=== PATIENT | female | born 1940 | race Caucasian/White ===

== ENCOUNTER 2017-10-26 20:28 | Emergency (ER) | payer MEDICARE, OTHER ==
[~2017-10-26] VITALS: Ht 161.3 cm; Wt 79.5 kg
[~2017-10-26 20:28] MED LIST: AMIO200T57 PO; ASPI-1265 PO; ATOR40TA3 PO; CARV-49 PO; CLOP75TA15 PO; FERR325T29 PO; GLIM1TAB PO; LANTUS SUBCUT; LEVO100T PO; METF10004 PO; SITA50TA PO; VENL150C2 PO; WARF4TAB69 PO
[2017-10-26 23:46] VITALS: BP 132/74
== END 2017-10-27 00:34 | disposition home or self-care (01) ==
LOC: ER 20:28
DX: S93.601A Unspecified sprain of right foot, initial encounter (principal); S83.91XA Sprain of unspecified site of right knee, initial encounter; I25.10 Atherosclerotic heart disease of native coronary artery without angina pectoris; E03.9 Hypothyroidism, unspecified; Z79.82 Long term (current) use of aspirin; Z79.4 Long term (current) use of insulin; Z79.01 Long term (current) use of anticoagulants; Z79.899 Other long term (current) drug therapy; Z90.49 Acquired absence of other specified parts of digestive tract; Z95.1 Presence of aortocoronary bypass graft; Z98.890 Other specified postprocedural states; W18.30XA Fall on same level, unspecified, initial encounter; Y93.89 Activity, other specified; Y92.89 Other specified places as the place of occurrence of the external cause; Y99.8 Other external cause status
CPT/HCPCS: 73564; 73610; 82948; 99284

== ENCOUNTER 2018-08-09 07:02 | Day surgery (SDC) | payer MEDICARE, OTHER ==
[2018-08-08 12:17] LABS: BASOPHILS # (AUTO) 0.1 X10'3 (0-0.2); BASOPHILS % (AUTO) 0.6 % (0-1); EOSINOPHILS % (AUTO) 0.2 % (0-6); HEMATOCRIT 35.4 % (35.0-45.0); HEMOGLOBIN 11.7 g/dl (12.0-16.0); LYMPHOCYTES # (AUTO) 1.2 X10'3 (1.1-4.8); LYMPHOCYTES % (AUTO) 11.6 % (21-51); MEAN CORPUSCULAR HEMOGLOBIN 29.3 PG (27.0-31.0); MEAN CORPUSCULAR VOLUME 88.8 FL (78-98); MEAN PLATELET VOLUME 7.6 FL (7.4-10.4); MONOCYTES # (AUTO) 1.1 X10'3 (0-0.9); MONOCYTES % (AUTO) 10.5 % (2-12); NEUTROPHILS # (AUTO) 8.1 X10'3 (1.8-7.7); NEUTROPHILS % (AUTO) 77.1 % (42-75); PLATELET COUNT 209 X10'3 (140-440); RED BLOOD COUNT 3.99 X10'6 (4.20-5.60); RED CELL DISTRIBUTION WIDTH 14.3 % (11.5-14.5); WHITE BLOOD COUNT 10.5 X10'3 (4.5-11.0)
[2018-08-08 12:25] LABS: ALBUMIN 3.2 G/DL (3.4-5.0); ANION GAP 7 (8-16); BLOOD UREA NITROGEN 39 MG/DL (7-18); BUN/CREATININE RATIO 34.2 (6.6-38.0); CALCIUM 9.4 MG/DL (8.5-10.1); CHLORIDE 102 MMOL/L (99-107); CREATININE 1.14 MG/DL (0.40-0.90); GLUCOSE 212 MG/DL (70-104); POTASSIUM 4.3 MMOL/L (3.5-5.1); SODIUM 137 MMOL/L (135-145); TOTAL CARBON DIOXIDE 28.1 MMOL/L (24-32); eGFR 46 ML/MIN
[2018-08-08 12:32] LABS: PARTIAL THROMBOPLASTIN TIME 29 SECONDS (22-32); PROTHROMBIN TIME 10.1 SECONDS (9.0-12.0)
[2018-08-09] VITALS (14 sets, daily range): BP systolic 99–155; BP diastolic 53–77
[~2018-08-09] VITALS: Ht 160 cm; Wt 75.1 kg
[~2018-08-09 07:02] MED LIST changes: +AMIO200T40 PO; -AMIO200T57 PO; -ATOR40TA3 PO; +ATOR40TA7 PO; +METF-438 PO; -METF10004 PO
[2018-08-09] MEDS ORDERED: acetylcysteine 200 MG/ml 4ml vial PO PRN (07:35)
[2018-08-09] MEDS ORDERED: sodium bicarbonate (8.4%) inj. 150 ML in dextrose 5%-water 1,000 ML IV ONE (07:35)
[2018-08-09] MEDS ORDERED: diphenhydrAMINE 25mg capsule PO PRN (07:35)
[2018-08-09] MEDS ORDERED: LORazepam 0.5 MG tablet PO PRN (07:35)
[2018-08-09] MEDS ORDERED: midazolam 2 mg/2 ml injection ONE (09:19)
[2018-08-09] MEDS ORDERED: fentaNYL/PF 50MCG/1 ML 2ML syringe ONE (09:19)
[2018-08-09] MEDS ORDERED: heparin 1,000unit/ml 10ml vial 10 ML ONE (09:19)
[2018-08-09] MEDS ORDERED: nitroGLYCERIN-Tridil 50MG/D5W 250 ML IV ONE (09:19)
[2018-08-09] MEDS ORDERED: LIDOcaine 1% (10mg/ml)w/preservative injection 20ml MDV ONE (09:19)
[2018-08-09] MEDS ORDERED: iohexol 350MG/ML 100ml bottle IV ONE ×2 (09:20→10:28)
[2018-08-09] MEDS ORDERED: iohexol 350 MG/ML 50ML vial IV ONE ×2 (09:20→10:17)
[2018-08-09] MEDS ORDERED: AMLO5TAB PO (09:54)
[2018-08-09] MEDS ORDERED: APIX2.5T PO (09:54)
[2018-08-09] MEDS ORDERED: ROSU40TA PO (09:54)
[2018-08-09] MEDS ORDERED: CARV3.122 PO (09:54)
[2018-08-09] MEDS ORDERED: adenosine 90 MG/30ml kit =/or below 120kg Cath Lab IV ONE (10:38)
== END 2018-08-09 18:00 | disposition home or self-care (01) ==
LOC: SSTAY O 07:02
PROVIDERS: ATTEND Internal Medicine Cardiovascular Disease
DX: I25.10 Atherosclerotic heart disease of native coronary artery without angina pectoris (principal); E78.5 Hyperlipidemia, unspecified; E11.9 Type 2 diabetes mellitus without complications; E03.9 Hypothyroidism, unspecified; I11.0 Hypertensive heart disease with heart failure; I42.0 Dilated cardiomyopathy; K21.9 Gastro-esophageal reflux disease without esophagitis; I48.1 Persistent atrial fibrillation; I50.22 Chronic systolic (congestive) heart failure; F32.9 Major depressive disorder, single episode, unspecified; Z79.4 Long term (current) use of insulin; Z79.899 Other long term (current) drug therapy; Z90.710 Acquired absence of both cervix and uterus; Z96.653 Presence of artificial knee joint, bilateral; Z95.5 Presence of coronary angioplasty implant and graft; Z98.890 Other specified postprocedural states
CPT/HCPCS: 36415; 80048; 82948; 85025; 85610; 85730; 93005; 93459; 93567; 93571; 99152; 99153; A6257; C1769; J0153; J1644; J2001; J2250; J3010; Q0163; Q9967; A4620; C1760; J3490

== ENCOUNTER 2018-08-22 10:11 | Inpatient (IN) | payer MEDICARE, OTHER | END 2018-08-25 19:20 | disposition home or self-care (01) | LOC: MED 3N 08-24 08:24 → ER 10:11 → SUR 3N 13:35 | DX: J18.1 Lobar pneumonia, unspecified organism (principal); I50.23 Acute on chronic systolic (congestive) heart failure; J96.00 Acute respiratory failure, unspecified whether with hypoxia or hypercapnia; I42.9 Cardiomyopathy, unspecified; E11.9 Type 2 diabetes mellitus without complications; Z95.1 Presence of aortocoronary bypass graft; I25.10 Atherosclerotic heart disease of native coronary artery without angina pectoris ==

== ENCOUNTER 2018-12-18 16:22 | Inpatient (IN) | payer MEDICARE, OTHER ==
[~2018-12-18] VITALS: Ht 160 cm; Wt 68.7 kg
[~2018-12-18 16:22] MED LIST changes: -AMIO200T40 PO; +AMIO200T61 PO; +AMLO2.5T5 PO; +APIX2.5T PO; -ASPI-1265 PO; -ATOR40TA7 PO; -CARV-49 PO; +CARV3.122 PO; -CLOP75TA15 PO; -FERR325T29 PO; -LEVO100T PO; +LEVO112T52 PO; +NITR0.4T48 SL; +ROSU40TA22; -WARF4TAB69 PO
[2018-12-18 17:09] LABS: BASOPHILS # (AUTO) 0.1 X10'3 (0-0.2); EOSINOPHILS % (AUTO) 0.4 % (0-6); HEMATOCRIT 31.5 % (35.0-45.0); HEMOGLOBIN 10.2 g/dl (12.0-16.0); LYMPHOCYTES # (AUTO) 1.2 X10'3 (1.1-4.8); LYMPHOCYTES % (AUTO) 16.5 % (21-51); MEAN CORPUSCULAR HEMOGLOBIN 28.9 PG (27.0-31.0); MEAN CORPUSCULAR HGB CONC 32.3 g/dL (33.0-36.5); MEAN CORPUSCULAR VOLUME 89.4 FL (78-98); MEAN PLATELET VOLUME 7.5 FL (7.4-10.4); MONOCYTES # (AUTO) 0.6 X10'3 (0-0.9); MONOCYTES % (AUTO) 8.9 % (2-12); NEUTROPHILS # (AUTO) 5.3 X10'3 (1.8-7.7); NEUTROPHILS % (AUTO) 73.2 % (42-75); PLATELET COUNT 232 X10'3 (140-440); RED BLOOD COUNT 3.52 X10'6 (4.20-5.60); RED CELL DISTRIBUTION WIDTH 15.1 % (11.5-14.5); WHITE BLOOD COUNT 7.2 X10'3 (4.5-11.0)
[2018-12-18 17:22] LABS: PARTIAL THROMBOPLASTIN TIME 32 SECONDS (22-32)
[2018-12-18 17:23] LABS: ALANINE AMINOTRANSFERASE 45 U/L (12-78); ALBUMIN 3.2 G/DL (3.4-5.0); ALBUMIN/GLOBULIN RATIO 0.9 (1.1-1.5); ALKALINE PHOSPHATASE 76 IU/L (46-116); ANION GAP 7 (8-16); ASPARTATE AMINO TRANSFERASE 16 U/L (10-37); BILIRUBIN,TOTAL 0.3 MG/DL (0.1-1.0); BLOOD UREA NITROGEN 38 MG/DL (7-18); BUN/CREATININE RATIO 28.6 (6.6-38.0); CALCIUM 8.8 MG/DL (8.5-10.1); CHLORIDE 107 MMOL/L (99-107); CREATININE 1.33 MG/DL (0.40-0.90); GLUCOSE 153 MG/DL (70-104); POTASSIUM 5.1 MMOL/L (3.5-5.1); SODIUM 139 MMOL/L (135-145); TOTAL CARBON DIOXIDE 24.8 MMOL/L (24-32); TOTAL PROTEIN 6.8 G/DL (6.4-8.2); eGFR 39 ML/MIN
[2018-12-18 17:30] LABS: MAGNESIUM 1.5 MG/DL (1.5-2.4)
[2018-12-18] MEDS ORDERED: furosemide 10 MG/1 ML 10ml inj IV ONE (17:35)
[2018-12-18] MEDS ORDERED: ondansetron/PF 4mg/2ml inj IV PRN (17:55)
[2018-12-18] MEDS ORDERED: acetaminophen 325mg tablet PO PRN (17:55)
[2018-12-18] MEDS ORDERED: mag hydrox/Alum hydrox/simeth 30ml oral suspension PO PRN (17:55)
[2018-12-18] MEDS ORDERED: magnesium hydroxide 30ml (MOM) UD suspension PO PRN (17:55)
[2018-12-18] MEDS ORDERED: APIX5TAB3 PO (17:58)
[2018-12-18] MEDS ORDERED: LEVO100T PO (17:58)
--- NOTE | 2018-12-18 18:33 | NUR ---
Patient resting comfortably in bed. She requests a commode to urinate. Patient assisted with minimum assisnt to transfer to commode. Patient requests assistance making a phone call which was done. Patient updated on POC and has no other questions or requests at this time.
[2018-12-18] MEDS ORDERED: nitroGLYCERIN 0.4mg SUBLingual tab SL PRN (18:35)
[2018-12-18 21:00] VITALS: BP 94/70
[2018-12-18] MEDS: carVEDilol 3.125mg tablet PO SCH (21:00)
[2018-12-18] MEDS: furosemide 10 MG/1 ML 10ml inj IV SCH (21:00)
--- NOTE | 2018-12-18 21:00 | NUR ---
pt arrived from ER via [place], ambulated to bed. oriented to unit. call light, bed low and locked. skin check and MRSA swab done. pt requested admission assessment be done in the morning
[2018-12-18] MEDS ORDERED: glucagon, human recombinant 1mg kit SUBCUT PRN (22:15)
[2018-12-18] MEDS ORDERED: MESSAGE TO PHARMACY PO ONE (22:15)
[2018-12-18] MEDS ORDERED: dextrose ORAL solution 15 GM/59 ML bottle PO PRN ×2 (22:15)
[2018-12-18] MEDS ORDERED: dextrose 50%-water 50ml dispensing syringe IV PRN ×2 (22:15)
[2018-12-18] MEDS: apixaban 5mg tablet PO SCH (22:27)
[2018-12-18] MEDS: insulin glargine (Lantus) pen - multi-dose SQ SCH (22:31)
[2018-12-18 23:00] VITALS: BP 111/41
[2018-12-19 03:00] VITALS: BP 125/77
--- NOTE | 2018-12-19 05:40 | NUR ---
pt complained that she felt a lot of bladder pressure and was unable to void. bladder scan showed 1000, orders for Lantigua obtained. got pt up to BSC, she was able to void about 400. pt would prefer to try to use BSC more before getting Lantigua
[2018-12-19 05:58] LABS: BASOPHILS # (AUTO) 0.1 X10'3 (0-0.2); EOSINOPHILS % (AUTO) 0.1 % (0-6); HEMATOCRIT 32.1 % (35.0-45.0); HEMOGLOBIN 10.7 g/dl (12.0-16.0); LYMPHOCYTES # (AUTO) 1.5 X10'3 (1.1-4.8); LYMPHOCYTES % (AUTO) 22.7 % (21-51); MEAN CORPUSCULAR HEMOGLOBIN 29.2 PG (27.0-31.0); MEAN CORPUSCULAR HGB CONC 33.4 g/dL (33.0-36.5); MEAN CORPUSCULAR VOLUME 87.4 FL (78-98); MEAN PLATELET VOLUME 7.1 FL (7.4-10.4); MONOCYTES # (AUTO) 0.7 X10'3 (0-0.9); MONOCYTES % (AUTO) 11.2 % (2-12); NEUTROPHILS # (AUTO) 4.4 X10'3 (1.8-7.7); PLATELET COUNT 236 X10'3 (140-440); RED BLOOD COUNT 3.67 X10'6 (4.20-5.60); RED CELL DISTRIBUTION WIDTH 15.1 % (11.5-14.5); WHITE BLOOD COUNT 6.7 X10'3 (4.5-11.0)
[2018-12-19 06:11] LABS: ALBUMIN 3.3 G/DL (3.4-5.0); ANION GAP 8 (8-16); BLOOD UREA NITROGEN 39 MG/DL (7-18); BUN/CREATININE RATIO 28.7 (6.6-38.0); CALCIUM 9.2 MG/DL (8.5-10.1); CHLORIDE 108 MMOL/L (99-107); CREATININE 1.36 MG/DL (0.40-0.90); GLUCOSE 66 MG/DL (70-104); SODIUM 143 MMOL/L (135-145); TOTAL CARBON DIOXIDE 26.7 MMOL/L (24-32); eGFR 38 ML/MIN
--- NOTE | 2018-12-19 06:30 | NUR ---
orientee documentation: I have reviewed and agree with all interventions, assessments performed and documented by zander yoon.
--- NOTE | 2018-12-19 06:30 | NUR ---
Problems reprioritized. Patient report given, questions answered & plan of care reviewed with Katya WALLACE.
--- NOTE | 2018-12-19 06:37 | NUR ---
Patient in room PCU 3014A . I have received report from RODRIGO Ashley and had the opportunity to ask questions and assume patient care. Pt resting comfortably at this time, all needs met.
[2018-12-19 07:00] VITALS: BP 142/47
[2018-12-19] MEDS ORDERED: linagliptin 5mg tablet PO SCH (08:00)
[2018-12-19] MEDS: carVEDilol 3.125mg tablet PO SCH ×2 (08:00→20:00)
[2018-12-19] MEDS: atorvastatin 20mg tablet PO SCH (08:09)
[2018-12-19] MEDS: apixaban 5mg tablet PO SCH ×2 (08:09→20:52)
[2018-12-19] MEDS: levoTHYROXINE 100mcg tablet PO SCH (08:09)
[2018-12-19] MEDS: venlafaxine XR 75mg capsule (Q24H) PO SCH ×2 (08:09→17:08)
[2018-12-19] MEDS: amiodarone 200mg tablet PO SCH (08:09)
[2018-12-19] MEDS: amLODIPine 2.5mg tablet PO SCH (08:10)
[2018-12-19] MEDS: furosemide 10 MG/1 ML 10ml inj IV SCH (08:11)
[2018-12-19 11:00] VITALS: BP 117/45
[2018-12-19] MEDS: insulin Lispro (HumaLOG) vial - multi-dose SQ SCH (13:16)
[2018-12-19 15:00] VITALS: BP 125/81
--- NOTE | 2018-12-19 18:24 | NUR ---
Problems reprioritized. Patient report given, questions answered & plan of care reviewed with RODRIGO Ashley.
--- NOTE | 2018-12-19 18:27 | NUR ---
I have reviewed and agree with all interventions, assessments performed and documented by Negin WALLACE.
--- NOTE | 2018-12-19 18:30 | NUR ---
Patient in room PCU 3014. I have received report from day shift RN and had the opportunity to ask questions and assume patient care with Missy WALLACE.
[2018-12-19 19:00] VITALS: BP 111/50
[2018-12-19] MEDS: furosemide 40mg/4ml inj IV SCH (20:56)
[2018-12-19] MEDS: insulin glargine (Lantus) pen - multi-dose SQ SCH (21:04)
[2018-12-19 23:00] VITALS: BP 124/53
[2018-12-20 03:00] VITALS: BP 126/52
[2018-12-20 05:23] LABS: BASOPHILS # (AUTO) 0.1 X10'3 (0-0.2); BASOPHILS % (AUTO) 0.6 % (0-1); EOSINOPHILS % (AUTO) 0.4 % (0-6); HEMATOCRIT 35.5 % (35.0-45.0); HEMOGLOBIN 11.9 g/dl (12.0-16.0); LYMPHOCYTES # (AUTO) 1.7 X10'3 (1.1-4.8); LYMPHOCYTES % (AUTO) 17.1 % (21-51); MEAN CORPUSCULAR HEMOGLOBIN 29.2 PG (27.0-31.0); MEAN CORPUSCULAR HGB CONC 33.4 g/dL (33.0-36.5); MEAN CORPUSCULAR VOLUME 87.5 FL (78-98); MEAN PLATELET VOLUME 7.2 FL (7.4-10.4); MONOCYTES % (AUTO) 10.6 % (2-12); NEUTROPHILS % (AUTO) 71.3 % (42-75); PLATELET COUNT 257 X10'3 (140-440); RED BLOOD COUNT 4.06 X10'6 (4.20-5.60); WHITE BLOOD COUNT 9.8 X10'3 (4.5-11.0)
[2018-12-20 05:35] LABS: ALBUMIN 3.5 G/DL (3.4-5.0); ANION GAP 9 (8-16); BLOOD UREA NITROGEN 43 MG/DL (7-18); BUN/CREATININE RATIO 28.3 (6.6-38.0); CALCIUM 9.4 MG/DL (8.5-10.1); CHLORIDE 103 MMOL/L (99-107); CREATININE 1.52 MG/DL (0.40-0.90); GLUCOSE 103 MG/DL (70-104); POTASSIUM 4.2 MMOL/L (3.5-5.1); SODIUM 141 MMOL/L (135-145); TOTAL CARBON DIOXIDE 29.4 MMOL/L (24-32); eGFR 33 ML/MIN
--- NOTE | 2018-12-20 06:10 | NUR ---
Problems reprioritized. Patient report given, questions answered & plan of care reviewed with Jodie WALLACE. orientee documentation: I have reviewed and agree with all interventions, assessments performed and documented by Missy WALLACE.
--- NOTE | 2018-12-20 06:11 | NUR ---
Patient in room PCU 3014. I have received report from RODRIGO Ashley and had the opportunity to ask questions and assume patient care.
[2018-12-20 07:00] VITALS: BP 154/62
[2018-12-20] MEDS: venlafaxine XR 75mg capsule (Q24H) PO SCH (07:57)
[2018-12-20] MEDS: carVEDilol 3.125mg tablet PO SCH (07:57)
[2018-12-20] MEDS: amiodarone 200mg tablet PO SCH (07:57)
[2018-12-20] MEDS: furosemide 40mg/4ml inj IV SCH (07:57)
[2018-12-20] MEDS: atorvastatin 20mg tablet PO SCH (07:57)
[2018-12-20] MEDS: amLODIPine 2.5mg tablet PO SCH (07:57)
[2018-12-20] MEDS: levoTHYROXINE 100mcg tablet PO SCH (07:57)
[2018-12-20] MEDS: apixaban 5mg tablet PO SCH (07:58)
[2018-12-20] MEDS: insulin Lispro (HumaLOG) vial - multi-dose SQ SCH ×2 (08:46→13:50)
[2018-12-20 11:00] VITALS: BP 124/49
[2018-12-20] MEDS ORDERED: FURO-149 PO (11:19)
[2018-12-20] MEDS ORDERED: POTA10TA36 PO (11:22)
--- NOTE | 2018-12-20 14:00 | NUR ---
02 removed - SA02 on room air is 93%. There is no sob or other difficulty noted.
--- NOTE | 2018-12-20 14:35 | NUR ---
Dr. Roman's office called to set up appointment. They said they will have to talk to the MD about the appt as patient is currently having daily visits and they don't know if he wants to continue them. Asked them to call me so that I could document that in the chart. At time of discharge, I had not heard back yet.
--- NOTE | 2018-12-20 15:26 | NUR ---
1510 - Patient discharged home to the care of her daughter, taken to car per wheelchair. Instructions reviewed. Dr. Roman's office to call her for appt per their request.
== END 2018-12-20 15:10 | disposition home or self-care (01) | DRG 291 ==
LOC: ER 16:23 → PCU 3S 20:26 → CMPBEDREQ 21:13
PROVIDERS: ADMIT Family Medicine; ATTEND Internal Medicine
DX: I11.0 Hypertensive heart disease with heart failure (principal); J96.91 Respiratory failure, unspecified with hypoxia; I50.23 Acute on chronic systolic (congestive) heart failure; E03.9 Hypothyroidism, unspecified; E11.9 Type 2 diabetes mellitus without complications; F32.9 Major depressive disorder, single episode, unspecified; E78.5 Hyperlipidemia, unspecified; R00.1 Bradycardia, unspecified; R55 Syncope and collapse; Z60.2 Problems related to living alone; I25.10 Atherosclerotic heart disease of native coronary artery without angina pectoris; I35.0 Nonrheumatic aortic (valve) stenosis; I48.0 Paroxysmal atrial fibrillation; Z79.4 Long term (current) use of insulin; Z90.710 Acquired absence of both cervix and uterus; Z95.1 Presence of aortocoronary bypass graft; Z95.5 Presence of coronary angioplasty implant and graft; Z79.84 Long term (current) use of oral hypoglycemic drugs; Z90.49 Acquired absence of other specified parts of digestive tract; Z79.01 Long term (current) use of anticoagulants
CPT/HCPCS: 36415; 71045; 80048; 80053; 82948; 83036; 83735; 83880; 84484; 85025; 85610; 85730; 87081; 93005; 93306; 93971; 96374; 99285; G0378; J1815; J1940

== ENCOUNTER 2019-01-19 09:46 | Inpatient (IN) | payer MEDICARE, OTHER ==
[~2019-01-19] VITALS: Ht 161.3 cm; Wt 68.2 kg
[~2019-01-19 09:46] MED LIST changes: -APIX2.5T PO; +APIX5TAB3 PO; +FURO-149 PO; +LEVO100T PO; -LEVO112T52 PO; +POTA10TA36 PO
[2019-01-19 10:38] LABS: BASOPHILS % (AUTO) 0.6 % (0-1); EOSINOPHILS % (AUTO) 0 % (0-6); HEMATOCRIT 37.4 % (35.0-45.0); HEMOGLOBIN 12.2 g/dl (12.0-16.0); LYMPHOCYTES # (AUTO) 1.2 X10'3 (1.1-4.8); LYMPHOCYTES % (AUTO) 18.2 % (21-51); MEAN CORPUSCULAR HGB CONC 32.6 g/dL (33.0-36.5); MEAN CORPUSCULAR VOLUME 88.8 FL (78-98); MEAN PLATELET VOLUME 8.2 FL (7.4-10.4); MONOCYTES # (AUTO) 0.5 X10'3 (0-0.9); MONOCYTES % (AUTO) 7.3 % (2-12); NEUTROPHILS # (AUTO) 4.9 X10'3 (1.8-7.7); NEUTROPHILS % (AUTO) 73.9 % (42-75); PLATELET COUNT 180 X10'3 (140-440); RED BLOOD COUNT 4.21 X10'6 (4.20-5.60); RED CELL DISTRIBUTION WIDTH 15.4 % (11.5-14.5); WHITE BLOOD COUNT 6.6 X10'3 (4.5-11.0)
[2019-01-19 10:53] LABS: PARTIAL THROMBOPLASTIN TIME 29 SECONDS (22-32)
[2019-01-19 11:05] LABS: ALANINE AMINOTRANSFERASE 79 U/L (12-78); ALBUMIN 3.7 G/DL (3.4-5.0); ALKALINE PHOSPHATASE 82 IU/L (46-116); ANION GAP 13 (8-16); ASPARTATE AMINO TRANSFERASE 29 U/L (10-37); BILIRUBIN,TOTAL 0.3 MG/DL (0.1-1.0); BLOOD UREA NITROGEN 58 MG/DL (7-18); BUN/CREATININE RATIO 30.4 (6.6-38.0); CALCIUM 9.4 MG/DL (8.5-10.1); CHLORIDE 105 MMOL/L (99-107); CREATININE 1.91 MG/DL (0.40-0.90); GLUCOSE 138 MG/DL (70-104); LIPASE 239 U/L (73-393); MAGNESIUM 1.5 MG/DL (1.5-2.4); POTASSIUM 5.2 MMOL/L (3.5-5.1); SODIUM 142 MMOL/L (135-145); TOTAL CARBON DIOXIDE 24.3 MMOL/L (24-32); TOTAL PROTEIN 7.4 G/DL (6.4-8.2); eGFR 25 ML/MIN
[2019-01-19] MEDS ORDERED: normal saline 1000ML IV soln IVB ONE (11:05)
[2019-01-19] MEDS ORDERED: insulin regular, human 10 units/0.1 ml syringe IV ONE (11:30)
[2019-01-19] MEDS ORDERED: dextrose 50%-water 50ml dispensing syringe IV ONE (11:30)
[2019-01-19] MEDS ORDERED: BUME1TAB8 PO (12:16)
--- NOTE | 2019-01-19 12:16 | NUR ---
PT attempted to use the bedside commode and was only able to void a few drops of urine. Pt reports the urge to void but unable to do so.
[2019-01-19] MEDS ORDERED: POTA10CA44 PO (12:17)
[2019-01-19] MEDS ORDERED: METF500T20 PO (12:19)
[2019-01-19] MEDS ORDERED: LOSA25TA41 PO (12:19)
[2019-01-19] MEDS ORDERED: HYDROcodone/acetaminophen 5mg/325mg tablet PO PRN (12:35)
[2019-01-19] MEDS ORDERED: bisacodyl 10mg suppository rectal RC PRN (12:35)
[2019-01-19] MEDS ORDERED: ondansetron/PF 4mg/2ml inj IV PRN (12:35)
[2019-01-19] MEDS ORDERED: metoclopramide 5 mg/ml inj IV PRN (12:35)
[2019-01-19] MEDS ORDERED: HYDROcodone/acetaminophen 10/325mg tab PO PRN (12:35)
[2019-01-19] MEDS: K and/or MAG REPLACEMENT MC SCH (12:35)
[2019-01-19] MEDS ORDERED: MESSAGE TO PHARMACY PO ONE (12:35)
[2019-01-19] MEDS ORDERED: magnesium 4gm in 100ml NS 100 ML IV PRN (12:35)
[2019-01-19] MEDS ORDERED: potassium Cl 20 mEq SR tablet PO PRN ×2 (12:35)
[2019-01-19] MEDS ORDERED: dextrose ORAL solution 15 GM/59 ML bottle PO PRN ×2 (12:35)
[2019-01-19] MEDS ORDERED: nitroGLYCERIN 0.4mg SUBLingual tab SL PRN (12:35)
[2019-01-19] MEDS ORDERED: magnesium 2GM in 50ml NS 50 ML IV PRN (12:35)
[2019-01-19] MEDS ORDERED: dextrose 50%-water 50ml dispensing syringe IV PRN ×2 (12:35)
[2019-01-19] MEDS ORDERED: potassium CL 10mEq/100ml bag 100 ML IV PRN ×2 (12:35)
[2019-01-19] MEDS ORDERED: diphenhydrAMINE 25mg capsule PO PRN (12:35)
[2019-01-19] MEDS ORDERED: acetaminophen 650mg rectal suppository RC PRN (12:35)
[2019-01-19] MEDS ORDERED: glucagon, human recombinant 1mg kit SUBCUT PRN (12:35)
[2019-01-19] MEDS ORDERED: mag hydrox/Alum hydrox/simeth 30ml oral suspension PO PRN (12:35)
[2019-01-19] MEDS ORDERED: morphine 2 MG/ML inj. syringe IV PRN ×2 (12:35)
[2019-01-19] MEDS ORDERED: magnesium Cl slow-release 64mg tablet PO PRN (12:35)
[2019-01-19] MEDS ORDERED: magnesium hydroxide 30ml (MOM) UD suspension PO PRN (12:35)
[2019-01-19] MEDS ORDERED: acetaminophen 325mg tablet PO PRN ×2 (12:35)
[2019-01-19] MEDS ORDERED: sodium polystyrene sulfonate 15gm/60ml oral suspension PO ONE (12:45)
--- NOTE | 2019-01-19 13:10 | NUR ---
Recieved report from [facility] for admitting pt. Had chance to ask questions and plan of care.
--- NOTE | 2019-01-19 13:20 | NUR ---
Pt arrived to unit from ER via gurney. She easily transferred to bed A. She is A&Ox3, NAD. She ambulated to BR with 1x assist and was able to void. UA was collected and sent to lab.
[2019-01-19 14:48] VITALS: BP 140/49
[2019-01-19 14:49] LABS: CLARITY,URINE SLIGHTLY CLOUDY (Clear); COLOR,URINE YELLOW (Yellow); GLUCOSE, URINE NEGATIVE (Neg); KETONES,URINE NEGATIVE (Neg); LEUKOCYTE ESTERASE ,URINE NEGATIVE (Neg); NITRITES, URINE NEGATIVE (Neg); OCCULT BLOOD,URINE TRACE-INTACT (Neg); PROTEIN,URINE 30 mg/dl (Neg); UROBILINOGEN,URINE 0.2 E.U/dL (0.2-1.0)
[2019-01-19 14:50] LABS: UA COLLECTION TYPE CLN CATCH MIDSTREAM
[2019-01-19 15:03] LABS: SQUAMOUS EPITHELIAL CELL,UR MODERATE /LPF (FEW)
[2019-01-19 15:04] LABS: HYALINE CASTS 0-3 /LPF (NEGATIVE); MUCUS STRANDS FEW /LPF (Neg)
[2019-01-19 15:14] LABS: AMORPHOUS URATES 1+
[2019-01-19 15:16] LABS: BACTERIA,URINE 1+ /HPF (Neg)
[2019-01-19] MEDS: normal saline 1000ml 1,000 ML IV SCH (15:55)
[2019-01-19] MEDS: pantoprazole 40 MG vial IV SCH (16:01)
[2019-01-19] MEDS: venlafaxine XR 75mg capsule (Q24H) PO SCH (18:16)
--- NOTE | 2019-01-19 18:36 | NUR ---
Patient in room U 3015. I have received report from RODRIGO ROCK and had the opportunity to ask questions and assume patient care. Addendum: 01/19/19 at 1837 by Shefali Miller RN Amended: Links added.
[2019-01-19 19:00] VITALS: BP 130/76
--- NOTE | 2019-01-19 19:01 | NUR ---
Problems reprioritized. Patient report given, questions answered & plan of care reviewed with RODRIGO Meehan .
[2019-01-19] MEDS: apixaban 5mg tablet PO SCH (19:56)
[2019-01-19] MEDS: carVEDilol 3.125mg tablet PO SCH (19:57)
[2019-01-19] MEDS ORDERED: temazepam 15mg capsule PO PRN (21:00)
[2019-01-19] MEDS: insulin glargine (Lantus) pen - multi-dose SQ SCH (21:00)
[2019-01-19 22:00] VITALS: BP 100/32
[2019-01-19] MEDS ORDERED: CefTRIAXone/D5W-Rocephin 1gm 50 ML IV SCH (23:30)
[2019-01-19] MEDS ORDERED: furosemide 20 MG/2 ML vial IV ONE (23:30)
[2019-01-20] VITALS (8 sets, daily range): BP systolic 83–187; BP diastolic 35–98
--- NOTE | 2019-01-20 06:42 | NUR ---
Problems reprioritized. Patient report given, questions answered & plan of care reviewed with RODRIGO Kerr.
--- NOTE | 2019-01-20 06:51 | NUR ---
Patient in room PCU 3015. I have received report from Tonya WALLACE and had the opportunity to ask questions and assume patient care.
[2019-01-20 07:02] LABS: BASOPHILS % (AUTO) 0.5 % (0-1); EOSINOPHILS % (AUTO) 0 % (0-6); HEMATOCRIT 31.3 % (35.0-45.0); HEMOGLOBIN 10.5 g/dl (12.0-16.0); LYMPHOCYTES # (AUTO) 1.3 X10'3 (1.1-4.8); LYMPHOCYTES % (AUTO) 22.5 % (21-51); MEAN CORPUSCULAR HEMOGLOBIN 29.5 PG (27.0-31.0); MEAN CORPUSCULAR HGB CONC 33.5 g/dL (33.0-36.5); MEAN CORPUSCULAR VOLUME 87.9 FL (78-98); MEAN PLATELET VOLUME 8.4 FL (7.4-10.4); MONOCYTES # (AUTO) 0.6 X10'3 (0-0.9); MONOCYTES % (AUTO) 9.9 % (2-12); NEUTROPHILS % (AUTO) 67.1 % (42-75); PLATELET COUNT 150 X10'3 (140-440); RED BLOOD COUNT 3.56 X10'6 (4.20-5.60); RED CELL DISTRIBUTION WIDTH 15.9 % (11.5-14.5); WHITE BLOOD COUNT 5.9 X10'3 (4.5-11.0)
[2019-01-20 07:19] LABS: ALANINE AMINOTRANSFERASE 64 U/L (12-78); ALBUMIN 3.1 G/DL (3.4-5.0); ALKALINE PHOSPHATASE 73 IU/L (46-116); ANION GAP 10 (8-16); ASPARTATE AMINO TRANSFERASE 24 U/L (10-37); BILIRUBIN,TOTAL 0.3 MG/DL (0.1-1.0); BLOOD UREA NITROGEN 56 MG/DL (7-18); BUN/CREATININE RATIO 28.3 (6.6-38.0); CALCIUM 8.6 MG/DL (8.5-10.1); CHLORIDE 108 MMOL/L (99-107); CREATININE 1.98 MG/DL (0.40-0.90); GLUCOSE 115 MG/DL (70-104); MAGNESIUM 1.7 MG/DL (1.5-2.4); PHOSPHORUS 3.6 MG/DL (2.3-4.5); POTASSIUM 4.2 MMOL/L (3.5-5.1); SODIUM 143 MMOL/L (135-145); TOTAL CARBON DIOXIDE 25.3 MMOL/L (24-32); TOTAL PROTEIN 6.3 G/DL (6.4-8.2); eGFR 24 ML/MIN
[2019-01-20] MEDS: levoTHYROXINE 100mcg tablet PO SCH (07:21)
[2019-01-20] MEDS: atorvastatin 20mg tablet PO SCH (07:22)
[2019-01-20] MEDS: apixaban 5mg tablet PO SCH ×2 (07:22→19:55)
[2019-01-20] MEDS: venlafaxine XR 75mg capsule (Q24H) PO SCH ×2 (07:23→16:57)
[2019-01-20] MEDS: furosemide 20 MG/2 ML vial IV SCH ×2 (07:24→19:55)
[2019-01-20] MEDS: bumetanide 1mg tablet PO SCH (07:25)
[2019-01-20] MEDS: amLODIPine 2.5mg tablet PO SCH (07:25)
[2019-01-20] MEDS: carVEDilol 3.125mg tablet PO SCH ×2 (07:26→19:55)
[2019-01-20] MEDS: pantoprazole 40 MG vial IV SCH (07:26)
[2019-01-20] MEDS: amiodarone 200mg tablet PO SCH (07:26)
[2019-01-20] MEDS: losartan 25mg tablet PO SCH (07:27)
[2019-01-20] MEDS: K and/or MAG REPLACEMENT MC SCH (07:32)
[2019-01-20] MEDS: normal saline 1000ml 1,000 ML IV SCH (09:23)
[2019-01-20] MEDS: insulin Lispro (HumaLOG) vial - multi-dose SQ SCH ×2 (13:04→18:41)
--- NOTE | 2019-01-20 13:40 | NUR ---
DM Consult: A1C <7 and not appropriate for ed at this time. Addendum: 01/20/19 at [address] Amended: Links added.
--- NOTE | 2019-01-20 15:56 | NUR ---
Jj hospitalist [phone] positive orthostatic vs from laying to sitting of 20 , will continue to monitor
--- NOTE | 2019-01-20 18:08 | NUR ---
Problems reprioritized. Patient report given, questions answered & plan of care reviewed with Jane WALLACE.
--- NOTE | 2019-01-20 18:30 | NUR ---
Patient in room PCU 3015. I have received report from RODRIGO Kerr and had the opportunity to ask questions and assume patient care.
[2019-01-20] MEDS: insulin glargine (Lantus) pen - multi-dose SQ SCH (20:58)
[2019-01-20] MEDS: CefTRIAXone/D5W-Rocephin 1gm 50 ML IV SCH (22:25)
[2019-01-21] VITALS (10 sets, daily range): BP systolic 82–147; BP diastolic 39–63
[2019-01-21] MEDS: normal saline 1000ml 1,000 ML IV SCH (04:35)
--- NOTE | 2019-01-21 06:10 | NUR ---
Problems reprioritized. Patient report given, questions answered & plan of care reviewed with RODRIGO Briggs.
--- NOTE | 2019-01-21 06:12 | NUR ---
Patient in room PCU 3015. I have received report from Jane WALLACE and had the opportunity to ask questions and assume patient care.
[2019-01-21 06:22] LABS: BASOPHILS # (AUTO) 0.1 X10'3 (0-0.2); BASOPHILS % (AUTO) 0.9 % (0-1); EOSINOPHILS % (AUTO) 0.1 % (0-6); HEMATOCRIT 35.3 % (35.0-45.0); HEMOGLOBIN 11.6 g/dl (12.0-16.0); LYMPHOCYTES # (AUTO) 2.1 X10'3 (1.1-4.8); LYMPHOCYTES % (AUTO) 26.1 % (21-51); MEAN CORPUSCULAR HEMOGLOBIN 29.2 PG (27.0-31.0); MEAN CORPUSCULAR VOLUME 88.5 FL (78-98); MEAN PLATELET VOLUME 8.4 FL (7.4-10.4); MONOCYTES # (AUTO) 0.9 X10'3 (0-0.9); MONOCYTES % (AUTO) 10.9 % (2-12); NEUTROPHILS # (AUTO) 5.1 X10'3 (1.8-7.7); PLATELET COUNT 145 X10'3 (140-440); RED BLOOD COUNT 3.98 X10'6 (4.20-5.60); RED CELL DISTRIBUTION WIDTH 15.5 % (11.5-14.5); WHITE BLOOD COUNT 8.1 X10'3 (4.5-11.0)
[2019-01-21 06:37] LABS: ALANINE AMINOTRANSFERASE 59 U/L (12-78); ALBUMIN 3.5 G/DL (3.4-5.0); ALKALINE PHOSPHATASE 81 IU/L (46-116); ANION GAP 6 (8-16); ASPARTATE AMINO TRANSFERASE 20 U/L (10-37); BILIRUBIN,TOTAL 0.2 MG/DL (0.1-1.0); BLOOD UREA NITROGEN 56 MG/DL (7-18); BUN/CREATININE RATIO 31.1 (6.6-38.0); CALCIUM 9.1 MG/DL (8.5-10.1); CHLORIDE 108 MMOL/L (99-107); GLUCOSE 98 MG/DL (70-104); MAGNESIUM 1.6 MG/DL (1.5-2.4); SODIUM 143 MMOL/L (135-145); TOTAL CARBON DIOXIDE 28.9 MMOL/L (24-32); TOTAL PROTEIN 6.9 G/DL (6.4-8.2); eGFR 27 ML/MIN
[2019-01-21] MEDS: K and/or MAG REPLACEMENT MC SCH (08:00)
[2019-01-21] MEDS: losartan 25mg tablet PO SCH (08:00)
[2019-01-21] MEDS: carVEDilol 3.125mg tablet PO SCH ×3 (08:00→22:24)
[2019-01-21] MEDS: amLODIPine 2.5mg tablet PO SCH (08:00)
[2019-01-21] MEDS: atorvastatin 20mg tablet PO SCH (08:16)
[2019-01-21] MEDS: amiodarone 200mg tablet PO SCH (08:16)
[2019-01-21] MEDS: venlafaxine XR 75mg capsule (Q24H) PO SCH ×2 (08:16→17:49)
[2019-01-21] MEDS: fludrocortisone acetate 0.1mg tablet PO SCH (08:16)
[2019-01-21] MEDS: apixaban 5mg tablet PO SCH ×2 (08:17→20:22)
[2019-01-21] MEDS: levoTHYROXINE 100mcg tablet PO SCH (08:17)
[2019-01-21] MEDS: spironolactone 25 MG tablet PO SCH (08:18)
[2019-01-21] MEDS: pantoprazole 40mg Tablet.DR PO SCH (08:18)
[2019-01-21] MEDS: furosemide 20 MG/2 ML vial IV SCH ×2 (08:18→20:22)
[2019-01-21] MEDS: bumetanide 1mg tablet PO SCH (10:10)
[2019-01-21] MEDS: insulin Lispro (HumaLOG) vial - multi-dose SQ SCH ×2 (13:11→18:54)
--- NOTE | 2019-01-21 18:23 | NUR ---
Problems reprioritized. Patient report given, questions answered & plan of care reviewed with qamar Gómez.
--- NOTE | 2019-01-21 18:31 | NUR ---
Patient in room PCU 3013. I have received report from RODRIGO Briggs and had the opportunity to ask questions and assume patient care.
[2019-01-21] MEDS: lactobacillus rhamnosus 10,000 MMU CELLS/CAPSULE PO SCH (20:17)
[2019-01-21] MEDS: CefTRIAXone/D5W-Rocephin 1gm 50 ML IV SCH (22:25)
[2019-01-21] MEDS: insulin glargine (Lantus) pen - multi-dose SQ SCH (23:09)
[2019-01-22 02:00] VITALS: BP_SYST 104; BP_SYST 142; BP_SYST 94; BP_DIAS 42; BP_DIAS 51; BP_DIAS 58
[2019-01-22] MEDS: normal saline 1000ml 1,000 ML IV SCH (03:13)
[2019-01-22 06:13] LABS: BASOPHILS % (AUTO) 0.7 % (0-1); EOSINOPHILS % (AUTO) 0 % (0-6); HEMATOCRIT 32.8 % (35.0-45.0); LYMPHOCYTES # (AUTO) 1.3 X10'3 (1.1-4.8); LYMPHOCYTES % (AUTO) 19.8 % (21-51); MEAN CORPUSCULAR HEMOGLOBIN 29.4 PG (27.0-31.0); MEAN CORPUSCULAR HGB CONC 33.6 g/dL (33.0-36.5); MEAN CORPUSCULAR VOLUME 87.6 FL (78-98); MEAN PLATELET VOLUME 8.4 FL (7.4-10.4); MONOCYTES # (AUTO) 0.8 X10'3 (0-0.9); MONOCYTES % (AUTO) 11.7 % (2-12); NEUTROPHILS # (AUTO) 4.4 X10'3 (1.8-7.7); NEUTROPHILS % (AUTO) 67.8 % (42-75); PLATELET COUNT 147 X10'3 (140-440); RED BLOOD COUNT 3.75 X10'6 (4.20-5.60); RED CELL DISTRIBUTION WIDTH 15.7 % (11.5-14.5); WHITE BLOOD COUNT 6.5 X10'3 (4.5-11.0)
--- NOTE | 2019-01-22 06:16 | NUR ---
Patient in room PCU 3015. I have received report from John WALLACE and had the opportunity to ask questions and assume patient care.
--- NOTE | 2019-01-22 06:17 | NUR ---
Problems reprioritized. Patient report given, questions answered & plan of care reviewed with Brigitte WALLACE.
[2019-01-22 06:32] LABS: ALANINE AMINOTRANSFERASE 53 U/L (12-78); ALBUMIN 3.2 G/DL (3.4-5.0); ALBUMIN/GLOBULIN RATIO 0.9 (1.1-1.5); ALKALINE PHOSPHATASE 73 IU/L (46-116); ANION GAP 11 (8-16); ASPARTATE AMINO TRANSFERASE 22 U/L (10-37); BILIRUBIN,TOTAL 0.3 MG/DL (0.1-1.0); BLOOD UREA NITROGEN 58 MG/DL (7-18); BUN/CREATININE RATIO 33.9 (6.6-38.0); CHLORIDE 104 MMOL/L (99-107); CREATININE 1.71 MG/DL (0.40-0.90); GLUCOSE 146 MG/DL (70-104); MAGNESIUM 1.6 MG/DL (1.5-2.4); PHOSPHORUS 3.8 MG/DL (2.3-4.5); POTASSIUM 3.7 MMOL/L (3.5-5.1); SODIUM 142 MMOL/L (135-145); TOTAL CARBON DIOXIDE 26.6 MMOL/L (24-32); TOTAL PROTEIN 6.7 G/DL (6.4-8.2); eGFR 29 ML/MIN
[2019-01-22 07:00] VITALS: BP 149/50
[2019-01-22] MEDS: fludrocortisone acetate 0.1mg tablet PO SCH (07:34)
[2019-01-22] MEDS: pantoprazole 40mg Tablet.DR PO SCH (07:34)
[2019-01-22] MEDS: amiodarone 200mg tablet PO SCH (07:34)
[2019-01-22] MEDS: spironolactone 25 MG tablet PO SCH (07:34)
[2019-01-22] MEDS: lactobacillus rhamnosus 10,000 MMU CELLS/CAPSULE PO SCH (07:34)
[2019-01-22] MEDS: amLODIPine 2.5mg tablet PO SCH (07:35)
[2019-01-22] MEDS: venlafaxine XR 75mg capsule (Q24H) PO SCH (07:35)
[2019-01-22] MEDS: bumetanide 1mg tablet PO SCH (07:35)
[2019-01-22] MEDS: atorvastatin 20mg tablet PO SCH (07:35)
[2019-01-22] MEDS: apixaban 5mg tablet PO SCH (07:35)
[2019-01-22] MEDS: furosemide 20 MG/2 ML vial IV SCH (07:35)
[2019-01-22] MEDS: losartan 25mg tablet PO SCH (07:35)
[2019-01-22] MEDS: levoTHYROXINE 100mcg tablet PO SCH (07:35)
[2019-01-22 08:00] VITALS: BP_SYST 105; BP_SYST 108; BP_SYST 123; BP_DIAS 45; BP_DIAS 48
[2019-01-22] MEDS: K and/or MAG REPLACEMENT MC SCH (08:00)
[2019-01-22] MEDS: carVEDilol 3.125mg tablet PO SCH (08:00)
[2019-01-22] MEDS: insulin Lispro (HumaLOG) vial - multi-dose SQ SCH (08:44)
[2019-01-22 11:00] VITALS: BP 105/45
--- NOTE | 2019-01-22 13:02 | NUR ---
Patient's tele monitor and PIV have been removed at this time. The PIV was intact, pressure was held at the site for 5 minutes. Patient tolerated well. Patient is dressed, belongings packed, and awaiting pick and shovel man for transfer. Security has been notified regarding belongings in the safe. Security has advised that the patient stop at the front desk monitor on the way out to retrieve belongings.
--- NOTE | 2019-01-22 13:13 | NUR ---
Gael sinha at bedside. Patient discharged and transfered to [facility]
== END 2019-01-22 13:13 | DRG 690 ==
LOC: ER 09:46 → PCU 3S 13:33
PROVIDERS: ADMIT Family Medicine; ATTEND Family Medicine
DX: N39.0 Urinary tract infection, site not specified (principal); N17.9 Acute kidney failure, unspecified; I13.0 Hypertensive heart and chronic kidney disease with heart failure and stage 1 through stage 4 chronic kidney disease, or unspecified chronic kidney disease; I42.9 Cardiomyopathy, unspecified; K29.70 Gastritis, unspecified, without bleeding; I35.0 Nonrheumatic aortic (valve) stenosis; E87.5 Hyperkalemia; Z60.2 Problems related to living alone; I50.9 Heart failure, unspecified; E11.22 Type 2 diabetes mellitus with diabetic chronic kidney disease; R68.0 Hypothermia, not associated with low environmental temperature; B96.20 Unspecified Escherichia coli [E. coli] as the cause of diseases classified elsewhere; E78.5 Hyperlipidemia, unspecified; I95.1 Orthostatic hypotension; E86.0 Dehydration; E89.0 Postprocedural hypothyroidism; B96.4 Proteus (mirabilis) (morganii) as the cause of diseases classified elsewhere; F45.8 Other somatoform disorders; I25.10 Atherosclerotic heart disease of native coronary artery without angina pectoris; Z96.653 Presence of artificial knee joint, bilateral; I48.2 Chronic atrial fibrillation; N18.9 Chronic kidney disease, unspecified; Z79.01 Long term (current) use of anticoagulants; Z79.890 Hormone replacement therapy; Z79.899 Other long term (current) drug therapy; Z82.49 Family history of ischemic heart disease and other diseases of the circulatory system; Z90.710 Acquired absence of both cervix and uterus; Z95.1 Presence of aortocoronary bypass graft; Z90.49 Acquired absence of other specified parts of digestive tract
CPT/HCPCS: 36415; 71045; 74176; 80053; 81001; 82948; 83036; 83605; 83690; 83735; 83880; 84100; 84443; 84484; 85025; 85610; 85730; 87077; 87081; 87088; 87186; 93005; 96361; 96374; 96375; 97110; 97112; 97116; 97161; 97530; 99285; C9113; G0378; J0696; J1815; J1940; J2405; J7030

== ENCOUNTER 2019-03-01 13:55 | Inpatient (IN) | payer MEDICARE, OTHER ==
[~2019-03-01] VITALS: Ht 160 cm; Wt 68.2 kg
[~2019-03-01 13:55] MED LIST changes: +BUME1TAB8 PO; -FURO-149 PO; +LOSA25TA41 PO; -METF-438 PO; +METF500T20 PO; +POTA10CA44 PO; -POTA10TA36 PO
[2019-03-01 14:23] LABS: BASOPHILS % (AUTO) 0.3 % (0-1); EOSINOPHILS % (AUTO) 0 % (0-6); LYMPHOCYTES # (AUTO) 0.8 X10'3 (1.1-4.8); LYMPHOCYTES % (AUTO) 5.9 % (21-51); MEAN CORPUSCULAR HEMOGLOBIN 29.2 PG (27.0-31.0); MEAN CORPUSCULAR HGB CONC 33.2 g/dL (33.0-36.5); MEAN CORPUSCULAR VOLUME 87.9 FL (78-98); MEAN PLATELET VOLUME 7.9 FL (7.4-10.4); MONOCYTES # (AUTO) 1.4 X10'3 (0-0.9); MONOCYTES % (AUTO) 10.1 % (2-12); NEUTROPHILS # (AUTO) 11.7 X10'3 (1.8-7.7); NEUTROPHILS % (AUTO) 83.7 % (42-75); PLATELET COUNT 178 X10'3 (140-440); RED BLOOD COUNT 3.41 X10'6 (4.20-5.60); RED CELL DISTRIBUTION WIDTH 15.8 % (11.5-14.5)
[2019-03-01 14:38] LABS: ALANINE AMINOTRANSFERASE 53 U/L (12-78); ALBUMIN/GLOBULIN RATIO 0.7 (1.1-1.5); ALKALINE PHOSPHATASE 93 IU/L (46-116); ASPARTATE AMINO TRANSFERASE 26 U/L (10-37); BILIRUBIN,TOTAL 0.5 MG/DL (0.1-1.0); BLOOD UREA NITROGEN 50 MG/DL (7-18); BUN/CREATININE RATIO 38.8 (6.6-38.0); CALCIUM 9.2 MG/DL (8.5-10.1); CREATININE 1.29 MG/DL (0.40-0.90); GLUCOSE 197 MG/DL (70-104); TOTAL CARBON DIOXIDE 27.1 MMOL/L (24-32); TOTAL PROTEIN 7.3 G/DL (6.4-8.2); eGFR 40 ML/MIN
[2019-03-01] MEDS ORDERED: piperacillin/tazo 3.375gm/50ml 50 ML IV ONE (14:40)
[2019-03-01] MEDS ORDERED: vancomycin/NS 1 GM ADD-VANTAGE 250 ML IV ONE (14:50)
[2019-03-01 14:59] LABS: ANION GAP 7 (8-16); CHLORIDE 102 MMOL/L (99-107); POTASSIUM 4.8 MMOL/L (3.5-5.1); SODIUM 136 MMOL/L (135-145)
[2019-03-01] MEDS ORDERED: normal saline 1000ML IV soln IVB ONE (15:10)
[2019-03-01] MEDS ORDERED: METF500T PO (15:27)
[2019-03-01] MEDS: normal saline 1000ml 1,000 ML IV SCH ×2 (15:39→20:02)
[2019-03-01] MEDS ORDERED: magnesium 2GM in 50ml NS 50 ML IV PRN (15:40)
[2019-03-01] MEDS ORDERED: magnesium hydroxide 30ml (MOM) UD suspension PO PRN (15:40)
[2019-03-01] MEDS ORDERED: diphenhydrAMINE 50 mg/ml inj IV PRN (15:40)
[2019-03-01] MEDS ORDERED: acetaminophen 325mg tablet PO PRN ×2 (15:40)
[2019-03-01] MEDS ORDERED: diphenhydrAMINE 25mg capsule PO PRN (15:40)
[2019-03-01] MEDS ORDERED: magnesium 4gm in 100ml NS 100 ML IV PRN (15:40)
[2019-03-01] MEDS ORDERED: glucagon, human recombinant 1mg kit SUBCUT PRN (15:40)
[2019-03-01] MEDS ORDERED: ondansetron/PF 4mg/2ml inj IV PRN (15:40)
[2019-03-01] MEDS ORDERED: morphine 2 MG/ML inj. syringe IV PRN (15:40)
[2019-03-01] MEDS ORDERED: MESSAGE TO PHARMACY PO ONE (15:40)
[2019-03-01] MEDS ORDERED: dextrose 50%-water 50ml dispensing syringe IV PRN ×2 (15:40)
[2019-03-01] MEDS ORDERED: potassium CL 10mEq/100ml bag 100 ML IV PRN ×2 (15:40)
[2019-03-01] MEDS ORDERED: dextrose ORAL solution 15 GM/59 ML bottle PO PRN (15:40)
[2019-03-01] MEDS ORDERED: bisacodyl 10mg suppository rectal RC PRN (15:40)
[2019-03-01] MEDS ORDERED: mag hydrox/Alum hydrox/simeth 30ml oral suspension PO PRN (15:40)
[2019-03-01] MEDS ORDERED: potassium Cl 20 mEq SR tablet PO PRN ×2 (15:40)
[2019-03-01] MEDS: K and/or MAG REPLACEMENT MC SCH (15:40)
[2019-03-01] MEDS ORDERED: acetaminophen 650mg rectal suppository RC PRN (15:40)
[2019-03-01] MEDS ORDERED: nitroGLYCERIN 0.4mg SUBLingual tab SL PRN (15:45)
[2019-03-01] MEDS ORDERED: METF-516 PO (15:51)
[2019-03-01] MEDS: piperacillin/tazo 3.375gm/50ml 50 ML IV SCH (16:00)
--- NOTE | 2019-03-01 16:50 | NUR ---
Dom painting in ED - 03/01/19 at 1701 by NIXON Report attempted, to call back in 10 min. for report to
--- NOTE | 2019-03-01 16:50 | NUR ---
Report attempted, to call back in 10 min. and give report to
--- NOTE | 2019-03-01 17:11 | NUR ---
RECEIVED REPORT JAYESH WALLACE, IN ER
[2019-03-01 17:45] VITALS: BP 125/60
--- NOTE | 2019-03-01 17:45 | NUR ---
PT ARRIVED ON FLOOR AWAKE AND IN GURNEY
[2019-03-01] MEDS: venlafaxine XR 75mg capsule (Q24H) PO SCH (17:53)
--- NOTE | 2019-03-01 18:00 | NUR ---
Patient in room ORTHO 4007. I have received report from RODRIGO Figueroa and had the opportunity to ask questions and assume patient care.
--- NOTE | 2019-03-01 18:21 | NUR ---
gave report to car nunn
[2019-03-01 19:55] VITALS: BP 108/56
[2019-03-01] MEDS: apixaban 5mg tablet PO SCH (19:57)
[2019-03-01] MEDS: carVEDilol 3.125mg tablet PO SCH (19:57)
[2019-03-01] MEDS ORDERED: temazepam 15mg capsule PO PRN (21:00)
[2019-03-01] MEDS: insulin glargine (Lantus) pen - multi-dose SQ SCH (21:00)
[2019-03-01 22:00] VITALS: BP 99/33
[2019-03-01] MEDS: morphine 2 MG/ML inj. syringe IV PRN (22:32)
[2019-03-02] MEDS: piperacillin/tazo 3.375gm/50ml 50 ML IV SCH ×4 (00:05→23:52)
[2019-03-02 01:38] VITALS: BP 115/35
[2019-03-02 05:47] LABS: BASOPHILS % (AUTO) 0.3 % (0-1); EOSINOPHILS % (AUTO) 0.1 % (0-6); HEMATOCRIT 27.2 % (35.0-45.0); HEMOGLOBIN 9.2 g/dl (12.0-16.0); LYMPHOCYTES # (AUTO) 0.8 X10'3 (1.1-4.8); LYMPHOCYTES % (AUTO) 7.7 % (21-51); MEAN CORPUSCULAR HEMOGLOBIN 29.6 PG (27.0-31.0); MEAN CORPUSCULAR HGB CONC 33.7 g/dL (33.0-36.5); MEAN CORPUSCULAR VOLUME 87.9 FL (78-98); MONOCYTES # (AUTO) 1.2 X10'3 (0-0.9); MONOCYTES % (AUTO) 11.4 % (2-12); NEUTROPHILS # (AUTO) 8.4 X10'3 (1.8-7.7); NEUTROPHILS % (AUTO) 80.5 % (42-75); PLATELET COUNT 173 X10'3 (140-440); WHITE BLOOD COUNT 10.5 X10'3 (4.5-11.0)
[2019-03-02 06:03] LABS: ALANINE AMINOTRANSFERASE 59 U/L (12-78); ALBUMIN 2.6 G/DL (3.4-5.0); ALBUMIN/GLOBULIN RATIO 0.7 (1.1-1.5); ALKALINE PHOSPHATASE 81 IU/L (46-116); ANION GAP 10 (8-16); ASPARTATE AMINO TRANSFERASE 30 U/L (10-37); BILIRUBIN,TOTAL 0.5 MG/DL (0.1-1.0); BLOOD UREA NITROGEN 53 MG/DL (7-18); BUN/CREATININE RATIO 38.7 (6.6-38.0); CALCIUM 8.6 MG/DL (8.5-10.1); CHLORIDE 106 MMOL/L (99-107); CREATININE 1.37 MG/DL (0.40-0.90); MAGNESIUM 1.3 MG/DL (1.5-2.4); PHOSPHORUS 3.5 MG/DL (2.3-4.5); POTASSIUM 3.7 MMOL/L (3.5-5.1); SODIUM 140 MMOL/L (135-145); TOTAL CARBON DIOXIDE 24.3 MMOL/L (24-32); TOTAL PROTEIN 6.6 G/DL (6.4-8.2); eGFR 37 ML/MIN
[2019-03-02 06:10] VITALS: BP 139/52
[2019-03-02 06:18] LABS: GLUCOSE 40 MG/DL (70-104)
--- NOTE | 2019-03-02 06:44 | NUR ---
I Have received patient report Jane WALLACE
--- NOTE | 2019-03-02 06:45 | NUR ---
Problems reprioritized. Patient report given, questions answered & plan of care reviewed with RODRIGO Fry.
[2019-03-02] MEDS: dextrose ORAL solution 15 GM/59 ML bottle PO PRN (06:48)
[2019-03-02] MEDS: amLODIPine 2.5mg tablet PO SCH (07:36)
[2019-03-02] MEDS: venlafaxine XR 75mg capsule (Q24H) PO SCH ×2 (07:36→17:09)
[2019-03-02] MEDS: bumetanide 1mg tablet PO SCH (07:36)
[2019-03-02] MEDS: apixaban 5mg tablet PO SCH ×2 (07:37→20:17)
[2019-03-02] MEDS: levoTHYROXINE 100mcg tablet PO SCH (07:37)
[2019-03-02] MEDS: lactobacillus rhamnosus 10,000 MMU CELLS/CAPSULE PO SCH ×2 (07:37→20:17)
[2019-03-02] MEDS: amiodarone 200mg tablet PO SCH (07:37)
[2019-03-02] MEDS: normal saline 1000ml 1,000 ML IV SCH ×2 (07:38→21:39)
[2019-03-02] MEDS: carVEDilol 3.125mg tablet PO SCH ×2 (07:39→20:17)
[2019-03-02] MEDS: atorvastatin 20mg tablet PO SCH (08:00)
[2019-03-02] MEDS: K and/or MAG REPLACEMENT MC SCH (08:00)
[2019-03-02 10:00] VITALS: BP 124/50
[2019-03-02] MEDS: magnesium Cl slow-release 64mg tablet PO PRN ×2 (12:48→23:51)
[2019-03-02] MEDS: HYDROcodone/acetaminophen 5mg/325mg tablet PO PRN (13:01)
[2019-03-02] MEDS: morphine 2 MG/ML inj. syringe IV PRN (13:54)
[2019-03-02] MEDS: insulin Lispro (HumaLOG) vial - multi-dose SQ SCH (13:55)
[2019-03-02] MEDS: vancomycin/NS 1 GM ADD-VANTAGE 250 ML IV SCH (15:20)
[2019-03-02 17:00] VITALS: BP 116/47
[2019-03-02] MEDS: HYDROcodone/acetaminophen 10/325mg tab PO PRN (17:08)
--- NOTE | 2019-03-02 18:22 | NUR ---
Patient in room ORTHO 4007. I have received report from RODRIGO Fry and had the opportunity to ask questions and assume patient care.
--- NOTE | 2019-03-02 18:31 | NUR ---
Patient report given to Jane WALLACE
[2019-03-02 20:15] VITALS: BP 110/51
[2019-03-02] MEDS: insulin glargine (Lantus) pen - multi-dose SQ SCH (21:00)
[2019-03-02 22:00] VITALS: BP 111/36
--- NOTE | 2019-03-03 06:07 | NUR ---
Problems reprioritized. Patient report given, questions answered & plan of care reviewed with RODRIGO Fry.
[2019-03-03 06:10] VITALS: BP 108/41
[2019-03-03 06:14] LABS: BASOPHILS % (AUTO) 0.4 % (0-1); EOSINOPHILS % (AUTO) 0.1 % (0-6); HEMATOCRIT 24.2 % (35.0-45.0); HEMOGLOBIN 8.4 g/dl (12.0-16.0); LYMPHOCYTES # (AUTO) 0.8 X10'3 (1.1-4.8); LYMPHOCYTES % (AUTO) 9.9 % (21-51); MEAN CORPUSCULAR HEMOGLOBIN 30.1 PG (27.0-31.0); MEAN CORPUSCULAR HGB CONC 34.7 g/dL (33.0-36.5); MEAN CORPUSCULAR VOLUME 86.9 FL (78-98); MEAN PLATELET VOLUME 8.3 FL (7.4-10.4); MONOCYTES # (AUTO) 0.9 X10'3 (0-0.9); MONOCYTES % (AUTO) 10.7 % (2-12); NEUTROPHILS # (AUTO) 6.4 X10'3 (1.8-7.7); NEUTROPHILS % (AUTO) 78.9 % (42-75); PLATELET COUNT 157 X10'3 (140-440); RED BLOOD COUNT 2.78 X10'6 (4.20-5.60); RED CELL DISTRIBUTION WIDTH 16.2 % (11.5-14.5); WHITE BLOOD COUNT 8.1 X10'3 (4.5-11.0)
--- NOTE | 2019-03-03 06:17 | NUR ---
I have received patient report from Jane WALLACE
[2019-03-03 06:57] LABS: ALANINE AMINOTRANSFERASE 63 U/L (12-78); ALBUMIN 2.3 G/DL (3.4-5.0); ALBUMIN/GLOBULIN RATIO 0.6 (1.1-1.5); ALKALINE PHOSPHATASE 98 IU/L (46-116); ANION GAP 11 (8-16); ASPARTATE AMINO TRANSFERASE 30 U/L (10-37); BILIRUBIN,TOTAL 0.4 MG/DL (0.1-1.0); BLOOD UREA NITROGEN 53 MG/DL (7-18); BUN/CREATININE RATIO 30.6 (6.6-38.0); CALCIUM 8.1 MG/DL (8.5-10.1); CHLORIDE 103 MMOL/L (99-107); CREATININE 1.73 MG/DL (0.40-0.90); GLUCOSE 165 MG/DL (70-104); MAGNESIUM 1.4 MG/DL (1.5-2.4); PHOSPHORUS 3.2 MG/DL (2.3-4.5); POTASSIUM 4.1 MMOL/L (3.5-5.1); SODIUM 137 MMOL/L (135-145); TOTAL CARBON DIOXIDE 22.7 MMOL/L (24-32); TOTAL PROTEIN 6.1 G/DL (6.4-8.2); eGFR 28 ML/MIN
[2019-03-03] MEDS: venlafaxine XR 75mg capsule (Q24H) PO SCH ×2 (07:35→17:07)
[2019-03-03] MEDS: levoTHYROXINE 100mcg tablet PO SCH (07:35)
[2019-03-03] MEDS: lactobacillus rhamnosus 10,000 MMU CELLS/CAPSULE PO SCH ×2 (07:35→19:03)
[2019-03-03] MEDS: atorvastatin 20mg tablet PO SCH (07:35)
[2019-03-03] MEDS: bumetanide 1mg tablet PO SCH (07:35)
[2019-03-03] MEDS: carVEDilol 3.125mg tablet PO SCH ×2 (07:36→19:13)
[2019-03-03] MEDS: amiodarone 200mg tablet PO SCH (07:36)
[2019-03-03] MEDS: amLODIPine 2.5mg tablet PO SCH (07:36)
[2019-03-03] MEDS: apixaban 5mg tablet PO SCH ×2 (07:36→19:03)
[2019-03-03] MEDS: piperacillin/tazo 3.375gm/50ml 50 ML IV SCH ×3 (07:37→23:24)
[2019-03-03] MEDS: HYDROcodone/acetaminophen 10/325mg tab PO PRN (07:37)
[2019-03-03] MEDS: magnesium Cl slow-release 64mg tablet PO PRN ×2 (07:42→19:03)
[2019-03-03] MEDS: K and/or MAG REPLACEMENT MC SCH (08:00)
[2019-03-03] MEDS: insulin Lispro (HumaLOG) vial - multi-dose SQ SCH ×3 (08:35→19:01)
[2019-03-03 10:00] VITALS: BP 104/32
--- NOTE | 2019-03-03 10:07 | NUR ---
Malnutrition consult: Pt reports a wt loss of 34 lb or more with decreased appetite per malnutrition risk screen with RN. Patient's wt is stable with documented wt hx of 68.7 kg taken 12/20/18 and 68.18 kg taken 01/19/19 both using standing scales; patient's current wt is 68.18 kg. Pt eating 75-100% during both those admissions and is currently documented with 50-100% PO intake on CHO controlled diet likely meeting nutrient needs. Pt with no significant decrease in muscle strength or edema. Pt currently lacks a minimum of two criteria for malnutrition. Will continue to follow. Addendum: 03/03/19 at [address] Amended: Links added.
--- NOTE | 2019-03-03 14:00 | NUR ---
Patient report given to Pam WALLACE
[2019-03-03] MEDS: vancomycin/NS 1 GM ADD-VANTAGE 250 ML IV SCH (16:26)
[2019-03-03 17:00] VITALS: BP 127/50
--- NOTE | 2019-03-03 18:25 | NUR ---
Patient in room ORTHO 4007. I have received report from Pam WALLACE and had the opportunity to ask questions and assume patient care.
--- NOTE | 2019-03-03 18:26 | NUR ---
Problems reprioritized. Patient report given, questions answered & plan of care reviewed with RODRIGO Melton.
[2019-03-03 19:08] VITALS: BP_SYST 109; BP_SYST 115; BP_DIAS 52; BP_DIAS 59
[2019-03-03] MEDS: insulin glargine (Lantus) pen - multi-dose SQ SCH (20:59)
[2019-03-03 21:00] VITALS: BP 115/50
[2019-03-04 05:38] LABS: BASOPHILS % (AUTO) 0.6 % (0-1); EOSINOPHILS % (AUTO) 0.3 % (0-6); HEMATOCRIT 25.2 % (35.0-45.0); HEMOGLOBIN 8.5 g/dl (12.0-16.0); LYMPHOCYTES # (AUTO) 0.7 X10'3 (1.1-4.8); LYMPHOCYTES % (AUTO) 9.5 % (21-51); MEAN CORPUSCULAR HGB CONC 33.9 g/dL (33.0-36.5); MEAN CORPUSCULAR VOLUME 88.4 FL (78-98); MEAN PLATELET VOLUME 7.9 FL (7.4-10.4); MONOCYTES # (AUTO) 0.9 X10'3 (0-0.9); MONOCYTES % (AUTO) 11.9 % (2-12); NEUTROPHILS # (AUTO) 6.1 X10'3 (1.8-7.7); NEUTROPHILS % (AUTO) 77.7 % (42-75); PLATELET COUNT 166 X10'3 (140-440); RED BLOOD COUNT 2.85 X10'6 (4.20-5.60); RED CELL DISTRIBUTION WIDTH 15.9 % (11.5-14.5); WHITE BLOOD COUNT 7.8 X10'3 (4.5-11.0)
[2019-03-04 06:00] VITALS: BP 148/54
--- NOTE | 2019-03-04 06:05 | NUR ---
received report from RODRIGO Melton
[2019-03-04 06:10] LABS: ALANINE AMINOTRANSFERASE 82 U/L (12-78); ALBUMIN 2.3 G/DL (3.4-5.0); ALBUMIN/GLOBULIN RATIO 0.6 (1.1-1.5); ALKALINE PHOSPHATASE 149 IU/L (46-116); ANION GAP 10 (8-16); ASPARTATE AMINO TRANSFERASE 51 U/L (10-37); BILIRUBIN,TOTAL 0.4 MG/DL (0.1-1.0); BLOOD UREA NITROGEN 61 MG/DL (7-18); BUN/CREATININE RATIO 32.4 (6.6-38.0); CALCIUM 8.5 MG/DL (8.5-10.1); CHLORIDE 101 MMOL/L (99-107); CREATININE 1.88 MG/DL (0.40-0.90); GLUCOSE 58 MG/DL (70-104); MAGNESIUM 1.8 MG/DL (1.5-2.4); PHOSPHORUS 3.8 MG/DL (2.3-4.5); SODIUM 133 MMOL/L (135-145); TOTAL CARBON DIOXIDE 21.8 MMOL/L (24-32); TOTAL PROTEIN 6.3 G/DL (6.4-8.2); eGFR 26 ML/MIN
--- NOTE | 2019-03-04 06:16 | NUR ---
Problems reprioritized. Patient report given, questions answered & plan of care reviewed with Carolina WALLACE and Shruthi ESQUIVEL.
--- NOTE | 2019-03-04 06:43 | NUR ---
per wound care orders, nursing staff is not changing patient's right foot wound. Therefore, nursing staff is unable to take Tuesday photos at this time. Nursing staff will wait for wound care to take weekly photo.
[2019-03-04] MEDS: K and/or MAG REPLACEMENT MC SCH (07:07)
[2019-03-04] MEDS: levoTHYROXINE 100mcg tablet PO SCH (07:16)
[2019-03-04] MEDS: lactobacillus rhamnosus 10,000 MMU CELLS/CAPSULE PO SCH (07:17)
[2019-03-04] MEDS: venlafaxine XR 75mg capsule (Q24H) PO SCH (07:19)
[2019-03-04] MEDS: carVEDilol 3.125mg tablet PO SCH (07:21)
[2019-03-04] MEDS: atorvastatin 20mg tablet PO SCH (07:21)
[2019-03-04] MEDS: amiodarone 200mg tablet PO SCH (07:22)
[2019-03-04] MEDS: bumetanide 1mg tablet PO SCH (07:22)
[2019-03-04] MEDS: amLODIPine 2.5mg tablet PO SCH (07:24)
[2019-03-04] MEDS: HYDROcodone/acetaminophen 5mg/325mg tablet PO PRN (07:24)
[2019-03-04] MEDS: apixaban 5mg tablet PO SCH (07:25)
[2019-03-04] MEDS: piperacillin/tazo 3.375gm/50ml 50 ML IV SCH (07:26)
[2019-03-04] MEDS: dextrose ORAL solution 15 GM/59 ML bottle PO PRN (07:45)
[2019-03-04] MEDS: insulin Lispro (HumaLOG) vial - multi-dose SQ SCH ×2 (08:56→13:38)
[2019-03-04 10:00] VITALS: BP 126/45
--- NOTE | 2019-03-04 12:46 | NUR ---
GAVE REPORT TO RODRIGO GOLDEN AT [facility]
--- NOTE | 2019-03-04 15:24 | NUR ---
PT DC WITH ALL BELONGINGS IN WHEELCHAIR ACCOMPANIED BY [facility] PERSON[facility] TO GO TO [facility].
[2019-03-04] MEDS ORDERED: VANCOMYCIN LEVEL IV ONE (15:30)
[2019-03-04] MEDS ORDERED: linezolid 600mg tablet PO SCH (20:00)
== END 2019-03-04 15:15 | DRG 935 ==
LOC: ER 13:56 → ED HOLD 15:39 → ORTHO 4S 17:30
PROVIDERS: ADMIT Family Medicine; ATTEND Family Medicine
DX: T25.221A Burn of second degree of right foot, initial encounter (principal); I50.22 Chronic systolic (congestive) heart failure; I13.0 Hypertensive heart and chronic kidney disease with heart failure and stage 1 through stage 4 chronic kidney disease, or unspecified chronic kidney disease; L03.115 Cellulitis of right lower limb; I48.20 Chronic atrial fibrillation, unspecified; I95.1 Orthostatic hypotension; I25.10 Atherosclerotic heart disease of native coronary artery without angina pectoris; E03.9 Hypothyroidism, unspecified; E11.22 Type 2 diabetes mellitus with diabetic chronic kidney disease; Z96.653 Presence of artificial knee joint, bilateral; X11.8XXA Contact with other hot tap-water, initial encounter; E78.5 Hyperlipidemia, unspecified; G90.9 Disorder of the autonomic nervous system, unspecified; I34.2 Nonrheumatic mitral (valve) stenosis; E86.0 Dehydration; N18.3 Chronic kidney disease, stage 3 (moderate); Z66 Do not resuscitate; Z79.01 Long term (current) use of anticoagulants; Z79.890 Hormone replacement therapy; Z81.1 Family history of alcohol abuse and dependence; Z82.3 Family history of stroke; Z82.49 Family history of ischemic heart disease and other diseases of the circulatory system; Z90.710 Acquired absence of both cervix and uterus; Z95.1 Presence of aortocoronary bypass graft; Y93.89 Activity, other specified; Y92.89 Other specified places as the place of occurrence of the external cause; Y99.8 Other external cause status; Z95.5 Presence of coronary angioplasty implant and graft; Z90.49 Acquired absence of other specified parts of digestive tract
CPT/HCPCS: 36415; 80053; 82948; 83735; 84100; 84145; 85025; 87081; 97110; 97161; 97530; 99285; G0378; J1815; J2270; J2405; J2543; J3370; J7030

== ENCOUNTER 2019-03-18 17:10 | Inpatient (IN) | payer MEDICARE, OTHER ==
[~2019-03-18] VITALS: Ht 160 cm; Wt 65.8 kg
[~2019-03-18 17:10] MED LIST changes: -LOSA25TA41 PO; +METF-516 PO; -METF500T20 PO; -POTA10CA44 PO
[2019-03-18 18:12] LABS: BASOPHILS % (AUTO) 0.6 % (0-1); EOSINOPHILS % (AUTO) 0.6 % (0-6); HEMATOCRIT 26.7 % (35.0-45.0); HEMOGLOBIN 8.9 g/dl (12.0-16.0); LYMPHOCYTES # (AUTO) 0.9 X10'3 (1.1-4.8); LYMPHOCYTES % (AUTO) 12.6 % (21-51); MEAN CORPUSCULAR HEMOGLOBIN 29.1 PG (27.0-31.0); MEAN CORPUSCULAR HGB CONC 33.3 g/dL (33.0-36.5); MEAN CORPUSCULAR VOLUME 87.5 FL (78-98); MEAN PLATELET VOLUME 7.2 FL (7.4-10.4); MONOCYTES # (AUTO) 0.7 X10'3 (0-0.9); MONOCYTES % (AUTO) 10.2 % (2-12); NEUTROPHILS # (AUTO) 5.3 X10'3 (1.8-7.7); PLATELET COUNT 158 X10'3 (140-440); RED BLOOD COUNT 3.05 X10'6 (4.20-5.60); RED CELL DISTRIBUTION WIDTH 16.3 % (11.5-14.5)
[2019-03-18 18:20] LABS: PARTIAL THROMBOPLASTIN TIME 42 SECONDS (22-32)
[2019-03-18 18:29] LABS: ALANINE AMINOTRANSFERASE 27 U/L (12-78); ALBUMIN 2.8 G/DL (3.4-5.0); ALBUMIN/GLOBULIN RATIO 0.7 (1.1-1.5); ALKALINE PHOSPHATASE 135 IU/L (46-116); ANION GAP 6 (8-16); ASPARTATE AMINO TRANSFERASE 18 U/L (10-37); BILIRUBIN,TOTAL 0.3 MG/DL (0.1-1.0); BLOOD UREA NITROGEN 43 MG/DL (7-18); BUN/CREATININE RATIO 31.2 (6.6-38.0); CALCIUM 8.7 MG/DL (8.5-10.1); CHLORIDE 106 MMOL/L (99-107); CREATININE 1.38 MG/DL (0.40-0.90); GLUCOSE 111 MG/DL (70-104); POTASSIUM 4.8 MMOL/L (3.5-5.1); SODIUM 139 MMOL/L (135-145); TOTAL CARBON DIOXIDE 26.6 MMOL/L (24-32); TOTAL PROTEIN 7.1 G/DL (6.4-8.2); eGFR 37 ML/MIN
--- NOTE | 2019-03-18 18:34 | NUR ---
TO CT SCAN
[2019-03-18 18:40] LABS: CLARITY,URINE CLEAR (Clear); COLOR,URINE YELLOW (Yellow); GLUCOSE, URINE NEGATIVE (Neg); KETONES,URINE NEGATIVE (Neg); LEUKOCYTE ESTERASE ,URINE NEGATIVE (Neg); NITRITES, URINE NEGATIVE (Neg); OCCULT BLOOD,URINE NEGATIVE (Neg); PH,URINE 5.5 (4.8-8.0); PROTEIN,URINE NEGATIVE (Neg); UROBILINOGEN,URINE 0.2 E.U/dL (0.2-1.0)
[2019-03-18 18:43] LABS: UA COLLECTION TYPE STRAIGHT CATH
[2019-03-18 18:46] LABS: MAGNESIUM 1.6 MG/DL (1.5-2.4)
[2019-03-18 18:47] LABS: ETHANOL < 0.010 GM/DL (0.0-0.010)
[2019-03-18 18:48] LABS: URINE AMPHETAMINE SCREEN NEGATIVE (Neg); URINE BARBITUATE SCREEN NEGATIVE (Neg); URINE BENZODIAZEPINES SCREEN NEGATIVE (Neg); URINE CANNABINOID SCREEN NEGATIVE (Neg); URINE COCAINE SCREEN NEGATIVE (Neg); URINE METHADONE SCREEN NEGATIVE (Neg); URINE OPIATE SCREEN NEGATIVE (Neg); URINE PHENCYCLIDINE SCREEN NEGATIVE (Neg)
[2019-03-18] MEDS ORDERED: LEVO25TA2 PO (19:11)
[2019-03-18] MEDS ORDERED: LIDOCAINE GEL 2% TOP (19:17)
[2019-03-18] MEDS ORDERED: ATOR40TA PO (19:17)
[2019-03-18] MEDS ORDERED: SILV20CR13 TOP (19:17)
[2019-03-18] MEDS ORDERED: RIVA20TA PO (19:19)
[2019-03-18] MEDS ORDERED: CARV3.12 PO (19:23)
[2019-03-18] MEDS ORDERED: HYDR-4353 PO (19:23)
[2019-03-18] MEDS ORDERED: HYDR-4383 PO (19:23)
[2019-03-18] MEDS ORDERED: LACT1CAP65 PO (19:26)
[2019-03-18] MEDS ORDERED: MAGN400O6 PO (19:32)
[2019-03-18] MEDS ORDERED: BISA10SU60 RC (19:32)
--- NOTE | 2019-03-18 20:43 | NUR ---
PATIENT UP FOR DISCHARGE. DISCUSSED PATIENT'S BNP OF OVER 30,[address] RESENDIZ PATIENT IS NOW UP FOR ADMISSION
--- NOTE | 2019-03-18 20:44 | NUR ---
NO ORDERS FOR DIURETICS RECEIVED FROM DR RESENDIZ
[2019-03-18] MEDS ORDERED: nitroGLYCERIN 0.4mg SUBLingual tab SL PRN (21:05)
[2019-03-18] MEDS ORDERED: acetaminophen 325mg tablet PO PRN (21:05)
[2019-03-18] MEDS ORDERED: HYDROcodone/acetaminophen 5mg/325mg tablet PO PRN ×2 (21:05)
[2019-03-18] MEDS ORDERED: bisacodyl 10mg suppository rectal RC SCH (21:05)
[2019-03-18] MEDS ORDERED: ondansetron/PF 4mg/2ml inj IV PRN (21:05)
[2019-03-18] MEDS ORDERED: morphine 2 MG/ML inj. syringe IV PRN ×2 (21:05)
[2019-03-18] MEDS ORDERED: dextrose ORAL solution 15 GM/59 ML bottle PO PRN (21:05)
[2019-03-18] MEDS ORDERED: magnesium hydroxide 30ml (MOM) UD suspension PO PRN (21:05)
[2019-03-18] MEDS ORDERED: insulin Lispro (HumaLOG) vial - multi-dose SQ SCH (21:05)
[2019-03-18] MEDS ORDERED: glucagon, human recombinant 1mg kit SUBCUT PRN (21:05)
[2019-03-18] MEDS ORDERED: dextrose 50%-water 50ml dispensing syringe IV PRN ×2 (21:05)
[2019-03-18] MEDS ORDERED: HYDROcodone/acetaminophen 10/325mg tab PO PRN (21:05)
[2019-03-18] MEDS ORDERED: mag hydrox/Alum hydrox/simeth 30ml oral suspension PO PRN (21:05)
[2019-03-18] MEDS ORDERED: MESSAGE TO PHARMACY PO ONE (21:05)
--- NOTE | 2019-03-18 21:40 | NUR ---
PHONE REPORT TO RODRIGO SANABRIA PATIENT GOING IN [facility] TO ROOM 4010A WITH RN ON MONITOR. I CALLED REPORT FOR PRIMARY RN NEIL: MED REC DONE; BELONGING LIST NOT DONE: NEIL IS AWARE
[2019-03-18 22:15] VITALS: BP 113/75
--- NOTE | 2019-03-18 22:15 | NUR ---
RECEIVED PATIENT FROM ER VIA [facility] IN STABLE CONDITION TO ROOM 4010A
[2019-03-18] MEDS: dextrose ORAL solution 15 GM/59 ML bottle PO PRN (22:38)
--- NOTE | 2019-03-18 23:14 | NUR ---
PATIENT HAS PLOST STATING SHE IS A DNR. PATIENT IS ORDERED A FULL CODE HERE. ADDRESSED THIS WITH DR. SERVIN IN PERSON. STATES PATIENT TOLD HIM SHE WISHES TO BE A FULL CODE.
[2019-03-18] MEDS ORDERED: XYL25J MM (23:29)
[2019-03-19 06:00] VITALS: BP 136/72
[2019-03-19 06:13] LABS: BASOPHILS % (AUTO) 0.5 % (0-1); EOSINOPHILS # (AUTO) 0.1 X10'3 (0-0.9); EOSINOPHILS % (AUTO) 1.1 % (0-6); HEMATOCRIT 24.2 % (35.0-45.0); HEMOGLOBIN 8.1 g/dl (12.0-16.0); LYMPHOCYTES # (AUTO) 1.2 X10'3 (1.1-4.8); MEAN CORPUSCULAR HEMOGLOBIN 29.2 PG (27.0-31.0); MEAN CORPUSCULAR HGB CONC 33.5 g/dL (33.0-36.5); MEAN CORPUSCULAR VOLUME 87.1 FL (78-98); MEAN PLATELET VOLUME 7.4 FL (7.4-10.4); MONOCYTES # (AUTO) 1.1 X10'3 (0-0.9); MONOCYTES % (AUTO) 13.2 % (2-12); NEUTROPHILS # (AUTO) 5.6 X10'3 (1.8-7.7); NEUTROPHILS % (AUTO) 70.2 % (42-75); PLATELET COUNT 151 X10'3 (140-440); RED BLOOD COUNT 2.78 X10'6 (4.20-5.60); RED CELL DISTRIBUTION WIDTH 16.4 % (11.5-14.5)
--- NOTE | 2019-03-19 06:18 | NUR ---
REPORT GIVEN TO DOMINIQUE WALLACE
[2019-03-19 06:28] LABS: ALBUMIN 2.6 G/DL (3.4-5.0); ANION GAP 8 (8-16); BLOOD UREA NITROGEN 40 MG/DL (7-18); BUN/CREATININE RATIO 32.5 (6.6-38.0); CALCIUM 8.4 MG/DL (8.5-10.1); CHLORIDE 106 MMOL/L (99-107); CREATININE 1.23 MG/DL (0.40-0.90); GLUCOSE 78 MG/DL (70-104); POTASSIUM 4.2 MMOL/L (3.5-5.1); SODIUM 139 MMOL/L (135-145); TOTAL CARBON DIOXIDE 24.9 MMOL/L (24-32); eGFR 42 ML/MIN
--- NOTE | 2019-03-19 06:34 | NUR ---
RECEIVED REPORT FROM ELLY WALLACE
[2019-03-19 07:33] VITALS: BP 147/57
[2019-03-19] MEDS: dextrose ORAL solution 15 GM/59 ML bottle PO PRN (07:35)
[2019-03-19] MEDS: carVEDilol 3.125mg tablet PO SCH ×2 (07:40→20:15)
[2019-03-19] MEDS: sacubitril/valsartan 24mg-26mg tablet PO SCH ×2 (07:41→20:14)
[2019-03-19] MEDS: LIDOcaine 2% 5ml jelly TOP SCH ×2 (08:00→20:00)
[2019-03-19] MEDS: levoTHYROXINE 100mcg tablet PO SCH (08:13)
[2019-03-19] MEDS: lactobacillus rhamnosus 10,000 MMU CELLS/CAPSULE PO SCH ×2 (08:13→20:15)
[2019-03-19] MEDS: spironolactone 25 MG tablet PO SCH (08:14)
[2019-03-19] MEDS: amLODIPine 2.5mg tablet PO SCH (08:14)
[2019-03-19] MEDS: amiodarone 200mg tablet PO SCH (08:14)
[2019-03-19] MEDS: rivaroxaban 20mg tablet PO SCH (08:14)
[2019-03-19] MEDS: venlafaxine XR 75mg capsule (Q24H) PO SCH ×2 (08:15→17:46)
[2019-03-19] MEDS: furosemide 40mg/4ml inj IV SCH ×2 (08:28→20:15)
[2019-03-19] MEDS ORDERED: potassium CL 10mEq/100ml bag 100 ML IV PRN (09:00)
[2019-03-19] MEDS ORDERED: magnesium Cl slow-release 64mg tablet PO PRN (09:00)
[2019-03-19] MEDS ORDERED: potassium Cl 20 mEq SR tablet PO PRN ×2 (09:00)
[2019-03-19] MEDS ORDERED: magnesium 4gm in 100ml NS 100 ML IV PRN (09:00)
[2019-03-19 09:53] VITALS: BP 140/42
[2019-03-19 10:34] LABS: OCCULT BLOOD STOOL NEGATIVE (Neg)
[2019-03-19 11:15] LABS: C DIFF ANTIGEN NEGATIVE (NEGATIVE); C DIFF SPECIMEN=DIARRHEA? ACCEPTABLE; C DIFFICILE TOXINS A&B NEGATIVE (Neg)
--- NOTE | 2019-03-19 11:22 | NUR ---
Student Medication Administration: For this medication-pass time frame 4297-9318, all medications were reviewed,administered and documented per hospital policy by José Miguel Bernstein. Student documentation:I have reviewed and agree with all interventions, assessments performed and documented by José Miguel Bernstein.
--- NOTE | 2019-03-19 11:56 | NUR ---
DM Consult: A1C 7.3. Pt admit w/ ALOC and diarrhea; Hgb dropped stool occult pending at this time. Pt currently not appropriate for DM ed at this time. Will monitor for mentation and DM ed once appropriate prior to d/c. Addendum: 03/19/19 at [address] Amended: Links added.
[2019-03-19] MEDS ORDERED: silver sulfadiazine cream 400gm jar TP SCH (14:05)
[2019-03-19] MEDS ORDERED: silver sulfadiazine cream 50gm TP SCH (14:22)
--- NOTE | 2019-03-19 14:32 | NUR ---
RECEIVED OR REPORT FROM JOEY WALLACE Addendum: 03/19/19 at 1435 by Ana Luisa Bates RN WRONG PATIENT
[2019-03-19 18:00] VITALS: BP 140/43
--- NOTE | 2019-03-19 18:12 | NUR ---
GAVE REPORT TO ELLY WALLACE
--- NOTE | 2019-03-19 18:42 | NUR ---
RECEIVED REPORT FROM DOMINIQUE WALLACE AND ASSUMED PATIENT CARE
[2019-03-19] MEDS ORDERED: insulin glargine (Lantus) pen - multi-dose SQ SCH (21:00)
[2019-03-19] MEDS ORDERED: atorvastatin 20mg tablet PO SCH (21:00)
[2019-03-19 22:00] VITALS: BP 159/58
[2019-03-20 06:00] VITALS: BP 127/46
[2019-03-20 06:02] LABS: BASOPHILS # (AUTO) 0.1 X10'3 (0-0.2); BASOPHILS % (AUTO) 0.8 % (0-1); EOSINOPHILS # (AUTO) 0.1 X10'3 (0-0.9); HEMOGLOBIN 8.5 g/dl (12.0-16.0); LYMPHOCYTES # (AUTO) 1.3 X10'3 (1.1-4.8); LYMPHOCYTES % (AUTO) 13.8 % (21-51); MEAN CORPUSCULAR HEMOGLOBIN 29.4 PG (27.0-31.0); MEAN CORPUSCULAR VOLUME 86.5 FL (78-98); MEAN PLATELET VOLUME 7.5 FL (7.4-10.4); MONOCYTES # (AUTO) 1.6 X10'3 (0-0.9); NEUTROPHILS # (AUTO) 6.4 X10'3 (1.8-7.7); NEUTROPHILS % (AUTO) 67.4 % (42-75); PLATELET COUNT 166 X10'3 (140-440); RED BLOOD COUNT 2.89 X10'6 (4.20-5.60); RED CELL DISTRIBUTION WIDTH 16.5 % (11.5-14.5); WHITE BLOOD COUNT 9.5 X10'3 (4.5-11.0)
--- NOTE | 2019-03-20 06:11 | NUR ---
REPORT GIVEN TO VANESSA WALLACE
[2019-03-20 06:17] LABS: ALBUMIN 2.8 G/DL (3.4-5.0); ANION GAP 8 (8-16); BLOOD UREA NITROGEN 32 MG/DL (7-18); BUN/CREATININE RATIO 25.2 (6.6-38.0); CALCIUM 8.7 MG/DL (8.5-10.1); CHLORIDE 105 MMOL/L (99-107); CREATININE 1.27 MG/DL (0.40-0.90); GLUCOSE 64 MG/DL (70-104); MAGNESIUM 1.4 MG/DL (1.5-2.4); PHOSPHORUS 2.5 MG/DL (2.3-4.5); POTASSIUM 3.6 MMOL/L (3.5-5.1); SODIUM 141 MMOL/L (135-145); TOTAL CARBON DIOXIDE 28.5 MMOL/L (24-32); eGFR 41 ML/MIN
[2019-03-20 06:30] LABS: ANISOCYTOSIS 1+; PLATELET ESTIMATE NORMAL; TOTAL CELLS COUNTED 100
--- NOTE | 2019-03-20 06:39 | NUR ---
Report received from RODRIGO Dorantes.
--- NOTE | 2019-03-20 07:20 | NUR ---
PATIENT REFUSING ANY GLUCOSE OR FOOD, STATES SHE WILL EAT BREAKFAST AND BE FINE. ADVISED THAT IS NOT A GOOD IDEA BUT IS FIRM IN HER DECISION.
[2019-03-20 07:53] VITALS: BP 151/63
[2019-03-20] MEDS: carVEDilol 3.125mg tablet PO SCH (08:00)
[2019-03-20] MEDS: sacubitril/valsartan 24mg-26mg tablet PO SCH (08:00)
[2019-03-20] MEDS: LIDOcaine 2% 5ml jelly TOP SCH (08:00)
[2019-03-20] MEDS: venlafaxine XR 75mg capsule (Q24H) PO SCH (08:26)
[2019-03-20] MEDS: levoTHYROXINE 100mcg tablet PO SCH (08:27)
[2019-03-20] MEDS: lactobacillus rhamnosus 10,000 MMU CELLS/CAPSULE PO SCH (08:28)
[2019-03-20] MEDS: amLODIPine 2.5mg tablet PO SCH (08:32)
[2019-03-20] MEDS: amiodarone 200mg tablet PO SCH (08:32)
[2019-03-20] MEDS: rivaroxaban 20mg tablet PO SCH (08:34)
[2019-03-20] MEDS: spironolactone 25 MG tablet PO SCH (08:35)
[2019-03-20] MEDS: furosemide 40mg/4ml inj IV SCH (09:23)
[2019-03-20 10:15] VITALS: BP 140/49
--- NOTE | 2019-03-20 11:27 | NUR ---
F/u: Pt seen by [facility] for written/verbal DM ed w/ [facility] contact information and CDE course information provided. Addendum: 03/20/19 at [address] Amended: Links added.
--- NOTE | 2019-03-20 12:11 | NUR ---
Student Medication Administration:For this medication-pass time frame 0516-3304, all medications were reviewed,administered and documented per hospital policy by Niki Anand. Student documentation:I have reviewed and agree with all interventions, assessments performed and documented by Niki Anand.
== END 2019-03-20 14:45 | DRG 291 ==
LOC: ER 17:10 → ED HOLD 21:39 → ORTHO 4S 22:15
PROVIDERS: ADMIT Internal Medicine; ATTEND Family Medicine
DX: I13.0 Hypertensive heart and chronic kidney disease with heart failure and stage 1 through stage 4 chronic kidney disease, or unspecified chronic kidney disease (principal); I50.23 Acute on chronic systolic (congestive) heart failure; L03.119 Cellulitis of unspecified part of limb; I48.0 Paroxysmal atrial fibrillation; E03.9 Hypothyroidism, unspecified; E11.22 Type 2 diabetes mellitus with diabetic chronic kidney disease; E78.5 Hyperlipidemia, unspecified; D64.9 Anemia, unspecified; Z96.653 Presence of artificial knee joint, bilateral; F32.9 Major depressive disorder, single episode, unspecified; R19.7 Diarrhea, unspecified; I25.10 Atherosclerotic heart disease of native coronary artery without angina pectoris; N18.3 Chronic kidney disease, stage 3 (moderate); Z79.01 Long term (current) use of anticoagulants; Z86.73 Personal history of transient ischemic attack (TIA), and cerebral infarction without residual deficits; Z95.1 Presence of aortocoronary bypass graft; Z90.49 Acquired absence of other specified parts of digestive tract; Z95.5 Presence of coronary angioplasty implant and graft
CPT/HCPCS: 36415; 70450; 71045; 80048; 80053; 80305; 80320; 81003; 82272; 82948; 83036; 83735; 83880; 84100; 84443; 84484; 85025; 85610; 85730; 87081; 87324; 87449; 93005; 97110; 97116; 97162; 99285; G0378; J1815; J1940

== ENCOUNTER 2019-03-24 08:13 | Inpatient (IN) | payer MEDICARE, OTHER ==
[~2019-03-24] VITALS: Ht 172.7 cm; Wt 73.1 kg
[~2019-03-24 08:13] MED LIST changes: -APIX5TAB3 PO; +ATOR40TA PO; +BISA10SU60 RC; +CARV3.12 PO; -CARV3.122 PO; +HYDR-4353 PO; +HYDR-4383 PO; +LACT1CAP65 PO; +MAGN400O6 PO; +RIVA20TA PO; -ROSU40TA22; +SILV20CR13 TOP; +XYL25J MM
[2019-03-24 08:45] LABS: BASOPHILS % (AUTO) 0.3 % (0-1); EOSINOPHILS % (AUTO) 0.1 % (0-6); HEMATOCRIT 26.5 % (35.0-45.0); HEMOGLOBIN 8.9 g/dl (12.0-16.0); LYMPHOCYTES # (AUTO) 0.9 X10'3 (1.1-4.8); MEAN CORPUSCULAR HEMOGLOBIN 29.1 PG (27.0-31.0); MEAN CORPUSCULAR HGB CONC 33.5 g/dL (33.0-36.5); MEAN CORPUSCULAR VOLUME 86.8 FL (78-98); MEAN PLATELET VOLUME 7.2 FL (7.4-10.4); MONOCYTES # (AUTO) 1.1 X10'3 (0-0.9); MONOCYTES % (AUTO) 12.7 % (2-12); NEUTROPHILS # (AUTO) 6.3 X10'3 (1.8-7.7); NEUTROPHILS % (AUTO) 75.9 % (42-75); PLATELET COUNT 227 X10'3 (140-440); RED BLOOD COUNT 3.05 X10'6 (4.20-5.60); RED CELL DISTRIBUTION WIDTH 16.9 % (11.5-14.5); WHITE BLOOD COUNT 8.4 X10'3 (4.5-11.0)
[2019-03-24 08:50] LABS: PARTIAL THROMBOPLASTIN TIME 28 SECONDS (22-32)
[2019-03-24 08:52] LABS: ALANINE AMINOTRANSFERASE 41 U/L (12-78); ALBUMIN 3.1 G/DL (3.4-5.0); ALBUMIN/GLOBULIN RATIO 0.9 (1.1-1.5); ALKALINE PHOSPHATASE 117 IU/L (46-116); ANION GAP 14 (8-16); ASPARTATE AMINO TRANSFERASE 27 U/L (10-37); BILIRUBIN,TOTAL 0.4 MG/DL (0.1-1.0); BLOOD UREA NITROGEN 60 MG/DL (7-18); BUN/CREATININE RATIO 31.6 (6.6-38.0); CALCIUM 8.6 MG/DL (8.5-10.1); CHLORIDE 104 MMOL/L (99-107); GLUCOSE 203 MG/DL (70-104); POTASSIUM 5.1 MMOL/L (3.5-5.1); SODIUM 142 MMOL/L (135-145); TOTAL CARBON DIOXIDE 24.4 MMOL/L (24-32); TOTAL PROTEIN 6.7 G/DL (6.4-8.2); eGFR 26 ML/MIN
[2019-03-24 09:01] LABS: ETHANOL < 0.010 GM/DL (0.0-0.010)
[2019-03-24 09:05] LABS: ABG BASE EXCESS -0.8 mmol/L (-2.0-3.0); ABG OXYGEN SATURATION 98.7 % (95-98); ABG PCO2 (T) 40.2 mmHg (35.0-45.0); ABG PH (T) 7.394 (7.350-7.450); ABG PO2 (T) 231.1 mmHg (83-108); FCOHb 0.5 % (0.5-1.5); FLOW 6 L/min; FMetHb 0.3 % (0.3-1.12); FO2Hb 97.9 % (94-100); TOTAL HEMOGLOBIN 9.5 G/dl (12.0-16.0)
--- NOTE | 2019-03-24 09:36 | NUR ---
found obtunded by nursing staff at shelter during rounds. Last known well per notes was 0400. Currently pt is twitching, keeps head toward the left, drools, does squeeze and oracle wms consultant to command strongly and equally, non verbal. Does not lift any extremities. Moves all extremities. Pupils are equal but non reactive. CM displays BBB and NSR currently, H/O afib. On mask for low sats at scene, however, ABG on 8L shows sat of 98%. Normal PCO2. VSS, pt is afebrile. Makes attempts to open eyes and has opened them briefly x2 to my command. Did state first name. [address] Cabral completed.
--- NOTE | 2019-03-24 09:44 | NUR ---
Cannot complete NIH due to ALOC.
[2019-03-24] MEDS ORDERED: potassium Cl 20 mEq SR tablet PO PRN ×2 (10:10)
[2019-03-24] MEDS ORDERED: HYDROcodone/acetaminophen 5mg/325mg tablet PO PRN (10:10)
[2019-03-24] MEDS ORDERED: magnesium Cl slow-release 64mg tablet PO PRN (10:10)
[2019-03-24] MEDS ORDERED: bisacodyl 10mg suppository rectal RC PRN (10:10)
[2019-03-24] MEDS ORDERED: magnesium 2GM in 50ml NS 50 ML IV PRN (10:10)
[2019-03-24] MEDS ORDERED: magnesium hydroxide 30ml (MOM) UD suspension PO PRN (10:10)
[2019-03-24] MEDS ORDERED: ipratropium/albuterol 3ml nebule NEB PRN (10:10)
[2019-03-24] MEDS ORDERED: acetaminophen 650mg rectal suppository RC PRN (10:10)
[2019-03-24] MEDS ORDERED: HYDROcodone/acetaminophen 10/325mg tab PO PRN (10:10)
[2019-03-24] MEDS ORDERED: mag hydrox/Alum hydrox/simeth 30ml oral suspension PO PRN (10:10)
[2019-03-24] MEDS ORDERED: ondansetron/PF 4mg/2ml inj IV PRN (10:10)
[2019-03-24] MEDS ORDERED: acetaminophen 325mg tablet PO PRN ×2 (10:10)
[2019-03-24] MEDS ORDERED: metoclopramide 5 mg/ml inj IV PRN (10:10)
[2019-03-24] MEDS ORDERED: magnesium 4gm in 100ml NS 100 ML IV PRN (10:10)
[2019-03-24] MEDS ORDERED: potassium CL 10mEq/100ml bag 100 ML IV PRN ×2 (10:10)
--- NOTE | 2019-03-24 10:11 | NUR ---
0900 Unable to determine visual status as pt does not open eyes except on rare requests. Remains non verbal. Will squeeze both hands rather vigorously to command. Grimaces and withdraws to painful stimuli more so upper extremities. Does not localize to pain, however.
[2019-03-24] MEDS ORDERED: dextrose 50%-water 50ml dispensing syringe IV PRN ×2 (10:20)
[2019-03-24] MEDS ORDERED: dextrose ORAL solution 15 GM/59 ML bottle PO PRN ×2 (10:20)
[2019-03-24] MEDS ORDERED: glucagon, human recombinant 1mg kit SUBCUT PRN (10:20)
[2019-03-24] MEDS ORDERED: MESSAGE TO PHARMACY PO ONE (10:20)
[2019-03-24 10:46] LABS: CLARITY,URINE CLEAR (Clear); COLOR,URINE YELLOW (Yellow); GLUCOSE, URINE NEGATIVE (Neg); KETONES,URINE TRACE mg/dl (Neg); LEUKOCYTE ESTERASE ,URINE NEGATIVE (Neg); NITRITES, URINE NEGATIVE (Neg); OCCULT BLOOD,URINE NEGATIVE (Neg); PROTEIN,URINE NEGATIVE (Neg); UROBILINOGEN,URINE 0.2 E.U/dL (0.2-1.0)
[2019-03-24 10:47] LABS: UA COLLECTION TYPE STRAIGHT CATH
[2019-03-24 10:51] LABS: URINE AMPHETAMINE SCREEN NEGATIVE (Neg); URINE BARBITUATE SCREEN NEGATIVE (Neg); URINE BENZODIAZEPINES SCREEN NEGATIVE (Neg); URINE CANNABINOID SCREEN NEGATIVE (Neg); URINE COCAINE SCREEN NEGATIVE (Neg); URINE METHADONE SCREEN NEGATIVE (Neg); URINE OPIATE SCREEN NEGATIVE (Neg); URINE PHENCYCLIDINE SCREEN NEGATIVE (Neg)
[2019-03-24] MEDS ORDERED: ipratropium/albuterol 3ml nebule NEB SCH (11:00)
--- NOTE | 2019-03-24 11:45 | NUR ---
Patient arrived on unit, vitals signs showed SPO2 100% on 8L so turned O2 down to 6Lpm, patient desatted to 70%, turned O2 back up, patient was not recovering, noted patient was twitching and not breathing adequately. Attempted to arouse patient with verbal and physical stimuli, patient opened eyes, took some breaths, followed commands but eyes were bouncing up and down and not focusing on the nurse, patient did turn head to track though. Her SPO2 came back up but then she closed her eyes and started to desat again. Rapid called, Doctor uli paged.
--- NOTE | 2019-03-24 11:50 | NUR ---
PAGER ID: [phone] MESSAGE: [id number] DARRYL JOHNSON
[2019-03-24] MEDS ORDERED: naloxone 0.4 mg/ml inj ONE (11:59)
--- NOTE | 2019-03-24 12:15 | NUR ---
Rapid Response A rapid response was called on this patient. On arrival to bedside, the patient was having frequent desats, having twitching of extremities and upper body, . Interventions: ABG drawn, CBC, CMP, Mg, Phos, LA, procalcitonin drawn, put on 2L NC, 4 of narcan given Rapid response outcome: RR normalized, SPO2 stabilized on 2LNC, Patient still somnolent, will continue to monitor.
[2019-03-24 12:21] LABS: ABG BASE EXCESS -3.8 mmol/L (-2.0-3.0); ABG HCO3 21.1 mmol/L (22.0-26.0); ABG OXYGEN SATURATION 88.9 % (95-98); ABG PH (T) 7.373 (7.350-7.450); ABG PO2 (T) 62.1 mmHg (83-108); FCOHb 0.2 % (0.5-1.5); FMetHb 0.3 % (0.3-1.12); FO2Hb 88.5 % (94-100); TOTAL HEMOGLOBIN 9.2 G/dl (12.0-16.0)
[2019-03-24 12:34] LABS: BASOPHILS % (AUTO) 0.6 % (0-1); EOSINOPHILS % (AUTO) 0.6 % (0-6); HEMATOCRIT 26.8 % (35.0-45.0); HEMOGLOBIN 8.8 g/dl (12.0-16.0); MEAN CORPUSCULAR HEMOGLOBIN 28.8 PG (27.0-31.0); MEAN CORPUSCULAR HGB CONC 32.9 g/dL (33.0-36.5); MEAN CORPUSCULAR VOLUME 87.8 FL (78-98); MEAN PLATELET VOLUME 7.4 FL (7.4-10.4); MONOCYTES # (AUTO) 1.1 X10'3 (0-0.9); MONOCYTES % (AUTO) 15.4 % (2-12); NEUTROPHILS # (AUTO) 5.1 X10'3 (1.8-7.7); NEUTROPHILS % (AUTO) 69.4 % (42-75); PLATELET COUNT 222 X10'3 (140-440); RED BLOOD COUNT 3.05 X10'6 (4.20-5.60); RED CELL DISTRIBUTION WIDTH 16.9 % (11.5-14.5); WHITE BLOOD COUNT 7.4 X10'3 (4.5-11.0)
[2019-03-24 12:47] LABS: ALANINE AMINOTRANSFERASE 54 U/L (12-78); ALBUMIN 3.2 G/DL (3.4-5.0); ALBUMIN/GLOBULIN RATIO 0.9 (1.1-1.5); ALKALINE PHOSPHATASE 119 IU/L (46-116); ANION GAP 10 (8-16); ASPARTATE AMINO TRANSFERASE 51 U/L (10-37); BILIRUBIN,TOTAL 0.4 MG/DL (0.1-1.0); BLOOD UREA NITROGEN 56 MG/DL (7-18); CALCIUM 8.8 MG/DL (8.5-10.1); CHLORIDE 105 MMOL/L (99-107); CREATININE 1.75 MG/DL (0.40-0.90); GLUCOSE 163 MG/DL (70-104); POTASSIUM 4.5 MMOL/L (3.5-5.1); SODIUM 142 MMOL/L (135-145); TOTAL CARBON DIOXIDE 26.6 MMOL/L (24-32); TOTAL PROTEIN 6.9 G/DL (6.4-8.2); eGFR 28 ML/MIN
[2019-03-24 13:01] LABS: TOTAL CELLS COUNTED 100
[2019-03-24 13:04] LABS: ANISOCYTOSIS 1+; PLATELET ESTIMATE NORMAL
[2019-03-24 13:05] LABS: ACANTHOCYTES 1+; ELLIPTOCYTES 1+; HYPOCHROMASIA 1+; POLYCHROMASIA 1+; SCHISTOCYTES FEW
[2019-03-24 13:26] LABS: MAGNESIUM 1.9 MG/DL (1.5-2.4); PHOSPHORUS 4.5 MG/DL (2.3-4.5)
--- NOTE | 2019-03-24 14:21 | NUR ---
Pt with A1c 7.3 previously admitted and seen by VIRGINIA 03/20/19 where pt was provided with written and verbal DM education with referral to outpatient DM class and RD contact information. No further DM education warranted at this time. Will continue to follow. Addendum: 03/24/19 at [address] Amended: Links added.
[2019-03-24 15:00] VITALS: BP 130/64
[2019-03-24] MEDS: ringers solution, lacted 1,000 ML IV SCH (15:55)
--- NOTE | 2019-03-24 18:24 | NUR ---
Problems reprioritized. Patient report given, questions answered & plan of care reviewed with RODRIGO Pozo.
[2019-03-24 19:00] VITALS: BP 115/45
[2019-03-24] MEDS: CefTRIAXone/D5W-Rocephin 1gm 50 ML IV SCH (19:44)
[2019-03-24] MEDS ORDERED: furosemide 40mg/4ml inj IV SCH (20:00)
[2019-03-24] MEDS: azithromycin/NS 500mg/250ml 250 ML IV SCH (20:29)
[2019-03-24] MEDS: insulin glargine (Lantus) pen - multi-dose SQ SCH (21:00)
[2019-03-24] MEDS ORDERED: temazepam 15mg capsule PO PRN (21:00)
[2019-03-24 23:00] VITALS: BP 156/67
--- NOTE | 2019-03-25 00:47 | NUR ---
Patient had not voided. bladder scan showed 570cc. Order obtained for straight cath. 500cc out.
[2019-03-25 03:00] VITALS: BP 142/57
[2019-03-25] MEDS: ringers solution, lacted 1,000 ML IV SCH ×3 (03:07→15:19)
[2019-03-25 04:58] LABS: HEMATOCRIT 28.9 % (35.0-45.0); HEMOGLOBIN 9.5 g/dl (12.0-16.0); MEAN CORPUSCULAR HEMOGLOBIN 28.5 PG (27.0-31.0); MEAN CORPUSCULAR HGB CONC 32.8 g/dL (33.0-36.5); MEAN PLATELET VOLUME 7.4 FL (7.4-10.4); PLATELET COUNT 268 X10'3 (140-440); RED BLOOD COUNT 3.32 X10'6 (4.20-5.60); RED CELL DISTRIBUTION WIDTH 16.9 % (11.5-14.5); WHITE BLOOD COUNT 13.1 X10'3 (4.5-11.0)
[2019-03-25 05:01] LABS: ALBUMIN 2.9 G/DL (3.4-5.0); ANION GAP 11 (8-16); BLOOD UREA NITROGEN 41 MG/DL (7-18); BUN/CREATININE RATIO 32.3 (6.6-38.0); CALCIUM 8.8 MG/DL (8.5-10.1); CHLORIDE 108 MMOL/L (99-107); CREATININE 1.27 MG/DL (0.40-0.90); GLUCOSE 92 MG/DL (70-104); MAGNESIUM 1.7 MG/DL (1.5-2.4); POTASSIUM 4.3 MMOL/L (3.5-5.1); SODIUM 144 MMOL/L (135-145); TOTAL CARBON DIOXIDE 24.6 MMOL/L (24-32); eGFR 41 ML/MIN
[2019-03-25 06:00] VITALS: BP 124/55
--- NOTE | 2019-03-25 06:28 | NUR ---
Patient in room PCU 3028. I have received report from Sánchez WALLACE and had the opportunity to ask questions and assume patient care.
--- NOTE | 2019-03-25 06:37 | NUR ---
Patient in room PCU 3011. I have received report from Sánchez WALLACE and had the opportunity to ask questions and assume patient care.
--- NOTE | 2019-03-25 07:57 | NUR ---
Patient breakfast tray was delivered before an NPO sign could be put up. Performed nursing bedside swallow evaluation which the patient had no trouble with. The patient had already been eating her breakfast with no difficulties. Will notify MD of condition,Will continue to monitor.
[2019-03-25] MEDS: K and/or MAG REPLACEMENT MC SCH (08:00)
[2019-03-25] MEDS ORDERED: enoxaparin 40mg/0.4ml syringe SQ SCH (08:00)
--- NOTE | 2019-03-25 08:40 | NUR ---
Patients daughter, Jacey, called and was updated on the patients condition.
[2019-03-25] MEDS: azithromycin/NS 500mg/250ml 250 ML IV SCH (08:45)
[2019-03-25] MEDS: levoTHYROXINE sod inj. 100mcg/5 ml vial IV SCH (08:45)
--- NOTE | 2019-03-25 09:30 | NUR ---
Spoke with Dr. Valerio regarding d/c of NPO order, passed nursing bedside swallow evariel, per MD norris to d/c NPO
[2019-03-25] MEDS: CefTRIAXone/D5W-Rocephin 1gm 50 ML IV SCH (10:03)
[2019-03-25 11:00] VITALS: BP 112/55
--- NOTE | 2019-03-25 11:14 | NUR ---
Patient's son, Merrill, at the bedside and updated on what is occurring with the patient and her plan of care. States that he is her POA.
--- NOTE | 2019-03-25 12:14 | NUR ---
Patient's son, Merrill, asked that the nursing staff please inform him first of any changes in the patient and that all decisions go through him, not his sister. Per Merrill, the patient was transferred from [facility] to [facility] without his knowledge and that it took him 6 calls to find her. Will pass this along in report.
--- NOTE | 2019-03-25 12:47 | NUR ---
Nutrition consult: Pt admit w/ ALOC and RLL PNA. Currently AOx1. S/p rapid response for hypoxia per . NPO on admit advanced to carb controlled/heart healthy/2L fluid-restricted diet today PO 25% avg first meal. Pending SP BSS tomorrow. Pt current wt not scaled; prior March standing scale wt 66kg compared to 68kg standing scale this November. Pt has no edema/wounds, no severe weakness, and no significant wt loss hx at this time and does not meet malnutrition criteria. Will monitor for diet advancement per SP and ONS needs. Addendum: 03/25/19 at [address] Amended: Links added.
--- NOTE | 2019-03-25 13:51 | NUR ---
Called [facility] and spoke with ROSALIO Gonsales. Per ABSTRACTOR, the only change in the patients medication at [facility] was a decrease in her Effexor on 03/21 from 150 mg BID to 150 mg QD. This change was 48 hours before her ALOC and desaturation. Stated that the patient had mild shakes in her extremities which then turned to really bad shakes with her eyes rolling in the back of her head and her O2 dropping. Per ABSTRACTOR, the pts Metformin was stopped on the due to her GFR being 40. The pt received [place] once for pain in her foot 48 hrs [employer] at [facility]. Per ABSTRACTOR, the family did not want the pt to have any narcotic pain medication.
[2019-03-25 15:00] VITALS: BP 115/39
--- NOTE | 2019-03-25 17:49 | NUR ---
Orientee documentation: I have reviewed and agree with interventions, assessments performed and documented by Sonali WALLACE. Orientee Medication Administration: For this medication-pass time frame, medication were reviewed, dispensed, administered and documented per hospital policy by Sonali WALLACE.
--- NOTE | 2019-03-25 18:15 | NUR ---
Problems reprioritized. Patient report given, questions answered & plan of care reviewed with Ryan RN.
--- NOTE | 2019-03-25 18:15 | NUR ---
Problems reprioritized. Patient report given, questions answered & plan of care reviewed with Ryan RN.
--- NOTE | 2019-03-25 18:30 | NUR ---
Patient in room PCU 3028. I have received report from Negin Alvarado RN and had the opportunity to ask questions and assume patient care.
[2019-03-25 19:00] VITALS: BP 93/50
[2019-03-25] MEDS: insulin Lispro (HumaLOG) vial - multi-dose SQ SCH (19:06)
[2019-03-25] MEDS: lactobacillus rhamnosus 10,000 MMU CELLS/CAPSULE PO SCH (21:11)
[2019-03-25] MEDS: insulin glargine (Lantus) pen - multi-dose SQ SCH (21:13)
[2019-03-26] MEDS: ringers solution, lacted 1,000 ML IV SCH (01:47)
[2019-03-26 03:00] VITALS: BP 102/50
--- NOTE | 2019-03-26 04:38 | NUR ---
BLADDER SCAN high reading of 180ml at this time
[2019-03-26 05:17] LABS: BASOPHILS % (AUTO) 0.5 % (0-1); EOSINOPHILS # (AUTO) 0.1 X10'3 (0-0.9); EOSINOPHILS % (AUTO) 0.7 % (0-6); HEMOGLOBIN 8.3 g/dl (12.0-16.0); LYMPHOCYTES % (AUTO) 11.8 % (21-51); MEAN CORPUSCULAR HEMOGLOBIN 28.9 PG (27.0-31.0); MEAN CORPUSCULAR VOLUME 87.5 FL (78-98); MEAN PLATELET VOLUME 7.7 FL (7.4-10.4); MONOCYTES # (AUTO) 1.2 X10'3 (0-0.9); MONOCYTES % (AUTO) 14.1 % (2-12); NEUTROPHILS # (AUTO) 6.2 X10'3 (1.8-7.7); NEUTROPHILS % (AUTO) 72.9 % (42-75); PLATELET COUNT 224 X10'3 (140-440); RED BLOOD COUNT 2.86 X10'6 (4.20-5.60); RED CELL DISTRIBUTION WIDTH 17.1 % (11.5-14.5); WHITE BLOOD COUNT 8.5 X10'3 (4.5-11.0)
[2019-03-26 05:48] LABS: ALANINE AMINOTRANSFERASE 58 U/L (12-78); ALBUMIN 2.7 G/DL (3.4-5.0); ALBUMIN/GLOBULIN RATIO 0.7 (1.1-1.5); ALKALINE PHOSPHATASE 106 IU/L (46-116); ANION GAP 12 (8-16); ASPARTATE AMINO TRANSFERASE 35 U/L (10-37); BILIRUBIN,TOTAL 0.5 MG/DL (0.1-1.0); BLOOD UREA NITROGEN 43 MG/DL (7-18); BUN/CREATININE RATIO 28.9 (6.6-38.0); CALCIUM 8.6 MG/DL (8.5-10.1); CHLORIDE 104 MMOL/L (99-107); CREATININE 1.49 MG/DL (0.40-0.90); GLUCOSE 109 MG/DL (70-104); MAGNESIUM 1.7 MG/DL (1.5-2.4); PHOSPHORUS 2.8 MG/DL (2.3-4.5); POTASSIUM 4.6 MMOL/L (3.5-5.1); SODIUM 140 MMOL/L (135-145); TOTAL PROTEIN 6.5 G/DL (6.4-8.2); eGFR 34 ML/MIN
[2019-03-26 06:00] VITALS: BP 102/47
--- NOTE | 2019-03-26 06:10 | NUR ---
Patient in room PCU 3028. I have received report from Ryan RN and had the opportunity to ask questions and assume patient care.
--- NOTE | 2019-03-26 06:21 | NUR ---
Problems reprioritized. Patient report given, questions answered & plan of care reviewed with Negin Alvarado RN.
[2019-03-26] MEDS ORDERED: azithromycin 250mg tablet PO SCH (08:00)
[2019-03-26] MEDS: K and/or MAG REPLACEMENT MC SCH (08:00)
[2019-03-26] MEDS ORDERED: silver sulfadiazine cream 50gm TP SCH (08:00)
[2019-03-26] MEDS: insulin Lispro (HumaLOG) vial - multi-dose SQ SCH ×2 (08:17→13:07)
[2019-03-26] MEDS: levoTHYROXINE sod inj. 100mcg/5 ml vial IV SCH (08:17)
[2019-03-26] MEDS: CefTRIAXone/D5W-Rocephin 1gm 50 ML IV SCH (08:18)
[2019-03-26] MEDS: lactobacillus rhamnosus 10,000 MMU CELLS/CAPSULE PO SCH (08:18)
--- NOTE | 2019-03-26 08:54 | NUR ---
Patient's son, Merrill, called and was updated on the patients plan of care. Wanted to know if there was any talk of sending her to rehab today. I reiterated that the doctor hasn't come to see her yet today and that we would know more once he comes to see her.
[2019-03-26] MEDS ORDERED: ringers solution, lacted 1,000 ML IV SCH (09:30)
--- NOTE | 2019-03-26 09:30 | NUR ---
Spoke w/ Dr. Valerio regarding pt and plan of care. New orders to change rate of LR to 50ml/hr. Will notify when EEG, which is planned for later today, is complete.
--- NOTE | 2019-03-26 12:16 | NUR ---
Called the pts son and POAMerrill, and let him know that there is talk of discharging his mom to rehab today. He thanked me for the update and stated that he does not want his mother discharged to [facility] but would rather have her discharged to [facility].
--- NOTE | 2019-03-26 12:28 | NUR ---
Pts daughter, Jacey, called to see how her mother is doing. Updated her on the pts plan of carer and transferred the call to the pts own personal room phone
--- NOTE | 2019-03-26 14:10 | NUR ---
Called report to [facility] and spoke w/ Alem SANTAMARIA. Patient report given, questions answered & plan of care reviewed with Alem SANTAMARIA. Awaiting pts transfer to [facility].
--- NOTE | 2019-03-26 14:19 | NUR ---
Orientee documentation: I have reviewed and agree with interventions, assessments performed and documented by Sonali WALLACE. Orientee Medication Administration: For this medication-pass time frame, medication were reviewed, dispensed, administered and documented per hospital policy by Sonlai WALLACE .
[2019-03-26 15:00] VITALS: BP 110/80
--- NOTE | 2019-03-26 15:30 | NUR ---
Elvin cargo arrived to the unit at 1530, PIV removed, Tele monitor discontinued, no valuables found in the room to be sent with the patient, pt left the unit at 1530 in a wheelchair with elvin cargo member.
--- NOTE | 2019-03-26 15:30 | NUR ---
Debi cargo was 30 minutes later to slate picker patient.
== END 2019-03-26 15:30 | DRG 70 ==
LOC: ER 08:14 → ED HOLD 10:25 → PCU 3S 11:20
PROVIDERS: ADMIT Family Medicine; ATTEND Family Medicine
PROC: 4A00X4Z Measurement of Central Nervous Electrical Activity, External Approach (ICD-10-PCS; principal; 2019-03-26)
DX: G93.41 Metabolic encephalopathy (principal); J96.01 Acute respiratory failure with hypoxia; J18.9 Pneumonia, unspecified organism; I50.20 Unspecified systolic (congestive) heart failure; I48.0 Paroxysmal atrial fibrillation; E03.9 Hypothyroidism, unspecified; E11.9 Type 2 diabetes mellitus without complications; E78.5 Hyperlipidemia, unspecified; F32.9 Major depressive disorder, single episode, unspecified; I11.0 Hypertensive heart disease with heart failure; I25.10 Atherosclerotic heart disease of native coronary artery without angina pectoris; I25.2 Old myocardial infarction; Z86.73 Personal history of transient ischemic attack (TIA), and cerebral infarction without residual deficits; Z95.1 Presence of aortocoronary bypass graft; Z96.653 Presence of artificial knee joint, bilateral; Z98.84 Bariatric surgery status; Z88.5 Allergy status to narcotic agent; Z88.1 Allergy status to other antibiotic agents; Z88.8 Allergy status to other drugs, medicaments and biological substances; Z79.899 Other long term (current) drug therapy
CPT/HCPCS: 36415; 36600; 70450; 70544; 70551; 71045; 80048; 80053; 80305; 80320; 81003; 82140; 82803; 82948; 83036; 83605; 83735; 83880; 84100; 84145; 84439; 84443; 85018; 85025; 85027; 85610; 85730; 86885; 86900; 86901; 92508; 92616; 93005; 93880; 94760; 95816; 97116; 97161; 97530; 99285; G0378; J0456; J0696; J1815; J2310; J7120

== ENCOUNTER 2019-04-07 01:24 | Inpatient (IN) | payer MEDICARE, OTHER ==
[~2019-04-07] VITALS: Ht 160 cm; Wt 77.0 kg
[~2019-04-07 01:24] MED LIST changes: -GLIM1TAB PO
[2019-04-07 02:57] LABS: BASOPHILS # (AUTO) 0.1 X10'3 (0-0.2); BASOPHILS % (AUTO) 1.2 % (0-1); EOSINOPHILS % (AUTO) 0.5 % (0-6); HEMATOCRIT 23.7 % (35.0-45.0); HEMOGLOBIN 7.6 g/dl (12.0-16.0); LYMPHOCYTES % (AUTO) 14.9 % (21-51); MEAN CORPUSCULAR HEMOGLOBIN 28.9 PG (27.0-31.0); MEAN CORPUSCULAR HGB CONC 32.1 g/dL (33.0-36.5); MEAN CORPUSCULAR VOLUME 89.8 FL (78-98); MEAN PLATELET VOLUME 8.2 FL (7.4-10.4); MONOCYTES # (AUTO) 0.7 X10'3 (0-0.9); MONOCYTES % (AUTO) 10.7 % (2-12); NEUTROPHILS % (AUTO) 72.7 % (42-75); PLATELET COUNT 214 X10'3 (140-440); RED BLOOD COUNT 2.64 X10'6 (4.20-5.60); RED CELL DISTRIBUTION WIDTH 19.3 % (11.5-14.5); WHITE BLOOD COUNT 6.9 X10'3 (4.5-11.0)
[2019-04-07 03:38] LABS: ACANTHOCYTES FEW; ANISOCYTOSIS 2+; BURR CELLS 2+; ELLIPTOCYTES FEW; PLATELET ESTIMATE NORMAL; POLYCHROMASIA FEW
[2019-04-07] MEDS ORDERED: IPRA3AMP31 IH (03:38)
[2019-04-07] MEDS ORDERED: ACET-3080 PO (03:38)
[2019-04-07] MEDS ORDERED: IBUP-1984 PO (03:38)
[2019-04-07] MEDS ORDERED: PPD ID (03:38)
[2019-04-07] MEDS ORDERED: NA P133E4 RC (03:38)
[2019-04-07] MEDS ORDERED: INSU100V11 SQ (03:38)
[2019-04-07] MEDS ORDERED: MAGN400O6 PO (03:38)
[2019-04-07] MEDS: normal saline 1000ml 1,000 ML IV SCH ×2 (03:40→05:37)
[2019-04-07] MEDS ORDERED: ondansetron/PF 4mg/2ml inj IV PRN (03:40)
[2019-04-07] MEDS ORDERED: magnesium hydroxide 30ml (MOM) UD suspension PO PRN ×2 (03:40→03:45)
[2019-04-07] MEDS ORDERED: acetaminophen 325mg tablet PO PRN (03:40)
[2019-04-07] MEDS ORDERED: mag hydrox/Alum hydrox/simeth 30ml oral suspension PO PRN (03:40)
[2019-04-07] MEDS ORDERED: ipratropium/albuterol 3ml nebule IH PRN (03:45)
[2019-04-07] MEDS ORDERED: bisacodyl 10mg suppository rectal RC PRN (03:45)
[2019-04-07] MEDS ORDERED: nitroGLYCERIN 0.4mg SUBLingual tab SL PRN (03:45)
[2019-04-07 04:00] LABS: ALANINE AMINOTRANSFERASE 29 U/L (12-78); ALBUMIN 2.8 G/DL (3.4-5.0); ALBUMIN/GLOBULIN RATIO 0.8 (1.1-1.5); ALKALINE PHOSPHATASE 116 IU/L (46-116); ANION GAP 9 (8-16); ASPARTATE AMINO TRANSFERASE 14 U/L (10-37); BILIRUBIN,TOTAL 0.3 MG/DL (0.1-1.0); BLOOD UREA NITROGEN 52 MG/DL (7-18); BUN/CREATININE RATIO 42.3 (6.6-38.0); CALCIUM 8.8 MG/DL (8.5-10.1); CHLORIDE 110 MMOL/L (99-107); CREATININE 1.23 MG/DL (0.40-0.90); GLUCOSE 69 MG/DL (70-104); POTASSIUM 5.3 MMOL/L (3.5-5.1); SODIUM 143 MMOL/L (135-145); TOTAL CARBON DIOXIDE 24.3 MMOL/L (24-32); TOTAL PROTEIN 6.5 G/DL (6.4-8.2); eGFR 42 ML/MIN
[2019-04-07] MEDS ORDERED: [UNRECOGNIZED DRUG - OTHER] RC PRN (04:30)
--- NOTE | 2019-04-07 05:31 | NUR ---
Received report from Scotty WALLACE pt arrived via gurney, scooted self over to bed, on 2L of O2 via MO, tucked pt into bed. will review orders and Doctor's note
[2019-04-07 05:45] VITALS: BP 140/64
[2019-04-07 06:00] VITALS: BP 124/49
--- NOTE | 2019-04-07 06:11 | NUR ---
Gave report to Nicolas WALLACE pt is resting on 2L of O2 via NC in no apparent distress, call light and items of freq use within reach.
--- NOTE | 2019-04-07 06:43 | NUR ---
Patient in room PCU 3017. I have received report from Mare WALLACE and had the opportunity to ask questions and assume patient care.
--- NOTE | 2019-04-07 07:36 | NUR ---
PAGER ID: [phone] MESSAGE: [phone] Mary Neely: New admit w/ hx of DMII, can we start pt on hyperglycemia protocol? Thanks Keren
[2019-04-07] MEDS ORDERED: glucagon, human recombinant 1mg kit SUBCUT PRN (07:50)
[2019-04-07] MEDS ORDERED: dextrose 50%-water 50ml dispensing syringe IV PRN ×2 (07:50)
[2019-04-07] MEDS ORDERED: dextrose ORAL solution 15 GM/59 ML bottle PO PRN ×2 (07:50)
[2019-04-07] MEDS ORDERED: MESSAGE TO PHARMACY PO ONE (07:50)
--- NOTE | 2019-04-07 07:50 | NUR ---
Checked pt BS prior to breakfast and read 70, pt is asymptomatic and refuses to take any glucose drink because it causes her to be nauseas and stats this is her usual BS prior to breakfast, pt has good appetite and will eat breakfast, will continue to monitor.
--- NOTE | 2019-04-07 07:57 | NUR ---
received orders to initiate hyperglycemia protocol per dr. peña
[2019-04-07] MEDS: LIDOcaine 2% 5ml jelly MM SCH ×2 (08:00→20:51)
[2019-04-07] MEDS: lactobacillus rhamnosus 10,000 MMU CELLS/CAPSULE PO SCH ×2 (08:12→20:51)
[2019-04-07] MEDS: levoTHYROXINE 100mcg tablet PO SCH (08:12)
[2019-04-07] MEDS: heparin, porcine 5000 units/ml vial SQ SCH ×2 (08:13→20:50)
[2019-04-07] MEDS: bumetanide 1mg tablet PO SCH (08:13)
[2019-04-07] MEDS ORDERED: sodium polystyrene sulfonate 15gm/60ml oral suspension PO ONE (10:00)
[2019-04-07] MEDS: acetaminophen 325mg tablet PO PRN ×2 (10:52→20:51)
[2019-04-07] MEDS ORDERED: magnesium Cl slow-release 64mg tablet PO PRN (11:35)
[2019-04-07] MEDS: K and/or MAG REPLACEMENT MC SCH ×2 (11:35→20:00)
[2019-04-07] MEDS ORDERED: potassium CL 10mEq/100ml bag 100 ML IV PRN (11:35)
[2019-04-07] MEDS ORDERED: potassium Cl 20 mEq SR tablet PO PRN ×2 (11:35)
[2019-04-07 15:00] VITALS: BP 131/58
--- NOTE | 2019-04-07 18:30 | NUR ---
Patient in room PCU 3017. I have received report from Keren WALLACE and had the opportunity to ask questions and assume patient care.
--- NOTE | 2019-04-07 18:31 | NUR ---
Problems reprioritized. Patient report given, questions answered & plan of care reviewed with David WALLACE.
[2019-04-07 19:00] VITALS: BP 136/36
[2019-04-07] MEDS: insulin Lispro (HumaLOG) vial - multi-dose SQ SCH (19:21)
[2019-04-07] MEDS: atorvastatin 20mg tablet PO SCH (20:50)
[2019-04-07] MEDS: insulin glargine (Lantus) pen - multi-dose SQ SCH (21:00)
--- NOTE | 2019-04-07 22:34 | NUR ---
NOTIFIED PAGER ID: [phone] MESSAGE: Mary Neely, [id number]- pt has burn on foot, pt is experiencing 8-9/10 pain and visibly in pain. only prn pain med is Tylenol with no effect. may she have something else for pain? thank you
[2019-04-07] MEDS ORDERED: HYDROcodone/acetaminophen 5mg/325mg tablet PO PRN (22:50)
[2019-04-07 23:00] VITALS: BP 156/35
[2019-04-08 03:00] VITALS: BP 151/39
[2019-04-08 05:39] LABS: BASOPHILS # (AUTO) 0.1 X10'3 (0-0.2); BASOPHILS % (AUTO) 1.1 % (0-1); EOSINOPHILS % (AUTO) 0.5 % (0-6); HEMATOCRIT 24.3 % (35.0-45.0); HEMOGLOBIN 7.8 g/dl (12.0-16.0); LYMPHOCYTES # (AUTO) 1.1 X10'3 (1.1-4.8); LYMPHOCYTES % (AUTO) 16.7 % (21-51); MEAN CORPUSCULAR HEMOGLOBIN 28.7 PG (27.0-31.0); MEAN CORPUSCULAR HGB CONC 32.1 g/dL (33.0-36.5); MEAN CORPUSCULAR VOLUME 89.3 FL (78-98); MEAN PLATELET VOLUME 8.1 FL (7.4-10.4); MONOCYTES # (AUTO) 0.6 X10'3 (0-0.9); MONOCYTES % (AUTO) 9.2 % (2-12); NEUTROPHILS # (AUTO) 4.8 X10'3 (1.8-7.7); NEUTROPHILS % (AUTO) 72.5 % (42-75); PLATELET COUNT 196 X10'3 (140-440); RED BLOOD COUNT 2.72 X10'6 (4.20-5.60); RED CELL DISTRIBUTION WIDTH 19.3 % (11.5-14.5); WHITE BLOOD COUNT 6.6 X10'3 (4.5-11.0)
[2019-04-08 05:41] LABS: ALANINE AMINOTRANSFERASE 28 U/L (12-78); ALBUMIN 2.7 G/DL (3.4-5.0); ALBUMIN/GLOBULIN RATIO 0.8 (1.1-1.5); ALKALINE PHOSPHATASE 112 IU/L (46-116); ANION GAP 10 (8-16); ASPARTATE AMINO TRANSFERASE 12 U/L (10-37); BILIRUBIN,TOTAL 0.4 MG/DL (0.1-1.0); BLOOD UREA NITROGEN 49 MG/DL (7-18); BUN/CREATININE RATIO 38.6 (6.6-38.0); CALCIUM 8.4 MG/DL (8.5-10.1); CHLORIDE 109 MMOL/L (99-107); CREATININE 1.27 MG/DL (0.40-0.90); GLUCOSE 150 MG/DL (70-104); MAGNESIUM 1.8 MG/DL (1.5-2.4); POTASSIUM 4.7 MMOL/L (3.5-5.1); SODIUM 142 MMOL/L (135-145); TOTAL CARBON DIOXIDE 23.3 MMOL/L (24-32); TOTAL PROTEIN 6.3 G/DL (6.4-8.2); eGFR 41 ML/MIN
--- NOTE | 2019-04-08 06:25 | NUR ---
Patient in room PCU 3017. I have received report from [facility] RN and had the opportunity to ask questions and assume patient care. Patient asleep in bed and resting comfortably.
--- NOTE | 2019-04-08 06:27 | NUR ---
Patient in room PCU 3017. I have received report from RODRIGO Davis and had the opportunity to ask questions and assume patient care.
--- NOTE | 2019-04-08 06:35 | NUR ---
Problems reprioritized. Patient report given, questions answered & plan of care reviewed with Rosalia WALLACE.
[2019-04-08 07:00] VITALS: BP 136/72
[2019-04-08 07:23] LABS: ANISOCYTOSIS 2+; HYPOCHROMASIA 1+; PLATELET ESTIMATE NORMAL; POLYCHROMASIA 1+
[2019-04-08 07:24] LABS: ACANTHOCYTES 2+; ELLIPTOCYTES 1+
[2019-04-08] MEDS: K and/or MAG REPLACEMENT MC SCH ×2 (07:55→20:00)
[2019-04-08] MEDS: levoTHYROXINE 100mcg tablet PO SCH (07:55)
[2019-04-08] MEDS: amiodarone 100mg tablet PO SCH (07:56)
[2019-04-08] MEDS: lactobacillus rhamnosus 10,000 MMU CELLS/CAPSULE PO SCH ×2 (07:56→19:28)
[2019-04-08] MEDS: bumetanide 1mg tablet PO SCH (07:57)
[2019-04-08] MEDS: heparin, porcine 5000 units/ml vial SQ SCH ×2 (07:57→19:28)
[2019-04-08] MEDS: LIDOcaine 2% 5ml jelly MM SCH ×2 (08:00→20:00)
--- NOTE | 2019-04-08 08:45 | NUR ---
Pt SBP recheck was in the mid 80s. Pt is persistent in standing up. Instructed and educated patient to rest and sit to prevent any falls. Addendum: 04/08/19 at 1009 by Evelin Mayorga RN VOID, documented under incorrect pt
[2019-04-08] MEDS: insulin Lispro (HumaLOG) vial - multi-dose SQ SCH ×3 (08:56→19:27)
[2019-04-08 11:00] VITALS: BP 129/42
--- NOTE | 2019-04-08 14:00 | NUR ---
DM Consult: A1C 8.0. Pt seen by [place] 3 weeks ago prior admit for written/verbal DM ed w/ RD contact information provided. Addendum: 04/08/19 at [address] Amended: Links added.
[2019-04-08 15:00] VITALS: BP 135/38
[2019-04-08 18:00] VITALS: BP 135/69
--- NOTE | 2019-04-08 18:29 | NUR ---
Problems reprioritized. Patient report given, questions answered & plan of care reviewed with RODRIGO Canales. Patient stable at transfer of care.
--- NOTE | 2019-04-08 18:33 | NUR ---
Patient in room PCU 3017. I have received report from Rosalia WALLACE and had the opportunity to ask questions and assume patient care. Bedside report completed. adjusted pt in bed, fall precaution implemented. no distress noted.
--- NOTE | 2019-04-08 18:37 | NUR ---
[place] documentation: I have reviewed and agree with all interventions, assessments performed and documented by Evelin WALLACE. [place] Medication Administration: For this medication-pass time frame, all medication were reviewed, dispensed, administered and documented per hospital policy by Evelin WALLACE.
[2019-04-08] MEDS: atorvastatin 20mg tablet PO SCH (21:58)
[2019-04-08 22:00] VITALS: BP 151/59
[2019-04-08] MEDS: insulin glargine (Lantus) pen - multi-dose SQ SCH (22:02)
[2019-04-09 02:00] VITALS: BP 144/42
[2019-04-09] MEDS: normal saline 1000ml 1,000 ML IV SCH (03:40)
[2019-04-09 05:24] LABS: BASOPHILS # (AUTO) 0.1 X10'3 (0-0.2); EOSINOPHILS % (AUTO) 0.8 % (0-6); HEMATOCRIT 24.7 % (35.0-45.0); LYMPHOCYTES # (AUTO) 0.9 X10'3 (1.1-4.8); MEAN CORPUSCULAR HEMOGLOBIN 28.9 PG (27.0-31.0); MEAN CORPUSCULAR HGB CONC 32.2 g/dL (33.0-36.5); MEAN CORPUSCULAR VOLUME 89.8 FL (78-98); MEAN PLATELET VOLUME 8.2 FL (7.4-10.4); MONOCYTES # (AUTO) 0.6 X10'3 (0-0.9); MONOCYTES % (AUTO) 10.7 % (2-12); NEUTROPHILS % (AUTO) 71.5 % (42-75); PLATELET COUNT 191 X10'3 (140-440); RED BLOOD COUNT 2.75 X10'6 (4.20-5.60); RED CELL DISTRIBUTION WIDTH 19.1 % (11.5-14.5); WHITE BLOOD COUNT 5.5 X10'3 (4.5-11.0)
[2019-04-09 05:38] LABS: ALANINE AMINOTRANSFERASE 36 U/L (12-78); ALBUMIN 2.8 G/DL (3.4-5.0); ALBUMIN/GLOBULIN RATIO 0.8 (1.1-1.5); ALKALINE PHOSPHATASE 131 IU/L (46-116); ANION GAP 9 (8-16); ASPARTATE AMINO TRANSFERASE 17 U/L (10-37); BILIRUBIN,TOTAL 0.4 MG/DL (0.1-1.0); BLOOD UREA NITROGEN 50 MG/DL (7-18); BUN/CREATININE RATIO 39.1 (6.6-38.0); CALCIUM 8.2 MG/DL (8.5-10.1); CHLORIDE 108 MMOL/L (99-107); CREATININE 1.28 MG/DL (0.40-0.90); GLUCOSE 177 MG/DL (70-104); MAGNESIUM 1.7 MG/DL (1.5-2.4); POTASSIUM 4.2 MMOL/L (3.5-5.1); SODIUM 140 MMOL/L (135-145); TOTAL CARBON DIOXIDE 23.1 MMOL/L (24-32); TOTAL PROTEIN 6.3 G/DL (6.4-8.2); eGFR 40 ML/MIN
--- NOTE | 2019-04-09 06:18 | NUR ---
Problems reprioritized. Patient report given, questions answered & plan of care reviewed with Rosalia WALLACE. assisted pt to bathroom and back to bed, no distress noted.
--- NOTE | 2019-04-09 06:32 | NUR ---
Patient in room PCU 3017. I have received report from Ally WALLACE and had the opportunity to ask questions and assume patient care. Patient up to toilet. All immediate needs met at this time.
[2019-04-09 07:00] VITALS: BP 152/61
[2019-04-09] MEDS: LIDOcaine 2% 5ml jelly MM SCH ×2 (08:00→20:00)
[2019-04-09] MEDS: K and/or MAG REPLACEMENT MC SCH ×2 (08:00→19:00)
[2019-04-09 09:23] LABS: PLATELET ESTIMATE NORMAL
[2019-04-09 09:25] LABS: POIKILOCYTOSIS 1+
[2019-04-09 09:26] LABS: ANISOCYTOSIS 2+; BURR CELLS 2+; ELLIPTOCYTES 1+
[2019-04-09 09:27] LABS: HYPOCHROMASIA 1+; SCHISTOCYTES 1+
[2019-04-09] MEDS: atorvastatin 20mg tablet PO SCH (09:28)
[2019-04-09] MEDS: bumetanide 1mg tablet PO SCH (09:28)
[2019-04-09] MEDS: amiodarone 100mg tablet PO SCH (09:28)
[2019-04-09] MEDS: lactobacillus rhamnosus 10,000 MMU CELLS/CAPSULE PO SCH ×2 (09:28→21:01)
[2019-04-09] MEDS: levoTHYROXINE 100mcg tablet PO SCH (09:28)
[2019-04-09] MEDS: heparin, porcine 5000 units/ml vial SQ SCH ×2 (09:29→21:01)
[2019-04-09] MEDS: insulin Lispro (HumaLOG) vial - multi-dose SQ SCH ×3 (09:36→19:25)
[2019-04-09 11:00] VITALS: BP 148/48
[2019-04-09] MEDS: lisinopril 5mg tablet PO SCH (12:56)
[2019-04-09 15:00] VITALS: BP 105/35
[2019-04-09] MEDS: silver sulfadiazine cream 400gm jar TP SCH (16:00)
[2019-04-09 18:00] VITALS: BP 125/44
--- NOTE | 2019-04-09 18:54 | NUR ---
Patient in room PCU 3017. I have received report from Rosalia WALLACE and had the opportunity to ask questions and assume patient care.
--- NOTE | 2019-04-09 18:54 | NUR ---
Problems reprioritized. Patient report given, questions answered & plan of care reviewed with RODRIGO Avila. Patient stable at transfer of care.
[2019-04-09] MEDS: insulin glargine (Lantus) pen - multi-dose SQ SCH (21:03)
[2019-04-09 22:00] VITALS: BP 152/45
[2019-04-10 02:00] VITALS: BP 145/50
[2019-04-10 05:13] LABS: BASOPHILS # (AUTO) 0.1 X10'3 (0-0.2); BASOPHILS % (AUTO) 1.1 % (0-1); EOSINOPHILS % (AUTO) 0.8 % (0-6); HEMATOCRIT 23.5 % (35.0-45.0); HEMOGLOBIN 7.9 g/dl (12.0-16.0); LYMPHOCYTES % (AUTO) 17.2 % (21-51); MEAN CORPUSCULAR HEMOGLOBIN 29.4 PG (27.0-31.0); MEAN CORPUSCULAR HGB CONC 33.5 g/dL (33.0-36.5); MEAN PLATELET VOLUME 7.8 FL (7.4-10.4); MONOCYTES # (AUTO) 0.6 X10'3 (0-0.9); MONOCYTES % (AUTO) 10.1 % (2-12); NEUTROPHILS # (AUTO) 4.2 X10'3 (1.8-7.7); NEUTROPHILS % (AUTO) 70.8 % (42-75); PLATELET COUNT 201 X10'3 (140-440); RED BLOOD COUNT 2.68 X10'6 (4.20-5.60); RED CELL DISTRIBUTION WIDTH 19.6 % (11.5-14.5); WHITE BLOOD COUNT 5.9 X10'3 (4.5-11.0)
[2019-04-10 05:33] LABS: ALANINE AMINOTRANSFERASE 25 U/L (12-78); ALBUMIN 2.7 G/DL (3.4-5.0); ALBUMIN/GLOBULIN RATIO 0.8 (1.1-1.5); ALKALINE PHOSPHATASE 110 IU/L (46-116); ANION GAP 9 (8-16); ASPARTATE AMINO TRANSFERASE 13 U/L (10-37); BILIRUBIN,TOTAL 0.4 MG/DL (0.1-1.0); BLOOD UREA NITROGEN 47 MG/DL (7-18); BUN/CREATININE RATIO 32.4 (6.6-38.0); CALCIUM 8.7 MG/DL (8.5-10.1); CHLORIDE 109 MMOL/L (99-107); CREATININE 1.45 MG/DL (0.40-0.90); GLUCOSE 90 MG/DL (70-104); MAGNESIUM 1.7 MG/DL (1.5-2.4); POTASSIUM 4.2 MMOL/L (3.5-5.1); SODIUM 144 MMOL/L (135-145); TOTAL CARBON DIOXIDE 25.7 MMOL/L (24-32); TOTAL PROTEIN 6.3 G/DL (6.4-8.2); eGFR 35 ML/MIN
--- NOTE | 2019-04-10 06:07 | NUR ---
Problems reprioritized. Patient report given, questions answered & plan of care reviewed with Rosalia WALLACE.
--- NOTE | 2019-04-10 06:18 | NUR ---
Patient in room PCU 3017. I have received report from RODRIGO Avila and had the opportunity to ask questions and assume patient care. Patient asleep in bed and in no acute distress. Will continue to monitor.
[2019-04-10 06:30] LABS: ANISOCYTOSIS 2+; PLATELET ESTIMATE NORMAL
[2019-04-10 06:31] LABS: BURR CELLS 1+; ELLIPTOCYTES 1+
[2019-04-10 06:33] LABS: ACANTHOCYTES FEW
[2019-04-10 06:36] LABS: POLYCHROMASIA FEW; SCHISTOCYTES FEW
[2019-04-10 07:00] VITALS: BP 145/38
[2019-04-10] MEDS: heparin, porcine 5000 units/ml vial SQ SCH (07:39)
[2019-04-10] MEDS: lactobacillus rhamnosus 10,000 MMU CELLS/CAPSULE PO SCH (07:40)
[2019-04-10] MEDS: levoTHYROXINE 100mcg tablet PO SCH (07:40)
[2019-04-10] MEDS: amiodarone 100mg tablet PO SCH (07:40)
[2019-04-10] MEDS: bumetanide 1mg tablet PO SCH (07:42)
[2019-04-10] MEDS: lisinopril 5mg tablet PO SCH (07:42)
[2019-04-10] MEDS: K and/or MAG REPLACEMENT MC SCH (07:46)
[2019-04-10] MEDS: LIDOcaine 2% 5ml jelly MM SCH (07:47)
[2019-04-10] MEDS: insulin Lispro (HumaLOG) vial - multi-dose SQ SCH ×2 (08:58→13:26)
[2019-04-10] MEDS: silver sulfadiazine cream 400gm jar TP SCH (13:26)
--- NOTE | 2019-04-10 14:44 | NUR ---
PT is stable for discharge per MD orders to [facility]. PIV discontinued, cannula intact. Tele monitor discontinued. Belongings collected and sent with patient. Patient discharged via wheelchair by transportation services. Wheeled to serge. Addendum: 04/10/19 at 1501 by Rosalia Cuadra RN Patient stable for transfer per MD orders. Report called to RODRIGO Gillespie. All questions answered. Transfer packet sent with patient. Copy retained in chart.
[2019-04-22] MEDS ORDERED: BUMEX PO (16:03)
[2019-04-22] MEDS ORDERED: RIVA20TA PO (16:03)
[2019-04-22] MEDS ORDERED: SITA25TA3 PO (16:05)
[2019-04-22] MEDS ORDERED: LISI-604 PO (16:05)
[2019-04-30] MEDS ORDERED: BUME1TAB8 PO (15:39)
[2019-04-30] MEDS ORDERED: RIVA15TA PO (15:39)
[2019-04-30] MEDS ORDERED: LISI2.5T2 PO (15:39)
[2019-04-30] MEDS ORDERED: LACT1CAP65 PO (15:45)
[2019-04-30] MEDS ORDERED: DOCU-20 PO (15:45)
[2019-05-05] MEDS ORDERED: SILV20CR13 TP (09:36)
== END 2019-04-10 14:37 | DRG 309 ==
LOC: ER 01:25 → ED HOLD 03:43 → PCU 3S 05:33
PROVIDERS: ADMIT Internal Medicine; ATTEND Family Medicine
DX: I49.5 Sick sinus syndrome (principal); I13.0 Hypertensive heart and chronic kidney disease with heart failure and stage 1 through stage 4 chronic kidney disease, or unspecified chronic kidney disease; I50.22 Chronic systolic (congestive) heart failure; D64.9 Anemia, unspecified; E03.9 Hypothyroidism, unspecified; E11.22 Type 2 diabetes mellitus with diabetic chronic kidney disease; E78.5 Hyperlipidemia, unspecified; E87.5 Hyperkalemia; G31.84 Mild cognitive impairment of uncertain or unknown etiology; I25.10 Atherosclerotic heart disease of native coronary artery without angina pectoris; I35.0 Nonrheumatic aortic (valve) stenosis; I48.0 Paroxysmal atrial fibrillation; K21.9 Gastro-esophageal reflux disease without esophagitis; N18.9 Chronic kidney disease, unspecified; Z79.899 Other long term (current) drug therapy; Z86.73 Personal history of transient ischemic attack (TIA), and cerebral infarction without residual deficits; Z95.1 Presence of aortocoronary bypass graft; Z95.5 Presence of coronary angioplasty implant and graft; Z98.84 Bariatric surgery status; Z90.49 Acquired absence of other specified parts of digestive tract; T25.221D Burn of second degree of right foot, subsequent encounter
CPT/HCPCS: 36415; 71045; 80053; 82948; 83036; 83735; 83880; 84484; 85025; 87081; 93005; 94640; 94760; 97112; 97116; 97161; 97530; 99285; G0378; J1644; J1815; J7030

== ENCOUNTER 2019-06-09 02:46 | Inpatient (IN) | payer MEDICARE, OTHER ==
[~2019-06-09] VITALS: Ht 161.3 cm; Wt 77.3 kg
[~2019-06-09 02:46] MED LIST changes: +ACET-3080 PO; -AMIO200T61 PO; -AMLO2.5T5 PO; -CARV3.12 PO; +DOCU-20 PO; -HYDR-4353 PO; -HYDR-4383 PO; +IPRA3AMP31 IH; +LISI2.5T2 PO; -MAGN400O6 PO; -METF-516 PO; -RIVA20TA PO; -SILV20CR13 TOP; -VENL150C2 PO; -XYL25J MM
[2019-06-09] MEDS ORDERED: methylPREDNISolone sod succ 125mg/2ml vial IV ONE (03:00)
[2019-06-09] MEDS ORDERED: ipratropium/albuterol 3ml nebule NEB ONE (03:00)
[2019-06-09 03:26] LABS: ABG BASE EXCESS -2.9 mmol/L (-2.0-3.0); ABG HCO3 21.3 mmol/L (22.0-26.0); ABG OXYGEN SATURATION 98.3 % (95-98); ABG PH (T) 7.411 (7.350-7.450); ABG PO2 (T) 120.9 mmHg (83-108); ALLEN'S TEST POSITIVE; FCOHb 0.5 % (0.5-1.5); FLOW 4 L/min; FMetHb 0.1 % (0.3-1.12); FO2Hb 97.7 % (94-100); PATIENT TEMPERATURE 36.5; TOTAL HEMOGLOBIN 11.2 G/dl (12.0-16.0)
[2019-06-09] MEDS ORDERED: LORazepam 2 mg/ml vial IV ONE (03:35)
[2019-06-09 03:55] LABS: BASOPHILS # (AUTO) 0.1 X10'3 (0-0.2); BASOPHILS % (AUTO) 0.9 % (0-1); EOSINOPHILS # (AUTO) 0.1 X10'3 (0-0.9); EOSINOPHILS % (AUTO) 0.8 % (0-6); HEMATOCRIT 33.6 % (35.0-45.0); HEMOGLOBIN 10.7 g/dl (12.0-16.0); LYMPHOCYTES # (AUTO) 2.1 X10'3 (1.1-4.8); LYMPHOCYTES % (AUTO) 29.9 % (21-51); MEAN CORPUSCULAR HEMOGLOBIN 28.7 PG (27.0-31.0); MEAN CORPUSCULAR HGB CONC 31.8 g/dL (33.0-36.5); MEAN CORPUSCULAR VOLUME 90.2 FL (78-98); MONOCYTES # (AUTO) 0.7 X10'3 (0-0.9); MONOCYTES % (AUTO) 10.2 % (2-12); NEUTROPHILS # (AUTO) 4.1 X10'3 (1.8-7.7); NEUTROPHILS % (AUTO) 58.2 % (42-75); PLATELET COUNT 133 X10'3 (140-440); RED BLOOD COUNT 3.73 X10'6 (4.20-5.60); RED CELL DISTRIBUTION WIDTH 22.1 % (11.5-14.5)
[2019-06-09 03:59] LABS: PARTIAL THROMBOPLASTIN TIME 27 SECONDS (22-32)
[2019-06-09 04:01] LABS: ALANINE AMINOTRANSFERASE 71 U/L (12-78); ALBUMIN/GLOBULIN RATIO 0.8 (1.1-1.5); ALKALINE PHOSPHATASE 199 IU/L (46-116); ANION GAP 7 (8-16); ASPARTATE AMINO TRANSFERASE 15 U/L (10-37); BILIRUBIN,TOTAL 0.7 MG/DL (0.1-1.0); BLOOD UREA NITROGEN 77 MG/DL (7-18); BUN/CREATININE RATIO 29.3 (6.6-38.0); CALCIUM 8.8 MG/DL (8.5-10.1); CHLORIDE 105 MMOL/L (99-107); CREATININE 2.63 MG/DL (0.40-0.90); GLUCOSE 353 MG/DL (70-104); POTASSIUM 4.5 MMOL/L (3.5-5.1); SODIUM 140 MMOL/L (135-145); TOTAL CARBON DIOXIDE 28.4 MMOL/L (24-32); TOTAL PROTEIN 6.7 G/DL (6.4-8.2); eGFR 18 ML/MIN
[2019-06-09] MEDS ORDERED: CefTRIAXone/D5W-Rocephin 1gm 50 ML IV ONE (04:20)
[2019-06-09 04:46] LABS: CLARITY,URINE CLOUDY (Clear); COLOR,URINE YELLOW (Yellow); GLUCOSE, URINE NEGATIVE (Neg); KETONES,URINE NEGATIVE (Neg); LEUKOCYTE ESTERASE ,URINE TRACE (Neg); NITRITES, URINE NEGATIVE (Neg); OCCULT BLOOD,URINE NEGATIVE (Neg); PH,URINE 5.5 (4.8-8.0); PROTEIN,URINE TRACE mg/dl (Neg); UROBILINOGEN,URINE 0.2 E.U/dL (0.2-1.0)
[2019-06-09] MEDS ORDERED: furosemide 10 MG/1 ML 10ml inj IV ONE (04:50)
[2019-06-09 04:56] LABS: UA COLLECTION TYPE STRAIGHT CATH
[2019-06-09] MEDS ORDERED: [UNRECOGNIZED DRUG - CODE] (05:12)
[2019-06-09 05:51] LABS: HYALINE CASTS >30 /LPF (NEGATIVE)
[2019-06-09 05:53] LABS: BACTERIA,URINE 4+ /HPF (Neg); MUCUS STRANDS NONE SEEN /LPF (Neg); RBC,URINE 0-2 /HPF (0-2); SQUAMOUS EPITHELIAL CELL,UR FEW /LPF (FEW); WBC,URINE 0-4 /HPF (0-4)
[2019-06-09] MEDS ORDERED: acetaminophen 325mg tablet PO PRN ×2 (05:55)
[2019-06-09] MEDS ORDERED: potassium CL 10mEq/100ml bag 100 ML IV PRN ×2 (05:55)
[2019-06-09] MEDS ORDERED: HYDROcodone/acetaminophen 5mg/325mg tablet PO PRN (05:55)
[2019-06-09] MEDS ORDERED: potassium Cl 20 mEq SR tablet PO PRN ×2 (05:55)
[2019-06-09] MEDS ORDERED: magnesium Cl slow-release 64mg tablet PO PRN (05:55)
[2019-06-09] MEDS ORDERED: magnesium 4gm in 100ml NS 100 ML IV PRN (05:55)
[2019-06-09] MEDS ORDERED: magnesium 2GM in 50ml NS 50 ML IV PRN (05:55)
[2019-06-09] MEDS ORDERED: morphine 2 MG/ML inj. syringe IV PRN ×2 (05:55)
[2019-06-09] MEDS ORDERED: dextrose ORAL solution 15 GM/59 ML bottle PO PRN ×2 (06:20)
[2019-06-09] MEDS ORDERED: dextrose 50%-water 50ml dispensing syringe IV PRN ×2 (06:20)
[2019-06-09] MEDS ORDERED: glucagon, human recombinant 1mg kit SUBCUT PRN (06:20)
[2019-06-09] MEDS ORDERED: MESSAGE TO PHARMACY PO ONE (06:20)
[2019-06-09] MEDS: K and/or MAG REPLACEMENT MC SCH ×2 (06:52→19:37)
[2019-06-09 07:00] VITALS: BP 121/92
[2019-06-09 07:14] LABS: D-DIMER 9.11 MG/L FEU (0-0.50)
[2019-06-09 07:27] LABS: ACANTHOCYTES 2+; ANISOCYTOSIS 3+; HYPOCHROMASIA 1+; PLATELET ESTIMATE DECREASED; POLYCHROMASIA FEW; SCHISTOCYTES FEW
[2019-06-09] MEDS: levoTHYROXINE 100mcg tablet PO SCH (08:00)
[2019-06-09] MEDS: docusate sod 100mg capsule PO SCH ×2 (08:00→19:17)
[2019-06-09] MEDS: heparin, porcine 5000 units/ml vial SQ SCH ×2 (08:00→19:26)
[2019-06-09 11:00] VITALS: BP 121/102
[2019-06-09] MEDS: methylPREDNISolone sod succ 125mg/2ml vial IV SCH ×2 (11:39→19:18)
[2019-06-09] MEDS: furosemide 10 MG/1 ML 10ml inj IV SCH (11:40)
[2019-06-09] MEDS: insulin Lispro (HumaLOG) vial - multi-dose SQ SCH ×3 (13:24→21:38)
[2019-06-09 15:00] VITALS: BP 118/77
[2019-06-09 18:00] VITALS: BP 82/62
--- NOTE | 2019-06-09 18:00 | NUR ---
Patient in room PCU 3022. I have received report from RODRIGO Casper and had the opportunity to ask questions and assume patient care.
--- NOTE | 2019-06-09 18:13 | NUR ---
Problems reprioritized. Patient report given, questions answered & plan of care reviewed with RODRIGO Gan.
[2019-06-09] MEDS: insulin glargine (Lantus) pen - multi-dose SQ SCH (21:37)
[2019-06-09] MEDS: atorvastatin 20mg tablet PO SCH (21:41)
[2019-06-09 22:00] VITALS: BP 114/87
--- NOTE | 2019-06-09 23:07 | NUR ---
PAGER ID: [phone] MESSAGE: Mary Neely in 3022A Blood sugar 407 @2135 and after treatment BS was 345 @7886. RODRIGO Gan [phone]
[2019-06-10 02:00] VITALS: BP 120/88
[2019-06-10] MEDS: CefTRIAXone 2gm/D5W 50ml 50 ML IV SCH (03:46)
--- NOTE | 2019-06-10 05:58 | NUR ---
Student Medication Administration: For this medication-pass time frame, all medication were reviewed, dispensed, administered and documented per hospital policy by Karen SANTACRUZ. Student documentation: I have reviewed and agree with all interventions, assessments performed and documented by Karen SANTACRUZ.
[2019-06-10 06:00] VITALS: BP 100/67
[2019-06-10 06:09] LABS: BASOPHILS % (AUTO) 0.2 % (0-1); EOSINOPHILS % (AUTO) 0 % (0-6); HEMOGLOBIN 10.7 g/dl (12.0-16.0); LYMPHOCYTES # (AUTO) 0.4 X10'3 (1.1-4.8); LYMPHOCYTES % (AUTO) 7.5 % (21-51); MEAN CORPUSCULAR HEMOGLOBIN 28.9 PG (27.0-31.0); MEAN CORPUSCULAR HGB CONC 32.5 g/dL (33.0-36.5); MONOCYTES # (AUTO) 0.1 X10'3 (0-0.9); MONOCYTES % (AUTO) 2.4 % (2-12); NEUTROPHILS # (AUTO) 4.6 X10'3 (1.8-7.7); NEUTROPHILS % (AUTO) 89.9 % (42-75); PLATELET COUNT 143 X10'3 (140-440); RED CELL DISTRIBUTION WIDTH 21.7 % (11.5-14.5); WHITE BLOOD COUNT 5.1 X10'3 (4.5-11.0)
[2019-06-10 06:27] LABS: ALANINE AMINOTRANSFERASE 61 U/L (12-78); ALBUMIN/GLOBULIN RATIO 0.8 (1.1-1.5); ALKALINE PHOSPHATASE 160 IU/L (46-116); ANION GAP 12 (8-16); ASPARTATE AMINO TRANSFERASE 15 U/L (10-37); BILIRUBIN,TOTAL 0.6 MG/DL (0.1-1.0); BLOOD UREA NITROGEN 87 MG/DL (7-18); BUN/CREATININE RATIO 31.5 (6.6-38.0); CALCIUM 9.2 MG/DL (8.5-10.1); CHLORIDE 102 MMOL/L (99-107); CREATININE 2.76 MG/DL (0.40-0.90); GLUCOSE 262 MG/DL (70-104); MAGNESIUM 2.2 MG/DL (1.5-2.4); POTASSIUM 4.9 MMOL/L (3.5-5.1); SODIUM 137 MMOL/L (135-145); TOTAL CARBON DIOXIDE 23.5 MMOL/L (24-32); TOTAL PROTEIN 6.8 G/DL (6.4-8.2); eGFR 17 ML/MIN
--- NOTE | 2019-06-10 06:38 | NUR ---
Problems reprioritized. Patient report given, questions answered & plan of care reviewed with RODRIGO Alexis.
--- NOTE | 2019-06-10 07:05 | NUR ---
Patient in room PCU 3022. I have received report from RODRIGO CHUNG and had the opportunity to ask questions and assume patient care.
[2019-06-10 07:30] LABS: PLATELET ESTIMATE NORMAL; POLYCHROMASIA 1+
[2019-06-10 07:31] LABS: ANISOCYTOSIS 3+; POIKILOCYTOSIS 1+
[2019-06-10 07:32] LABS: ACANTHOCYTES 2+; BURR CELLS 1+; SCHISTOCYTES 1+
[2019-06-10] MEDS: K and/or MAG REPLACEMENT MC SCH ×2 (08:00→20:00)
[2019-06-10] MEDS: furosemide 10 MG/1 ML 10ml inj IV SCH (09:17)
[2019-06-10] MEDS: docusate sod 100mg capsule PO SCH ×2 (09:18→21:18)
[2019-06-10] MEDS: levoTHYROXINE 100mcg tablet PO SCH (09:18)
[2019-06-10] MEDS: methylPREDNISolone sod succ 125mg/2ml vial IV SCH ×2 (09:18→21:16)
[2019-06-10] MEDS: heparin, porcine 5000 units/ml vial SQ SCH ×2 (09:19→21:17)
[2019-06-10] MEDS: insulin Lispro (HumaLOG) vial - multi-dose SQ SCH ×3 (09:31→19:13)
[2019-06-10 11:00] VITALS: BP 106/63
[2019-06-10] MEDS: ondansetron/PF 4mg/2ml inj IV PRN (13:22)
--- NOTE | 2019-06-10 13:45 | NUR ---
PAGER ID: [phone] MESSAGE: DR. JASSO, 3092G/DARRYL, POSITIVE MRSA NASAL SWAB. CONSIDERED CRITICAL RESULT. MAGDALENO [id number]. TY.
[2019-06-10 15:00] VITALS: BP 102/45
--- NOTE | 2019-06-10 18:30 | NUR ---
Patient in room PCU 3022. I have received report from MAGDALENO and had the opportunity to ask questions and assume patient care. ASSUMED CARE OF PT WITH RN STUDENT ALBA Armenta
--- NOTE | 2019-06-10 18:38 | NUR ---
Problems reprioritized. Patient report given, questions answered & plan of care reviewed with RODRIGO MALLORY.
[2019-06-10 19:15] VITALS: BP 96/62
[2019-06-10] MEDS: insulin glargine (Lantus) pen - multi-dose SQ SCH (21:14)
[2019-06-10] MEDS: atorvastatin 20mg tablet PO SCH (21:18)
[2019-06-10 23:00] VITALS: BP 100/58
[2019-06-10] MEDS: albuterol 2.5 MG/3 ML nebule NEB SCH (23:47)
[2019-06-11] VITALS (11 sets, daily range): BP systolic 63–105; BP diastolic 34–85
[2019-06-11] MEDS: albuterol 2.5 MG/3 ML nebule NEB SCH ×6 (03:46→23:33)
[2019-06-11] MEDS: CefTRIAXone 2gm/D5W 50ml 50 ML IV SCH (03:46)
--- NOTE | 2019-06-11 05:23 | NUR ---
Student documentation: I have reviewed and agree with all interventions, assessments performed and documented by ALBA Armenta
--- NOTE | 2019-06-11 05:24 | NUR ---
Student Medication Administration: For this medication-pass time frame, all medication were reviewed, dispensed, administered and documented per hospital policy by ALBA Armenta
--- NOTE | 2019-06-11 06:21 | NUR ---
Patient in room PCU 3022. I have received report from RODRIGO MALLORY and had the opportunity to ask questions and assume patient care.
--- NOTE | 2019-06-11 06:21 | NUR ---
Problems reprioritized. Patient report given, questions answered & plan of care reviewed with MAGDALENO.
[2019-06-11 06:47] LABS: BASOPHILS % (AUTO) 0.1 % (0-1); EOSINOPHILS % (AUTO) 0 % (0-6); HEMATOCRIT 33.5 % (35.0-45.0); HEMOGLOBIN 10.8 g/dl (12.0-16.0); LYMPHOCYTES # (AUTO) 0.2 X10'3 (1.1-4.8); LYMPHOCYTES % (AUTO) 2.6 % (21-51); MEAN CORPUSCULAR HEMOGLOBIN 28.6 PG (27.0-31.0); MEAN CORPUSCULAR HGB CONC 32.1 g/dL (33.0-36.5); MEAN CORPUSCULAR VOLUME 89.1 FL (78-98); MEAN PLATELET VOLUME 8.9 FL (7.4-10.4); MONOCYTES # (AUTO) 0.1 X10'3 (0-0.9); MONOCYTES % (AUTO) 1.6 % (2-12); NEUTROPHILS # (AUTO) 8.8 X10'3 (1.8-7.7); NEUTROPHILS % (AUTO) 95.7 % (42-75); PLATELET COUNT 157 X10'3 (140-440); RED BLOOD COUNT 3.76 X10'6 (4.20-5.60); RED CELL DISTRIBUTION WIDTH 21.9 % (11.5-14.5); WHITE BLOOD COUNT 9.2 X10'3 (4.5-11.0)
[2019-06-11 06:50] LABS: ALANINE AMINOTRANSFERASE 49 U/L (12-78); ALBUMIN 2.9 G/DL (3.4-5.0); ALBUMIN/GLOBULIN RATIO 0.8 (1.1-1.5); ALKALINE PHOSPHATASE 147 IU/L (46-116); ANION GAP 10 (8-16); ASPARTATE AMINO TRANSFERASE 15 U/L (10-37); BILIRUBIN,TOTAL 0.5 MG/DL (0.1-1.0); BLOOD UREA NITROGEN 101 MG/DL (7-18); BUN/CREATININE RATIO 37.8 (6.6-38.0); CALCIUM 8.7 MG/DL (8.5-10.1); CHLORIDE 103 MMOL/L (99-107); CREATININE 2.67 MG/DL (0.40-0.90); GLUCOSE 101 MG/DL (70-104); MAGNESIUM 2.2 MG/DL (1.5-2.4); POTASSIUM 5.2 MMOL/L (3.5-5.1); SODIUM 136 MMOL/L (135-145); TOTAL CARBON DIOXIDE 23.5 MMOL/L (24-32); TOTAL PROTEIN 6.6 G/DL (6.4-8.2); eGFR 17 ML/MIN
[2019-06-11] MEDS: HYDROcodone/acetaminophen 10/325mg tab PO PRN (06:59)
[2019-06-11] MEDS: K and/or MAG REPLACEMENT MC SCH ×2 (08:00→21:34)
[2019-06-11] MEDS: furosemide 10 MG/1 ML 10ml inj IV SCH (08:33)
[2019-06-11] MEDS: heparin, porcine 5000 units/ml vial SQ SCH ×2 (08:34→21:04)
[2019-06-11] MEDS: docusate sod 100mg capsule PO SCH ×2 (08:34→21:05)
[2019-06-11] MEDS: levoTHYROXINE 100mcg tablet PO SCH (08:34)
[2019-06-11] MEDS: methylPREDNISolone sod succ 125mg/2ml vial IV SCH ×2 (08:34→21:03)
[2019-06-11 08:58] LABS: PLATELET ESTIMATE NORMAL
[2019-06-11 08:59] LABS: ANISOCYTOSIS 3+; BURR CELLS 1+; SCHISTOCYTES 1+
[2019-06-11 09:00] LABS: ACANTHOCYTES 2+; ELLIPTOCYTES 1+
[2019-06-11] MEDS: insulin Lispro (HumaLOG) vial - multi-dose SQ SCH ×2 (09:24→14:05)
[2019-06-11] MEDS: DOBUTamine-DoBUTrex 500mg/D5W 250 ML IV SCH (11:11)
--- NOTE | 2019-06-11 17:28 | NUR ---
PAGER ID: [phone] MESSAGE: , [id number]/JAY ANDREWS BP 84/44 MANUAL CUFF WITH DOPPLER. MAP 57. DOBUTAMINE GTT AT 5MCG/KG/MIN. PLEASE CALL MAGDALENO [id number]. TY.
[2019-06-11] MEDS ORDERED: normal saline 1000ml 1,000 ML IV ONE (17:30)
--- NOTE | 2019-06-11 17:59 | NUR ---
SOMEONE EMPTIED YEBOAH CATHETER, DID NOT RECORD. INFORMED RENETTA THIBODEAUX RN
--- NOTE | 2019-06-11 18:49 | NUR ---
Problems reprioritized. Patient report given, questions answered & plan of care reviewed with [].
--- NOTE | 2019-06-11 18:53 | NUR ---
Problems reprioritized. Patient report given, questions answered & plan of care reviewed with RODRIGO VALE.
[2019-06-11] MEDS: atorvastatin 20mg tablet PO SCH (21:05)
[2019-06-11] MEDS: insulin glargine (Lantus) pen - multi-dose SQ SCH (21:19)
[2019-06-12] VITALS (11 sets, daily range): BP systolic 80–102; BP diastolic 39–85
[2019-06-12] MEDS: albuterol 2.5 MG/3 ML nebule NEB SCH ×6 (03:39→23:50)
[2019-06-12 05:33] LABS: BASOPHILS % (AUTO) 0 % (0-1); EOSINOPHILS % (AUTO) 0 % (0-6); HEMATOCRIT 29.9 % (35.0-45.0); HEMOGLOBIN 9.6 g/dl (12.0-16.0); LYMPHOCYTES # (AUTO) 0.2 X10'3 (1.1-4.8); LYMPHOCYTES % (AUTO) 2.5 % (21-51); MEAN CORPUSCULAR HEMOGLOBIN 28.8 PG (27.0-31.0); MEAN CORPUSCULAR HGB CONC 32.2 g/dL (33.0-36.5); MEAN CORPUSCULAR VOLUME 89.4 FL (78-98); MONOCYTES # (AUTO) 0.1 X10'3 (0-0.9); NEUTROPHILS # (AUTO) 5.9 X10'3 (1.8-7.7); NEUTROPHILS % (AUTO) 95.5 % (42-75); PLATELET COUNT 126 X10'3 (140-440); RED BLOOD COUNT 3.34 X10'6 (4.20-5.60); RED CELL DISTRIBUTION WIDTH 21.9 % (11.5-14.5); WHITE BLOOD COUNT 6.2 X10'3 (4.5-11.0)
[2019-06-12] MEDS: CefTRIAXone 2gm/D5W 50ml 50 ML IV SCH (05:34)
[2019-06-12 05:47] LABS: ALANINE AMINOTRANSFERASE 44 U/L (12-78); ALBUMIN 2.7 G/DL (3.4-5.0); ALBUMIN/GLOBULIN RATIO 0.8 (1.1-1.5); ALKALINE PHOSPHATASE 129 IU/L (46-116); ANION GAP 12 (8-16); ASPARTATE AMINO TRANSFERASE 18 U/L (10-37); BILIRUBIN,TOTAL 0.4 MG/DL (0.1-1.0); BLOOD UREA NITROGEN 106 MG/DL (7-18); BUN/CREATININE RATIO 30.6 (6.6-38.0); CHLORIDE 101 MMOL/L (99-107); CREATININE 3.46 MG/DL (0.40-0.90); GLUCOSE 210 MG/DL (70-104); MAGNESIUM 2.2 MG/DL (1.5-2.4); POTASSIUM 5.5 MMOL/L (3.5-5.1); SODIUM 136 MMOL/L (135-145); TOTAL CARBON DIOXIDE 23.4 MMOL/L (24-32); eGFR 13 ML/MIN
--- NOTE | 2019-06-12 06:19 | NUR ---
Problems reprioritized. Patient report given, questions answered & plan of care reviewed with Kassi rn.
--- NOTE | 2019-06-12 06:19 | NUR ---
PT RESTED THROUGH THE NIGHT. BED BATH GIVEN, LINENS CHANGED. BP LOW BUT PT ASYMPTOMATIC ALL NIGHT. VERY TALKATIVE. NEW PIV STARTED FOR ABX.
--- NOTE | 2019-06-12 06:30 | NUR ---
Patient in room PCU 3022. I have received report from RODRIGO VALE and had the opportunity to ask questions and assume patient care.
--- NOTE | 2019-06-12 06:30 | NUR ---
Student documentation: I have reviewed and agree with all interventions, meds given assessments performed and documented by Maris Student nurse.
[2019-06-12] MEDS: furosemide 10 MG/1 ML 10ml inj IV SCH (08:00)
[2019-06-12] MEDS: K and/or MAG REPLACEMENT MC SCH ×2 (08:00→20:00)
[2019-06-12] MEDS: ondansetron/PF 4mg/2ml inj IV PRN ×2 (08:15→17:05)
[2019-06-12] MEDS: heparin, porcine 5000 units/ml vial SQ SCH ×2 (08:20→21:18)
[2019-06-12] MEDS: methylPREDNISolone sod succ 125mg/2ml vial IV SCH ×2 (08:20→21:18)
[2019-06-12] MEDS: insulin Lispro (HumaLOG) vial - multi-dose SQ SCH ×2 (08:25→13:46)
[2019-06-12] MEDS ORDERED: sodium polystyrene sulfonate 15gm/60ml oral suspension PO ONE (08:25)
[2019-06-12] MEDS: DOBUTamine-DoBUTrex 500mg/D5W 250 ML IV SCH (08:27)
[2019-06-12] MEDS: levoTHYROXINE 100mcg tablet PO SCH (09:35)
[2019-06-12] MEDS: docusate sod 100mg capsule PO SCH ×2 (09:36→21:15)
--- NOTE | 2019-06-12 13:16 | NUR ---
PAGER ID: [phone] MESSAGE: DR. GARCIA, [id number]/ DARRYL, NAUSEA THIS AM WITH BREAKFAST, ZOFRAN 4MG IV ADM WITH RELIEF. NAUSEA WITH LUNCH, TOO SOON TO REPEAT ZOFRAN. CAN I PLEASE HAVE A SECOND ANTI EMETIC ORDER? MAGDALENO [id number]. TY
[2019-06-12 13:25] LABS: ACANTHOCYTES 1+; ANISOCYTOSIS 3+; BURR CELLS 2+; ELLIPTOCYTES 1+; PLATELET ESTIMATE DECREASED
[2019-06-12 13:26] LABS: HYPOCHROMASIA 1+
--- NOTE | 2019-06-12 18:28 | NUR ---
Problems reprioritized. Patient report given, questions answered & plan of care reviewed with RODRIGO VALE.
[2019-06-12] MEDS: atorvastatin 20mg tablet PO SCH (21:15)
[2019-06-12] MEDS: insulin glargine (Lantus) pen - multi-dose SQ SCH (21:22)
[2019-06-13] VITALS (13 sets, daily range): BP systolic 59–112; BP diastolic 27–91
[2019-06-13] MEDS ORDERED: temazepam 15mg capsule PO PRN (00:25)
--- NOTE | 2019-06-13 02:23 | NUR ---
pt is still restless and slightly confused, thinks she is at home. rearranged IV and mobile lines. repositioned pt. resting now.
[2019-06-13] MEDS: albuterol 2.5 MG/3 ML nebule NEB SCH ×6 (02:47→23:05)
[2019-06-13] MEDS: CefTRIAXone 2gm/D5W 50ml 50 ML IV SCH (04:05)
--- NOTE | 2019-06-13 05:34 | NUR ---
arina does not agree with pt. she has been very restless, wants to get out of bed, wants to get out of her body. she is talking in her sleep.
[2019-06-13 05:59] LABS: BASOPHILS % (AUTO) 0.1 % (0-1); EOSINOPHILS % (AUTO) 0 % (0-6); HEMATOCRIT 29.7 % (35.0-45.0); HEMOGLOBIN 9.6 g/dl (12.0-16.0); LYMPHOCYTES # (AUTO) 0.1 X10'3 (1.1-4.8); LYMPHOCYTES % (AUTO) 1.4 % (21-51); MEAN CORPUSCULAR HGB CONC 32.4 g/dL (33.0-36.5); MEAN CORPUSCULAR VOLUME 89.7 FL (78-98); MEAN PLATELET VOLUME 9.5 FL (7.4-10.4); MONOCYTES # (AUTO) 0.1 X10'3 (0-0.9); MONOCYTES % (AUTO) 1.7 % (2-12); NEUTROPHILS # (AUTO) 5.8 X10'3 (1.8-7.7); NEUTROPHILS % (AUTO) 96.8 % (42-75); PLATELET COUNT 123 X10'3 (140-440); RED BLOOD COUNT 3.31 X10'6 (4.20-5.60); RED CELL DISTRIBUTION WIDTH 21.3 % (11.5-14.5)
[2019-06-13 06:07] LABS: ALANINE AMINOTRANSFERASE 38 U/L (12-78); ALBUMIN 2.7 G/DL (3.4-5.0); ALBUMIN/GLOBULIN RATIO 0.8 (1.1-1.5); ALKALINE PHOSPHATASE 120 IU/L (46-116); ANION GAP 10 (8-16); ASPARTATE AMINO TRANSFERASE 21 U/L (10-37); BILIRUBIN,TOTAL 0.4 MG/DL (0.1-1.0); BLOOD UREA NITROGEN 115 MG/DL (7-18); BUN/CREATININE RATIO 31.3 (6.6-38.0); CALCIUM 7.9 MG/DL (8.5-10.1); CHLORIDE 100 MMOL/L (99-107); CREATININE 3.68 MG/DL (0.40-0.90); GLUCOSE 139 MG/DL (70-104); MAGNESIUM 2.1 MG/DL (1.5-2.4); SODIUM 134 MMOL/L (135-145); TOTAL CARBON DIOXIDE 23.9 MMOL/L (24-32); TOTAL PROTEIN 5.9 G/DL (6.4-8.2); eGFR 12 ML/MIN
[2019-06-13 06:10] LABS: POTASSIUM 5.4 MMOL/L (3.5-5.1)
--- NOTE | 2019-06-13 06:31 | NUR ---
Problems reprioritized. Patient report given, questions answered & plan of care reviewed with Iliana WALLACE.
--- NOTE | 2019-06-13 06:50 | NUR ---
Patient in room PCU 3022. I have received report from Gabi WALLACE and had the opportunity to ask questions and assume patient care. Patient laying in bed, eyes closed, dobutamine infusing at ordered rate.
[2019-06-13 07:19] LABS: ANISOCYTOSIS 3+; PLATELET ESTIMATE DECREASED
[2019-06-13 07:20] LABS: BURR CELLS 1+; ELLIPTOCYTES FEW
[2019-06-13 07:21] LABS: ACANTHOCYTES 1+
[2019-06-13] MEDS: docusate sod 100mg capsule PO SCH ×2 (08:00→19:56)
[2019-06-13] MEDS: K and/or MAG REPLACEMENT MC SCH ×2 (08:00→20:00)
[2019-06-13] MEDS: levoTHYROXINE 100mcg tablet PO SCH (08:00)
[2019-06-13] MEDS: DOBUTamine-DoBUTrex 500mg/D5W 250 ML IV SCH (08:29)
[2019-06-13] MEDS: heparin, porcine 5000 units/ml vial SQ SCH ×2 (08:29→20:00)
[2019-06-13] MEDS: methylPREDNISolone sod succ 125mg/2ml vial IV SCH ×2 (08:29→19:55)
[2019-06-13] MEDS ORDERED: sodium polystyrene sulfonate 15gm/60ml oral suspension PO ONE (12:45)
[2019-06-13] MEDS: insulin Lispro (HumaLOG) vial - multi-dose SQ SCH ×2 (14:31→20:02)
[2019-06-13] MEDS: lactobacillus rhamnosus 10,000 MMU CELLS/CAPSULE PO SCH (19:56)
[2019-06-13] MEDS: atorvastatin 20mg tablet PO SCH (21:12)
[2019-06-13] MEDS: insulin glargine (Lantus) pen - multi-dose SQ SCH (21:16)
[2019-06-14] VITALS: BP 79/53
[2019-06-14 02:00] VITALS: BP 74/35
[2019-06-14] MEDS: DOBUTamine-DoBUTrex 500mg/D5W 250 ML IV SCH ×2 (02:42→06:10)
[2019-06-14] MEDS: albuterol 2.5 MG/3 ML nebule NEB SCH ×4 (03:32→15:33)
[2019-06-14 04:00] VITALS: BP 93/41
[2019-06-14] MEDS: CefTRIAXone 2gm/D5W 50ml 50 ML IV SCH (04:28)
[2019-06-14 05:37] LABS: BASOPHILS % (AUTO) 0 % (0-1); EOSINOPHILS % (AUTO) 0 % (0-6); HEMOGLOBIN 9.6 g/dl (12.0-16.0); LYMPHOCYTES # (AUTO) 0.1 X10'3 (1.1-4.8); MEAN CORPUSCULAR HEMOGLOBIN 29.2 PG (27.0-31.0); MEAN CORPUSCULAR HGB CONC 33.1 g/dL (33.0-36.5); MEAN CORPUSCULAR VOLUME 88.1 FL (78-98); MEAN PLATELET VOLUME 9.1 FL (7.4-10.4); MONOCYTES # (AUTO) 0.2 X10'3 (0-0.9); PLATELET COUNT 115 X10'3 (140-440); RED BLOOD COUNT 3.29 X10'6 (4.20-5.60); RED CELL DISTRIBUTION WIDTH 21.5 % (11.5-14.5); WHITE BLOOD COUNT 5.3 X10'3 (4.5-11.0)
[2019-06-14 05:53] LABS: ALANINE AMINOTRANSFERASE 38 U/L (12-78); ALBUMIN 2.7 G/DL (3.4-5.0); ALBUMIN/GLOBULIN RATIO 0.9 (1.1-1.5); ALKALINE PHOSPHATASE 118 IU/L (46-116); ANION GAP 11 (8-16); ASPARTATE AMINO TRANSFERASE 17 U/L (10-37); BILIRUBIN,TOTAL 0.4 MG/DL (0.1-1.0); BLOOD UREA NITROGEN 115 MG/DL (7-18); BUN/CREATININE RATIO 29.4 (6.6-38.0); CALCIUM 8.1 MG/DL (8.5-10.1); CHLORIDE 102 MMOL/L (99-107); CREATININE 3.91 MG/DL (0.40-0.90); GLUCOSE 84 MG/DL (70-104); MAGNESIUM 2.2 MG/DL (1.5-2.4); POTASSIUM 4.8 MMOL/L (3.5-5.1); SODIUM 136 MMOL/L (135-145); TOTAL CARBON DIOXIDE 23.2 MMOL/L (24-32); TOTAL PROTEIN 5.8 G/DL (6.4-8.2); eGFR 11 ML/MIN
[2019-06-14 06:00] VITALS: BP 86/46
--- NOTE | 2019-06-14 06:53 | NUR ---
Problems reprioritized. Patient report given, questions answered & plan of care reviewed with Jessica WALLACE.
[2019-06-14] MEDS: heparin, porcine 5000 units/ml vial SQ SCH (07:40)
[2019-06-14] MEDS: methylPREDNISolone sod succ 125mg/2ml vial IV SCH (07:41)
[2019-06-14] MEDS: levoTHYROXINE 100mcg tablet PO SCH (07:41)
[2019-06-14] MEDS: docusate sod 100mg capsule PO SCH (07:41)
[2019-06-14] MEDS: lactobacillus rhamnosus 10,000 MMU CELLS/CAPSULE PO SCH (07:41)
[2019-06-14] MEDS: K and/or MAG REPLACEMENT MC SCH (07:52)
[2019-06-14 10:13] LABS: ACANTHOCYTES 1+; ANISOCYTOSIS 3+; BURR CELLS 1+; ELLIPTOCYTES 1+; HYPOCHROMASIA 1+; PLATELET ESTIMATE DECREASED
[2019-06-14 11:00] VITALS: BP 101/57
[2019-06-14] MEDS ORDERED: normal saline 1000ml 1,000 ML IV SCH (13:00)
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
[2019-06-14 15:00] VITALS: BP 109/43
--- NOTE | 2019-06-14 15:25 | NUR ---
PAGER ID: [phone] MESSAGE: [phone] Eli Neely Needs transfer orders to [facility]. Transport is here. Thank you!
[2019-06-14] MEDS: HYDROcodone/acetaminophen 10/325mg tab PO PRN (16:01)
--- NOTE | 2019-06-14 16:05 | NUR ---
Per MD orders, patient stable for transfer to [facility]. Discharge packet reviewed with flight nurse Ayde WALLACE. Report called to receiving nurse Dawood WALLAEC from [facility]. Discontinued mobil monitoring. IV access kept in. Lantigua catheter kept in. All belongings sent with patient. Transferred to helicopter via gurney accompanied by Flight RN. This was an abrupt and urgent transfer that did not allow time for wound pictures to be taken prior to transfer. Receiving nurse Dawood WALLACE aware of area(s) of concern.
== END 2019-06-14 16:05 | disposition short-term general hospital (02) | DRG 291 ==
LOC: ER 02:47 → ED HOLD 06:00 → PCU 3S 06:55
PROVIDERS: ADMIT Internal Medicine; ATTEND Internal Medicine
DX: I13.0 Hypertensive heart and chronic kidney disease with heart failure and stage 1 through stage 4 chronic kidney disease, or unspecified chronic kidney disease (principal); I50.23 Acute on chronic systolic (congestive) heart failure; J44.1 Chronic obstructive pulmonary disease with (acute) exacerbation; L03.115 Cellulitis of right lower limb; N18.4 Chronic kidney disease, stage 4 (severe); N17.9 Acute kidney failure, unspecified; N39.0 Urinary tract infection, site not specified; L97.919 Non-pressure chronic ulcer of unspecified part of right lower leg with unspecified severity; I48.19 Other persistent atrial fibrillation; I35.0 Nonrheumatic aortic (valve) stenosis; I27.21 Secondary pulmonary arterial hypertension; B96.1 Klebsiella pneumoniae [K. pneumoniae] as the cause of diseases classified elsewhere; E03.9 Hypothyroidism, unspecified; E11.22 Type 2 diabetes mellitus with diabetic chronic kidney disease; E78.5 Hyperlipidemia, unspecified; I25.10 Atherosclerotic heart disease of native coronary artery without angina pectoris; I48.0 Paroxysmal atrial fibrillation; Z90.49 Acquired absence of other specified parts of digestive tract; Z60.2 Problems related to living alone; D63.8 Anemia in other chronic diseases classified elsewhere; K21.9 Gastro-esophageal reflux disease without esophagitis; Z66 Do not resuscitate; Z95.1 Presence of aortocoronary bypass graft; Z95.5 Presence of coronary angioplasty implant and graft; Z79.899 Other long term (current) drug therapy; E87.5 Hyperkalemia
CPT/HCPCS: 36415; 36600; 71045; 80053; 81001; 82803; 82948; 83605; 83735; 83880; 84145; 84484; 85018; 85025; 85379; 85610; 85730; 87040; 87077; 87081; 87088; 87186; 93005; 93308; 93350; 94640; 94760; 96365; 96375; 97116; 97161; 97530; 99285; G0378; J0696; J1250; J1644; J1815; J1940; J2060; J2405; J2930; J7030

== ENCOUNTER 2020-05-12 15:35 | Emergency (ER) | payer MEDICARE, OTHER ==
[~2020-05-12] VITALS: Ht 160 cm; Wt 58.4 kg
[~2020-05-12 15:35] MED LIST changes: -ACET-3080 PO; -BISA10SU60 RC; -DOCU-20 PO; +DOCU100C40 PO; -IPRA3AMP31 IH; -LACT1CAP65 PO; -LANTUS SUBCUT; -NITR0.4T48 SL; +[UNRECOGNIZED DRUG - CODE]
[2020-05-12 17:44] LABS: HEMOGLOBIN 11.6 g/dl (12.0-16.0); PLATELET COUNT 177 X10'3 (140-440)
[2020-05-12 17:46] LABS: ALANINE AMINOTRANSFERASE 14 U/L (12-78); ALBUMIN 3.5 G/DL (3.4-5.0); ALBUMIN/GLOBULIN RATIO 0.8 (1.1-1.5); ALKALINE PHOSPHATASE 106 IU/L (46-116); ANION GAP 13 (8-16); ASPARTATE AMINO TRANSFERASE 16 U/L (10-37); BILIRUBIN,TOTAL 0.6 MG/DL (0.1-1.0); BLOOD UREA NITROGEN 116 MG/DL (7-18); BUN/CREATININE RATIO 40.4 (6.6-38.0); CALCIUM 9.5 MG/DL (8.5-10.1); CHLORIDE 98 MMOL/L (99-107); CREATININE 2.87 MG/DL (0.40-0.90); GLUCOSE 128 MG/DL (70-104); SODIUM 139 MMOL/L (135-145); TOTAL CARBON DIOXIDE 28.3 MMOL/L (24-32); TOTAL PROTEIN 7.9 G/DL (6.4-8.2); eGFR 16 ML/MIN
[2020-05-12 17:48] LABS: BASOPHILS % (AUTO) 0.7 % (0-1); EOSINOPHILS # (AUTO) 0.1 X10'3 (0-0.9); EOSINOPHILS % (AUTO) 1.1 % (0-6); LYMPHOCYTES # (AUTO) 1.4 X10'3 (1.1-4.8); MEAN CORPUSCULAR HEMOGLOBIN 29.3 PG (27.0-31.0); MEAN CORPUSCULAR VOLUME 86.2 FL (78-98); MEAN PLATELET VOLUME 8.2 FL (7.4-10.4); MONOCYTES # (AUTO) 0.9 X10'3 (0-0.9); NEUTROPHILS # (AUTO) 4.6 X10'3 (1.8-7.7); NEUTROPHILS % (AUTO) 65.2 % (42-75); RED BLOOD COUNT 3.94 X10'6 (4.20-5.60); RED CELL DISTRIBUTION WIDTH 15.1 % (11.5-14.5)
[2020-05-12 17:54] LABS: POTASSIUM 2.9 MMOL/L (3.5-5.1)
[2020-05-12] MEDS ORDERED: POTASSIUM BICARB 20meq eff tab 20 MEQ TABLET.EFF PO ONE (18:20)
--- NOTE | 2020-05-12 19:58 | NUR ---
PT GIVEN CHICKEN BROTHE AND SALTINE CRACKERS
[2020-05-12] MEDS ORDERED: ONDA4TAB6 PO (20:20)
[2020-05-12] MEDS ORDERED: ZAR2.5T PO (20:20)
[2020-05-12] MEDS ORDERED: INSU100I31 SQ (20:20)
[2020-05-12] MEDS ORDERED: CARV3.12 PO (20:20)
[2020-05-12] MEDS ORDERED: AMIO200T61 PO (20:20)
[2020-05-12] MEDS ORDERED: DOCU-148 PO (20:20)
[2020-05-12] MEDS ORDERED: ISOS30TA9 PO (20:20)
[2020-05-12] MEDS ORDERED: MONT10TA97 PO (20:20)
[2020-05-12] MEDS ORDERED: NITR0.4T51 SL (20:20)
[2020-05-12] MEDS ORDERED: BUME1TAB8 PO (20:20)
[2020-05-12] MEDS ORDERED: ASPI81TA52 PO (20:20)
[2020-05-12] MEDS ORDERED: ROSU40TA PO (20:20)
[2020-05-12] MEDS ORDERED: FERR325T28 PO (20:20)
[2020-05-12 20:31] LABS: CLARITY,URINE SLIGHTLY CLOUDY (Clear); COLOR,URINE STRAW (Yellow); GLUCOSE, URINE NEGATIVE (Neg); KETONES,URINE NEGATIVE (Neg); LEUKOCYTE ESTERASE ,URINE TRACE (Neg); NITRITES, URINE NEGATIVE (Neg); OCCULT BLOOD,URINE TRACE-INTACT (Neg); PH,URINE 6.5 (4.8-8.0); PROTEIN,URINE TRACE mg/dl (Neg); UROBILINOGEN,URINE 0.2 E.U/dL (0.2-1.0)
[2020-05-12 20:37] LABS: UA COLLECTION TYPE CLN CATCH MIDSTREAM
[2020-05-12 20:44] LABS: BACTERIA,URINE FEW /HPF (Neg); MUCUS STRANDS NONE SEEN /LPF (Neg); RBC,URINE 0-2 /HPF (0-2); SQUAMOUS EPITHELIAL CELL,UR FEW /LPF (FEW); WBC,URINE 0-4 /HPF (0-4)
[2020-05-12 21:47] VITALS: BP 116/66
== END 2020-05-12 22:35 | disposition home or self-care (01) ==
LOC: ER 15:36
DX: I13.0 Hypertensive heart and chronic kidney disease with heart failure and stage 1 through stage 4 chronic kidney disease, or unspecified chronic kidney disease (principal); E11.22 Type 2 diabetes mellitus with diabetic chronic kidney disease; N17.9 Acute kidney failure, unspecified; N18.9 Chronic kidney disease, unspecified; E87.6 Hypokalemia; R53.1 Weakness; R53.83 Other fatigue; I48.91 Unspecified atrial fibrillation; J44.9 Chronic obstructive pulmonary disease, unspecified; E03.9 Hypothyroidism, unspecified; I25.10 Atherosclerotic heart disease of native coronary artery without angina pectoris; Z87.440 Personal history of urinary (tract) infections; Z86.2 Personal history of diseases of the blood and blood-forming organs and certain disorders involving the immune mechanism; Z90.49 Acquired absence of other specified parts of digestive tract; Z98.890 Other specified postprocedural states; Z79.82 Long term (current) use of aspirin; Z79.4 Long term (current) use of insulin; Z79.899 Other long term (current) drug therapy
CPT/HCPCS: 36415; 80053; 81001; 84132; 85025; 87088; 99284

== ENCOUNTER 2020-11-13 10:13 | Emergency (ER) | payer MEDICARE, OTHER ==
[~2020-11-13] VITALS: Ht 160 cm; Wt 67.4 kg
[~2020-11-13 10:13] MED LIST changes: +AMIO200T61 PO; +ASPI81TA52 PO; -ATOR40TA PO; +CARV3.12 PO; +DOCU-148 PO; -DOCU100C40 PO; +FERR325T28 PO; +INSU100I31 SQ; +ISOS30TA9 PO; -LISI2.5T2 PO; +MONT10TA32 PO; +NITR0.4T51 SL; +ONDA4TAB6 PO; +ROSU40TA PO; +ZAR2.5T PO; -[UNRECOGNIZED DRUG - CODE]
[2020-11-13 12:01] LABS: BASOPHILS % (AUTO) 0.6 % (0-1); EOSINOPHILS # (AUTO) 0.1 X10'3 (0-0.9); EOSINOPHILS % (AUTO) 1.3 % (0-6); HEMATOCRIT 34.9 % (35.0-45.0); HEMOGLOBIN 11.4 g/dl (12.0-16.0); LYMPHOCYTES # (AUTO) 0.9 X10'3 (1.1-4.8); MEAN CORPUSCULAR HEMOGLOBIN 30.1 PG (27.0-31.0); MEAN CORPUSCULAR HGB CONC 32.7 g/dL (33.0-36.5); MEAN CORPUSCULAR VOLUME 91.9 FL (78-98); MEAN PLATELET VOLUME 7.9 FL (7.4-10.4); MONOCYTES # (AUTO) 0.7 X10'3 (0-0.9); MONOCYTES % (AUTO) 9.1 % (2-12); NEUTROPHILS # (AUTO) 6.1 X10'3 (1.8-7.7); PLATELET COUNT 146 X10'3 (140-440); RED BLOOD COUNT 3.79 X10'6 (4.20-5.60); RED CELL DISTRIBUTION WIDTH 15.5 % (11.5-14.5); WHITE BLOOD COUNT 7.8 X10'3 (4.5-11.0)
[2020-11-13 12:17] VITALS: BP 115/87
[2020-11-13 12:29] LABS: ALANINE AMINOTRANSFERASE 16 U/L (12-78); ALBUMIN 3.4 G/DL (3.4-5.0); ALBUMIN/GLOBULIN RATIO 0.8 (1.1-1.5); ALKALINE PHOSPHATASE 114 IU/L (46-116); ANION GAP 8 (8-16); ASPARTATE AMINO TRANSFERASE 15 U/L (10-37); BILIRUBIN,TOTAL 0.8 MG/DL (0.1-1.0); BLOOD UREA NITROGEN 63 MG/DL (7-18); BUN/CREATININE RATIO 27.8 (6.6-38.0); C-REACTIVE PROTEIN 4.25 MG/DL (0.0-0.5); CALCIUM 8.9 MG/DL (8.5-10.1); CHLORIDE 102 MMOL/L (99-107); CREATININE 2.27 MG/DL (0.40-0.90); GLUCOSE 194 MG/DL (70-104); POTASSIUM 4.2 MMOL/L (3.5-5.1); SODIUM 138 MMOL/L (135-145); TOTAL CARBON DIOXIDE 28.3 MMOL/L (24-32); TOTAL PROTEIN 7.6 G/DL (6.4-8.2); eGFR 21 ML/MIN
[2020-11-13] MEDS ORDERED: normal saline 1000ml 1,000 ML IV ONE (12:45)
[2020-11-13 13:55] LABS: CLARITY,URINE SLIGHTLY CLOUDY (Clear); COLOR,URINE STRAW (Yellow); GLUCOSE, URINE NEGATIVE (Neg); KETONES,URINE NEGATIVE (Neg); LEUKOCYTE ESTERASE ,URINE NEGATIVE (Neg); NITRITES, URINE NEGATIVE (Neg); OCCULT BLOOD,URINE TRACE-LYSED (Neg); PH,URINE 5.5 (4.8-8.0); PROTEIN,URINE NEGATIVE (Neg)
[2020-11-13] MEDS ORDERED: CEPH-585 PO (13:55)
[2020-11-13 13:58] LABS: UA COLLECTION TYPE CLN CATCH MIDSTREAM
[2020-11-13 14:04] LABS: MUCUS STRANDS FEW /LPF (Neg); SQUAMOUS EPITHELIAL CELL,UR MANY /LPF (FEW)
[2020-11-13 14:06] LABS: BACTERIA,URINE FEW /HPF (Neg); RBC,URINE NONE SEEN /HPF (0-2); WBC,URINE 0-4 /HPF (0-4)
== END 2020-11-13 14:22 | disposition home or self-care (01) ==
LOC: ER 10:16
DX: L08.9 Local infection of the skin and subcutaneous tissue, unspecified (principal); E11.621 Type 2 diabetes mellitus with foot ulcer; I48.91 Unspecified atrial fibrillation; I25.10 Atherosclerotic heart disease of native coronary artery without angina pectoris; I11.0 Hypertensive heart disease with heart failure; I50.9 Heart failure, unspecified; J44.9 Chronic obstructive pulmonary disease, unspecified; G89.29 Other chronic pain; E03.9 Hypothyroidism, unspecified; Z87.01 Personal history of pneumonia (recurrent); Z86.2 Personal history of diseases of the blood and blood-forming organs and certain disorders involving the immune mechanism; Z87.440 Personal history of urinary (tract) infections; Z90.49 Acquired absence of other specified parts of digestive tract; Z98.890 Other specified postprocedural states; Z79.82 Long term (current) use of aspirin; Z79.2 Long term (current) use of antibiotics; Z79.4 Long term (current) use of insulin; Z79.899 Other long term (current) drug therapy
CPT/HCPCS: 36415; 73660; 80053; 81001; 82948; 83605; 84145; 85025; 85651; 86140; 87040; 96360; 99284; J7030